=== PATIENT | female | born 1950 | race Caucasian/White ===

== ENCOUNTER 2017-11-22 14:14 | Emergency (ER) | payer MEDICARE, MEDICAID, SELFPAY ==
[2017-11-22 14:15] VITALS: BP 142/62; PULSE 66; RESP 16; TEMP 36.8; O2SAT 91; BMI 46.1
--- NOTE | 2017-11-22 14:25 | ED.RN ---
THIS NURSE CALLED DR. ALMONTE'S OFFICE AND PATIENT HAS NOT BEEN SEEN BY HIM THERE. PATIENT HAS NOT BEEN SEEN BY PCP SINCE D/C FROM [facility] A MONTH AGO.
--- NOTE | 2017-11-22 15:38 | ED.VISSUMM ---
- ER Visit Summary Date of Service: 11/22/17 Chief Complaint: Left leg leaking History of Present Illness: The patient is a 67 F who states that last night she scratched her left anterior leg. It has been leaking lymph fluid since. Her legs are more swollen than normal because she did not take her Lasix on Sunday and only part of the way on Sunday. She typically takes 40 mg in the morning and 20 mg in the afternoon when she needs it. She cannot get the fluid stopped draining from the pinpoint wound on the left leg. No fevers. Physical Examination: Afebrile vital signs are stable 2/6 pitting edema of the lower extremities bilaterally. There is a pinpoint puncture wound to the left anterior leg. No surrounding erythema or evidence of infection. There is draining lymph fluid. Emergency Department Course and Treatment: 3 layers of Dermabond were applied drying in between with oxygen. Drainage was stopped. Wound was dressed. Patient was given 60 mg of Lasix here. She will take Lasix 40 mg twice daily ?4 days. She is to monitor for signs of infection return if worsening. Impression: 1. Lymphedema 2. Puncture wound left leg with repair This note was generated with [employer] dictation software. It may contain incorrect words, spelling, and punctuation that were not noted in review of the chart prior to signing ED Disposition - Plan for ED Patient: Disposition: Home or Assisted Living Chief Complaint: Wound Instructions: ED Wound Puncture General, ED Lymphedema Prescriptions: Furosemide [Lasix] 40 mg PO BIDLX #8 tab Referrals: Dale Vivar DO [Primary Care Provider] - 1 Week if not improving
--- NOTE | 2017-11-22 15:42 | ED.DCSUM_ITS ---
- ER Visit Summary Date of Service: 11/22/17 Chief Complaint: Left leg leaking History of Present Illness: The patient is a 67 F who states that last night she scratched her left anterior leg. It has been leaking lymph fluid since. Her legs are more swollen than normal because she did not take her Lasix on Sunday and only part of the way on Sunday. She typically takes 40 mg in the morning and 20 mg in the afternoon when she needs it. She cannot get the fluid stopped draining from the pinpoint wound on the left leg. No fevers. Physical Examination: Afebrile vital signs are stable 2/6 pitting edema of the lower extremities bilaterally. There is a pinpoint puncture wound to the left anterior leg. No surrounding erythema or evidence of infection. There is draining lymph fluid. Emergency Department Course and Treatment: 3 layers of Dermabond were applied drying in between with oxygen. Drainage was stopped. Wound was dressed. Patient was given 60 mg of Lasix here. She will take Lasix 40 mg twice daily ? 4 days. She is to monitor for signs of infection return if worsening. Impression: 1. Lymphedema 2. Puncture wound left leg with repair This note was generated with [employer] dictation software. It may contain incorrect words, spelling, and punctuation that were not noted in review of the chart prior to signing ED Disposition - Plan for ED Patient: Disposition: Home or Assisted Living Chief Complaint: Wound Instructions: ED Wound Puncture General, ED Lymphedema Prescriptions: Furosemide [Lasix] 40 mg PO BIDLX #8 tab Referrals: Dale Vivar DO [Primary Care Provider] - 1 Week if not improving
[2017-11-22] MEDS: Furosemide 40 MG Tablet 60 MG PO (15:54)
[2017-11-22 15:59] VITALS: PULSE 69; RESP 17; O2SAT 92
== END 2017-11-22 16:02 | disposition home or self-care (01) ==
PROVIDERS: Emergency Provider Emergency Medicine; Family Provider Student in an Organized Health Care Education/Training Program; PCP Student in an Organized Health Care Education/Training Program
DX: I89.0 Lymphedema, not elsewhere classified (principal); S81.832A Puncture wound without foreign body, left lower leg, initial encounter; E66.01 Morbid (severe) obesity due to excess calories; Z72.0 Tobacco use; X58.XXXA Exposure to other specified factors, initial encounter; Y93.89 Activity, other specified; Y92.009 Unspecified place in unspecified non-institutional (private) residence as the place of occurrence of the external cause; Y99.8 Other external cause status
CPT/HCPCS: 12001; 99283

== ENCOUNTER 2017-12-15 19:25 | Inpatient (IN) | payer MEDICARE, MEDICAID, SELFPAY ==
[2017-12-15 19:26] VITALS: BP 142/60; PULSE 90; RESP 16; TEMP 38.8; O2SAT 90; BMI 63.6
--- NOTE | 2017-12-15 19:41 | EKG12_ITS ---
Test Reason : GEN ILLNESS Blood Pressure : / mmHG Vent. Rate : 085 BPM Atrial Rate : 085 BPM P-R Int : 236 ms QRS Dur : 096 ms QT Int : 352 ms P-R-T Axes : 028 000 -44 degrees QTc Int : 418 ms Atrial flutter with 3:[address] & T wave abnormality, consider inferior ischemia ST & T wave abnormality, consider anterior ischemia Abnormal ECG Confirmed by REUBEN MEEK, KATELYNN ([id number]), fan mail editor WILMAR VILLARREAL ([id number]) on 12/18/2017 1:24:59 PM Referred By: DOUG Confirmed By:KATELYNN ALEXIS MD
[2017-12-15 20:07] LABS: Bacteria 0 SEEN /hpf (None Seen); Mucous, Urine 0 SEEN /hpf (<or=2+); Squamous Epithelial Cells - UA 0 SEEN /hpf (5-10); White Blood Cells 0 SEEN /hpf (0-5)
[2017-12-15 20:14] LABS: Absolute Lymphocyte Count 1.17 X10^3/ul (0.83-4.51); Absolute Neutrophil Count 11.3 X10^3/uL (2.0-7.7); Basophil# 0.02 X10^3/uL; Basophil% 0.1 % (0-1); Eosinophil# 0.11 X10^3/uL; Eosinophils% 0.8 % (0-5); Hemoglobin 11.3 g/dl (12.0-15.0); Lymphocyte # 1.17 X10^3/ul (4.0); Lymphocyte % 8.7 % (19-41); Mean Corp Hgb Conc 29.7 g/gl (32-36); Mean Corpuscular Hgb 24.9 pg (27.0-32.0); Mean Corpuscular Volume 83.9 fL (81-99); Mean Platelet Vol. 11.2 fl (6.2-12.0); Neutrophil # 11.25 X10^3/uL (2.7-7.7); Neutrophil % 84.1 % (47-70); Platelet Count 250 K/mm3 (150-450); RBC Distribution Width CV 20.3 % (11.6-14.6); RBC Distribution Width SD 61.9 fl (35.1-43.9); Red Blood Count 4.53 M/mm3 (4.2-5.4); White Blood Count 13.4 K/mm3 (4.4-11.0)
[2017-12-15 20:14] LABS: Color, Urine Yellow (Yellow); Glucose, Dipstick Normal (Normal); Ketone-Dipstick Negative (Negative); Leukocyte Esterase-Dipstick Negative /ul (Negative); Nitrite-Dipstick Negative (Negative); Occult Blood-Urine Negative /ul (Negative); Protein-Dipstick Negative (Negative); Urine Bilirubin Dipstick Negative (Negative); Urine Clarity Clear (Clear); Urine Urobilinogen Normal (Normal)
[2017-12-15 20:15] LABS: Differential Indicated SCAN CRITERIA MET; POSITIVE COUNT NO; POSITIVE DIFFERENTIAL NO; POSITIVE MORPHOLOGY YES
--- NOTE | 2017-12-15 20:15 | RAD_ITS ---
STUDY: X-RAY CHEST REASON FOR EXAM: Female, 67 years old. Shortness of breath. TECHNIQUE: Single AP portable view of the chest. COMPARISON: 19 March 2016 FINDINGS: Sternotomy wires are midline. Mediastinal clips are in place. Low lung volume with mild prominent interstitial markings and vascular crowding is present. There is no demonstrated pleural abnormality. There is mild cardiac enlargement. Normal mediastinum and theresa. Normal visualized pulmonary arteries. Normal visualized aortic arch and descending thoracic aorta. Normal visualized thoracic spine. Normal visualized ribs, clavicles, and shoulders. There is no demonstrated abnormality of the visualized soft tissue structures of the upper abdomen. RAD/Chest 1 View (Portable) IMPRESSION: Low lung volume with question of pulmonary vascular prominence and interstitial prominence, query CHF exacerbation in the appropriate clinical setting. Electronically Signed: Mynor Jacinto DO at 20:40 EDT , Service support ,
[2017-12-15 20:20] LABS: Anion Gap 7 (5-15); BUN 27 mg/dL (7-18); Calcium,Total 8.5 mg/dL (8.5-10.1); Chloride 102 mmol/L (98-107); EST Glomerular Filtration Rate 59 mL/min (>60); Est Glom Filt Rate - Afr Amer 72 mL/min (>60); Estimated Creatinine Clearance 48.43 ml/min; Glucose 100 mg/dL (74-106); Potassium 5.5 mmol/L (3.5-5.1); Sodium Level 136 mmol/L (136-145)
[2017-12-15 20:40] LABS: Anisocytosis 1+; Differential Comment SCANNED; Hypochromasia 1+; Polychromasia 1+
[2017-12-15 20:41] LABS: Crenated RBC RARE; Ovalocyte 1+
[2017-12-15 20:42] LABS: Red Blood Cells-Urine 0-5 SEEN /hpf (0-5)
[2017-12-15] MEDS: 0.9% Normal Saline 1,000 ML 15 ML IV (20:43)
[2017-12-15] MEDS: Acetaminophen 500 MG Tablet 1000 MG PO (20:52)
[2017-12-15] MEDS: Ceftriaxone 1 GM/50 ML BAG IV (21:01)
[2017-12-15] MEDS: fentaNYL 100 MCG/2 ML Ampul 25 MCG IV (21:25)
--- NOTE | 2017-12-15 21:37 | ED.DCSUM_ITS ---
- ER Visit Summary Date of Service: 12/15/17 Chief Complaint: Tremors History of Present Illness: The patient is a 67 F who states she went to [place] ER today because of left leg pain and swelling. A venous ultrasound was reportedly negative. She was discharged home. states he had difficult time getting her into the house and she started shaking from the waist up. 911 was called and she was transported. Patient was noted to have a fever here but states that she did not realize she had a fever earlier. Patient is currently on home oxygen and just got it yesterday. She does not know what her oxygen saturation normally is. She denies chest pain or shortness of breath. Past history significant for coronary disease, CHF, COPD, diabetes, and neuropathy. Physical Examination: Blood pressure is 140/103, temperature 101.8, heart rate 90, respiratory rate 16, pulse ox 90% on 2 L nasal cannula. She is in the mid 90s on 4 L at the time of my exam. Patient is obese female sitting upright in bed. Head neck examination is unremarkable. Heart is regular rate and rhythm. Lung sounds are diminished at the bases bilaterally. Abdomen is soft, obese, nontender. Lower extremity examination was 2-3+ edema to the bilateral legs. She has erythema and warmth of the left anterior and lateral lower leg. Test Results: CBC was a white count of 13.4 with 84% neutrophils. Chemistry studies are significant only for potassium of 5.5. Urine is normal. EKG is sinus 85 with mild anterior and lateral ST depression. Portable chest x-ray shows low lung volumes. There is questionable pulmonary vascular prominence and questionable CHF. Emergency Department Course and Treatment: Blood cultures were sent. Patient is given Tylenol for fever along with IV Rocephin for her cellulitis. At this time she will be admitted for further treatment and care. Treatment Plan: [] Disposition: Admit Impression: Cellulitis left lower extremity This note was generated with [employer] dictation software. It may contain incorrect words, spelling, and punctuation that were not noted in review of the chart prior to signing ED Disposition - Plan for ED Patient: Chief Complaint: General Illness Referrals: Dale Vivar DO [Primary Care Provider] -
[2017-12-15 21:53] VITALS: BP 116/51; PULSE 79; RESP 16; O2SAT 93
[2017-12-15 21:57] VITALS: BP 116/51; PULSE 78; RESP 22; TEMP 38.8; O2SAT 94
--- NOTE | 2017-12-15 22:39 | PCM.HP.STD ---
Problem List (1) Left leg cellulitis Status: Acute (2) COPD (chronic obstructive pulmonary disease) Status: Acute (3) Atherosclerotic heart disease Status: Chronic (4) Neuropathy, diabetic Status: Chronic (5) Type 2 diabetes mellitus Status: Chronic History of Present Illness Date of Admission: 12/15/17 Chief Complaint: Left leg cellulitis The patient is a 67 year old female w/ h/o chronic systolic heart failure, COPD, CAD, HTN, DMII and edema admitted for left lower extremity cellulitis. She was recently evaluated in the ED for lower extremity swelling. She had a venous US done and it was negative. She was discharged home but her was unable to take her into the house by himself. She has gotten progressively weaker in the past few days to weeks. She also noted worsening redness, pain and swelling in her left leg. She does not remember when it started. Nothing appeared to make the redness better or worse. She recently had her home oxygen as well. Paramedics were called because is unable to care for patient and she is unable to care for her ADLs. Past Medical History Past Medical History (Chronic Problems): Chronic Problems Neuropathy, diabetic (Chronic) Type 2 diabetes mellitus (Chronic) Atherosclerotic heart disease (Chronic) Allergies diltiazem HCl [From Cardizem] Adverse Reaction (Mild, Verified 11/22/17 14:17) Swelling Home Medications: Ambulatory Orders Medication Instructions Recorded Aspirin E.C. [Ecotrin] 81 mg PO DAILY 09/07/14 Isosorbide Mononitrate [Isosorbide 60 mg PO DAILY 09/07/14 Mononitrate ER] Lisinopril [Zestril] 20 mg PO DAILY 09/07/14 Metformin HCl [Glucophage] 1,000 mg PO BIDCM 09/07/14 Atorvastatin Calcium [Lipitor] 80 mg PO QHS 03/19/16 Clopidogrel Bisulfate [Plavix] 75 mg PO DAILY 03/19/16 Oxycodone HCl/Acetaminophen 2 tablet PO Q6H PRN PRN 03/19/16 [Percocet 7.5-325 mg Tablet] Pregabalin [Lyrica] 225 mg PO BID 03/19/16 Budesonide/Formoterol 160/4.5 2 puff INHALATION BID 12/15/17 [Symbicort 160/4.5 Mcg Inhaler (SP)] Carvedilol [Coreg (Beta Adriana)] 6.25 mg PO BID 12/15/17 Furosemide [Lasix] 40 mg PO BID 12/15/17 Surgical History: coronary bypass surgery, herniorrhaphy, - - cardiac stent placement, left elbow surgery for nerve entrapment Psychiatric History: No pertinent psych hx 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: No pertinent PREDICTIVE MAINTENANCE TECHNICIAN history Smoking Status: Current every day smoker - *Family History Maternal History Items: Heart Disease, Hypertension Paternal History Items: Heart Disease, Hypertension Review of Systems Constitutional: Denies: Chills, Fever, Weight Change HEENT: Denies: Head Aches, Sinus Congestion, Sinus Drainage Cardiovascular: Denies: Chest Pain, Palpitations Respiratory: Denies: Cough, Shortness of breath at rest, Sputum production Gastrointestinal: Denies: Abdominal Pain, Nausea, Vomiting Genitourinary: Denies: Dysuria Musculoskeletal: Denies: Joint Pain, Joint Tenderness Skin: Denies: Rash, Wounds Neurological: Denies: Numbness, Tingling, Focal weakness Psychiatric: Denies: Anxiety, Depression, Homicidal Ideations, Suicidal Ideations Hematologic/ Lymphatic: Denies: Easy Bruising, Easy Bleeding VTE Information - Inpt Only VTE Present on Admission: No VTE Mechan Device Prophylaxis: SCD's VTE Pharm Prophylaxis ordered?: Yes Patient Problems: Active and Suspected Problems Left leg cellulitis (Acute) - Physical Exam General: Alert, Oriented x3, Cooperative HEENT: Atraumatic, PERRLA, EOMI, Normocephalic Neck: Supple, No JVD, Negative Carotid Bruits Lungs: Clear to auscultation, Normal air movement Cardiovascular: Regular rate, No murmurs Abdomen: Bowel Sounds Present, Soft, Non Tender Extremities: Capillary Refill Less than 3 Seconds, Edema, Tenderness Skin: No breakdown, - - Left leg cellulitis Musculoskeletal: No Tenderness to Palpation of Joints or Extremities Neurological: Cranial nerves II-XII grossly intact Psych/Mental Status: Normal Affect, Appropriate Vital Signs Temp Pulse Resp BP Pulse Ox 101.9 F H 78 22 H 116/51 L 94 12/15/17 21:57 12/15/17 21:57 12/15/17 21:57 12/15/17 21:57 12/15/17 21:57 Oxygen Flow Rate (L/min) 2 Oxygen Delivery Method Nasal Cannula Weight: 168.18 kg Body Mass Index (BMI) 63.6 Laboratory Tests Past 24 Hrs 12/15/17 12/15/17 12/15/17 19:30 19:30 20:00 WBC 13.4 H RBC 4.53 Hgb 11.3 L Hct 38.0 MCV 83.9 MCH 24.9 L MCHC 29.7 L RDW 20.3 H RDW Differential 61.9 H Plt Count 250 MPV 11.2 Immature Gran % (Auto) 0.300 Neut % (Auto) 84.1 H Lymph % (Auto) 8.7 L [place] % (Auto) 6.0 Eos % (Auto) 0.8 Baso % (Auto) 0.1 Absolute Neuts (auto) 11.3 H Absolute Lymphs (auto) 1.17 Total Counted Not Reportable Differential Comment SCANNED RBC Morphology RARE Polychromasia 1+ Hypochromasia 1+ Anisocytosis 1+ Ovalocytes 1+ Sodium 136 Potassium 5.5 H Chloride 102 Carbon Dioxide 27.0 Anion Gap 7 BUN 27 H Creatinine 1.00 Estim Creat Clear Calc 48.43 Est GFR (MDRD) Af Amer 72 Est GFR (MDRD) Non-Af 59 L BUN/Creatinine Ratio 27.0 H Glucose 100 Calcium 8.5 Urine Color Yellow Urine Clarity Clear Urine pH 6.0 Ur Specific [place] 1.010 Urine Protein Negative Urine Glucose (UA) Normal Urine Ketones Negative Urine Occult Blood Negative Urine Nitrite Negative Urine Bilirubin Negative Urine Urobilinogen Normal Ur Leukocyte Esterase Negative Urine RBC 0-5 SEEN Urine WBC 0 SEEN Ur Squamous Epith Cells 0 SEEN Urine Bacteria 0 SEEN Urine Mucus 0 SEEN Assessment/Plan Active and Suspected Problems Left leg cellulitis (Acute) 67 year old female w/ h/o chronic systolic heart failure, COPD, CAD, HTN, DMII and edema admitted for left lower extremity cellulitis. 1) Left leg cellulitis: Will start zosyn and vanco. Cultures pending. Monitor. 2) Hyperkalemia: Hold ACEI. Will get AM labs. Monitor. 3) Physical decondition: PT / OT consulted. Probably may need placement if unable to care for her ADLs. unlikely to be able to care for her as he had a hard time walking her into the house. Will likely need social work help for home health vs placement. 4) Chronic issues: Chronic systolic heart failure, COPD, CAD, HTN, DMII: Resume home meds. 5) Prophylaxis: SCD / heparin.
[2017-12-15 23:17] VITALS: BMI 46.1; BMI 46.2
[2017-12-15 23:54] LABS: Erythrocyte Sedimentation Rate 62 mm/hr (0-30)
[2017-12-15 23:58] VITALS: RESP 15; O2SAT 97
[2017-12-16] VITALS (14 sets, daily range): BP systolic 110–127; BP diastolic 45–77; PULSE 64–75; RESP 15–18; TEMP 36.7–37.6; O2SAT 94–98
[2017-12-16] MEDS: oxyCODONE 5 MG Tablet PO ×4 (00:33→20:38)
--- NOTE | 2017-12-16 00:36 | PCM.RX.CS ---
Consult Pharmacy has been consulted to manage selected antiobiotic: Vancomycin Type of Consult: New start Suspected Infection: Skin/Soft tissue Prior Doses of Antibiotics Received/Current Regimen: Medications Vancomycin HCl 1,750 mg/ (Sodium Chloride) 535 mls @ 260 mls/hr IV X1 ONE Stop: 12/16/17 02:33 Last Admin: 12/16/17 00:24 Dose: 260 mls/hr Labs: Sodium 136 mmol/L (136-145) 12/15/17 19:30 Potassium 5.5 mmol/L (3.5-5.1) H 12/15/17 19:30 Chloride 102 mmol/L (98-107) 12/15/17 19:30 Carbon Dioxide 27.0 mmol/L (21.0-32.0) 12/15/17 19:30 Anion Gap 7 (5-15) 12/15/17 19:30 BUN 27 mg/dL (7-18) H 12/15/17 19:30 Creatinine 1.00 mg/dL (0.55-1.02) 12/15/17 19:30 Est GFR (MDRD) Af Amer 72 mL/min (>60) 12/15/17 19:30 Est GFR (MDRD) Non-Af 59 mL/min (>60) L 12/15/17 19:30 BUN/Creatinine Ratio 27.0 RATIO (10-20) H 12/15/17 19:30 Glucose 100 mg/dL (74-106) 12/15/17 19:30 Weight used for dosin.7 kg Estimated Creatinine Clearance: 82 Goal Trough: 10-15 mcg/mL Pharmacy Plan for Drug Dosing: Pharmacy Service will continue to monitor and adjust dosing as required. Follow-Up Labs: Trough Vancomycin Labs to be done on [date and time ordered]: 12/17/17 @1132
[2017-12-16 02:44] LABS: M R Staph aureus DNA By PCR Negative (Negative); Probe Check PASS; Specimen Processing Control PASS
[2017-12-16 02:46] LABS: Staph aureus DNA By PCR POSITIVE (Negative)
[2017-12-16] MEDS: Piperacil/Tazobactam 3.375 GM/50 ML ML IV ×3 (04:37→20:39)
[2017-12-16 07:05] LABS: Bedside Glucose 111 mg/dL (70-110)
[2017-12-16] MEDS: Albuterol 2.5 MG/3 ML VIAL.NEB. INHALATION ×3 (07:43→19:20)
[2017-12-16] MEDS: Budesonide Respules 0.5 MG/2 ML AMPUL.NEB. INHALATION ×2 (07:43→19:20)
--- NOTE | 2017-12-16 08:44 | RAD_ITS ---
STUDY: X-RAY - LEFT TIBIA AND FIBULA REASON FOR EXAM: Female, 67 years old. Redness, swelling TECHNIQUE: 2 view(s) of the tibia and fibula were obtained. COMPARISON: None. FINDINGS: There is soft tissue swelling. There is evidence of vein harvesting. There is no fracture. There is no osseous destruction. RAD/Tibia & Fibula 2 Views IMPRESSION: Soft tissue swelling Electronically Signed: Irvin Clement MD at 10:09 EDT Tel , Service support ,
--- NOTE | 2017-12-16 08:48 | PCM.PROGNOTE ---
Patient Problems: Active and Suspected Problems Left leg cellulitis (Acute) Subjective: Chief complaint: Follow-up after admission for left lower extremity cellulitis and mild hyperkalemia. Patient seen and examined. No acute events overnight. She is complaining of sharp pain of the left leg which did not improve with OxyIR. Denied fever chills. No chest pain or shortness of breath. Apparently, she went to [facility] [place] because of left leg swelling and pain, was admitted for cellulitis and received antibiotics and she was discharged on antibiotics. Since yesterday, pain and swelling as well as redness of the left leg recurred and she went to another facility, venous Doppler done and showed no evidence of DVT and she was discharged home. Last night, her called the squad because of the pain again and he could not take care of his . She has been having spikes of fever last night, blood pressure and heart rate is stable, pulse ox is 95% on 2 L. - Physical Exam General: Alert, Oriented x3, Cooperative, - - She is in moderate pain. HEENT: Atraumatic, PERRLA, EOMI Oral: Moist Mucosa, No Gingival or Mucosal Lesions/ Ulcerations Neck: Supple, No JVD, Negative Carotid Bruits, Trachea Midline, Thyroid Normal Size and Texture Lungs: Clear to auscultation, No rhonchi, No wheeze, No rales, Diminished Cardiovascular: Regular rate, Regular Rhythm, Normal S1, Normal S2, PMI Normal Abdomen: Bowel Sounds Present, Soft, Non Tender, Non-Distended, No Hepato-splenomegaly, Obese Extremities: No clubbing, No cyanosis, Edema - + Edema. Left leg: Swelling, erythema involving the left leg from just below the knee down to the left ankle, hot to palpation, tender. Skin: No rashes, No breakdown Lymphatic: No Cervical, Supraclavicular, or Inguinal Adenopathy Neurological: Cranial nerves II-XII grossly intact, Neuro grossly intact Psych/Mental Status: Normal Affect, Appropriate, Alert and oriented to time, place, person, mood and affect Vital Signs Temp Pulse Resp BP Pulse Ox 99.7 F H 75 18 113/58 L 95 12/16/17 04:29 12/16/17 07:50 12/16/17 07:50 12/16/17 04:29 12/16/17 07:50 Oxygen Flow Rate (L/min) 4 Oxygen Delivery Method Nasal Cannula Weight: 270 lb 8.115 oz Body Mass Index (BMI) 46.1 Intake and Output for Last 24 Hours 12/14/17 12/15/17 12/16/17 23:59 23:59 23:59 Intake Total 757 / 757 Output Total 1750 / 1750 Balance -993 / -993 Laboratory Tests Past 24 Hrs 12/16/17 00:15 S.aureus Protein A PCR POSITIVE H MRSA (PCR) Negative POC Glucose 12/16/17 06:57 POC Glucose 111 H Laboratory Tests 12/16/17 12/16/17 12/15/17 Range/Units 06:57 00:15 20:00 WBC (4.4-11.0) K/mm3 RBC (4.2-5.4) M/mm3 Hgb (12.0-15.0) g/dl Hct (37-47) % MCV (81-99) fL MCH (27.0-32.0) pg MCHC (32-36) g/gl RDW (11.6-14.6) % RDW Differential (35.1-43.9) fl Plt Count (150-450) K/mm3 MPV (6.2-12.0) fl Immature Gran % (Auto) (0.0-0.9) % Neut % (Auto) (47-70) % Lymph % (Auto) (19-41) % [place] % (Auto) (0-10) % Eos % (Auto) (0-5) % Baso % (Auto) (0-1) % Absolute Neuts (auto) (2.0-7.7) X10^3/uL Absolute Lymphs (auto) (0.83-4.51) X10^3/ul Total Counted Differential Comment RBC Morphology Polychromasia Hypochromasia Anisocytosis Ovalocytes ESR (0-30) mm/hr Sodium (136-145) mmol/L Potassium (3.5-5.1) mmol/L Chloride (98-107) mmol/L Carbon Dioxide (21.0-32.0) mmol/L Anion Gap (5-15) BUN (7-18) mg/dL Creatinine (0.55-1.02) mg/dL Estim Creat Clear Calc ml/min Est GFR (MDRD) Af Amer (>60) mL/min Est GFR (MDRD) Non-Af (>60) mL/min BUN/Creatinine Ratio (10-20) RATIO Glucose (74-106) mg/dL Calcium (8.5-10.1) mg/dL Urine Color Yellow (Yellow) Urine Clarity Clear (Clear) Urine pH 6.0 (5.0 - 8.0) Ur Specific [place] 1.010 (1.002-1.030) Urine Protein Negative (Negative) mg/dl Urine Glucose (UA) Normal (Normal) mg/dl Urine Ketones Negative (Negative) mg/dl Urine Occult Blood Negative (Negative) /ul Urine Nitrite Negative (Negative) Urine Bilirubin Negative (Negative) mg/dL Urine Urobilinogen Normal (Normal) mg/dl Ur Leukocyte Esterase Negative (Negative) /ul Urine RBC 0-5 SEEN (0-5) /hpf Urine WBC 0 SEEN (0-5) /hpf Ur Squamous Epith Cells 0 SEEN (5-10) /hpf Urine Bacteria 0 SEEN (None Seen) /hpf Urine Mucus 0 SEEN (<or=2+) /hpf S.aureus Protein A PCR POSITIVE H (Negative) MRSA (PCR) Negative (Negative) POC Glucose 111 H (70-110) mg/dL 12/15/17 12/15/17 12/15/17 Range/Units 19:30 19:30 19:30 WBC 13.4 H (4.4-11.0) K/mm3 RBC 4.53 (4.2-5.4) M/mm3 Hgb 11.3 L (12.0-15.0) g/dl Hct 38.0 (37-47) % MCV 83.9 (81-99) fL MCH 24.9 L (27.0-32.0) pg MCHC 29.7 L (32-36) g/gl RDW 20.3 H (11.6-14.6) % RDW Differential 61.9 H (35.1-43.9) fl Plt Count 250 (150-450) K/mm3 MPV 11.2 (6.2-12.0) fl Immature Gran % (Auto) 0.300 (0.0-0.9) % Neut % (Auto) 84.1 H (47-70) % Lymph % (Auto) 8.7 L (19-41) % [place] % (Auto) 6.0 (0-10) % Eos % (Auto) 0.8 (0-5) % Baso % (Auto) 0.1 (0-1) % Absolute Neuts (auto) 11.3 H (2.0-7.7) X10^3/uL Absolute Lymphs (auto) 1.17 (0.83-4.51) X10^3/ul Total Counted Not Reportable Differential Comment SCANNED RBC Morphology RARE Polychromasia 1+ Hypochromasia 1+ Anisocytosis 1+ Ovalocytes 1+ ESR 62 H (0-30) mm/hr Sodium 136 (136-145) mmol/L Potassium 5.5 H (3.5-5.1) mmol/L Chloride 102 (98-107) mmol/L Carbon Dioxide 27.0 (21.0-32.0) mmol/L Anion Gap 7 (5-15) BUN 27 H (7-18) mg/dL Creatinine 1.00 (0.55-1.02) mg/dL Estim Creat Clear Calc 48.43 ml/min Est GFR (MDRD) Af Amer 72 (>60) mL/min Est GFR (MDRD) Non-Af 59 L (>60) mL/min BUN/Creatinine Ratio 27.0 H (10-20) RATIO Glucose 100 (74-106) mg/dL Calcium 8.5 (8.5-10.1) mg/dL Urine Color (Yellow) Urine Clarity (Clear) Urine pH (5.0 - 8.0) Ur Specific [place] (1.002-1.030) Urine Protein (Negative) mg/dl Urine Glucose (UA) (Normal) mg/dl Urine Ketones (Negative) mg/dl Urine Occult Blood (Negative) /ul Urine Nitrite (Negative) Urine Bilirubin (Negative) mg/dL Urine Urobilinogen (Normal) mg/dl Ur Leukocyte Esterase (Negative) /ul Urine RBC (0-5) /hpf Urine WBC (0-5) /hpf Ur Squamous Epith Cells (5-10) /hpf Urine Bacteria (None Seen) /hpf Urine Mucus (<or=2+) /hpf S.aureus Protein A PCR (Negative) MRSA (PCR) (Negative) POC Glucose (70-110) mg/dL Medical Necessity - Tobacco Use Smoking Status: Current every day smoker Assessment/Plan Active and Suspected Problems Left leg cellulitis (Acute) This is a 67 years old female patient presented to the emergency room because of left leg pain, swelling and redness and she was admitted as a case of acute left lower extremity cellulitis and also found to have mild hyperkalemia. #1 acute left lower extremity cellulitis: In context of recent history of left leg cellulitis that was 2 weeks ago, was admitted to [facility] and discharged on antibiotics. She is on IV Zosyn and vancomycin. She has been having spikes of fever, she does have leukocytosis. Other vital signs are stable. According to the patient, she had venous Doppler of the left leg yesterday at [facility] and showed no DVT. Blood cultures are pending. MRSA screen is positive. Plan: Continue same treatment, x-ray of the left tibia and fibula, collect the venous Doppler report from the outside facility. #2 hyperkalemia: Admission potassium was 5.5. She was on IV fluids. Plan: Repeat potassium this morning, will check creatinine phosphokinase. #3 CAD status post stents: Denies any chest pain or shortness of breath. Continue aspirin, statins, Coreg, isosorbide mononitrate, keep holding lisinopril because of hyperkalemia. #4 COPD: According to the patient, she was started on home oxygen recently at 2 L. At this time, she denies any worsening shortness of breath. Her pulse ox is 95% on 2 L. Chest x-ray reviewed. She is on albuterol every 6 hours and Pulmicort twice daily. #5 type 2 diabetes mellitus: Blood sugar stable, continue ADA diet, Accu-Cheks, metformin, start exercising scale. #6 peripheral diabetic neuropathy: Continue Lyrica and OxyIR as needed. #7 DVT prophylaxis: Subcu heparin. This note was generated with [employer] dictation software. It may contain incorrect words, spelling, and punctuation that were not noted in checking the note before signing. Code Visit Inpatient E&M: 32391 Subs Hosp L2
--- NOTE | 2017-12-16 08:51 | PN_ITS ---
Patient Problems: Active and Suspected Problems Left leg cellulitis (Acute) Subjective: Chief complaint: Follow-up after admission for left lower extremity cellulitis and mild hyperkalemia. Patient seen and examined. No acute events overnight. She is complaining of sharp pain of the left leg which did not improve with OxyIR. Denied fever chills. No chest pain or shortness of breath. Apparently, she went to [facility] because of left leg swelling and pain, was admitted for cellulitis and received antibiotics and she was discharged on antibiotics. Since yesterday , pain and swelling as well as redness of the left leg recurred and she went to another facility, venous Doppler done and showed no evidence of DVT and she was discharged home. Last night, her called the squad because of the pain again and he could not take care of his . She has been having spikes of fever last night, blood pressure and heart rate is stable, pulse ox is 95% on 2 L. - Physical Exam General: Alert, Oriented x3, Cooperative, - - She is in moderate pain. HEENT: Atraumatic, PERRLA, EOMI Oral: Moist Mucosa, No Gingival or Mucosal Lesions/ Ulcerations Neck: Supple, No JVD, Negative Carotid Bruits, Trachea Midline, Thyroid Normal Size and Texture Lungs: Clear to auscultation, No rhonchi, No wheeze, No rales, Diminished Cardiovascular: Regular rate, Regular Rhythm, Normal S1, Normal S2, PMI Normal Abdomen: Bowel Sounds Present, Soft, Non Tender, Non-Distended, No Hepato- splenomegaly, Obese Extremities: No clubbing, No cyanosis, Edema - + Edema. Left leg: Swelling, erythema involving the left leg from just below the knee down to the left ankle , hot to palpation, tender. Skin: No rashes, No breakdown Lymphatic: No Cervical, Supraclavicular, or Inguinal Adenopathy Neurological: Cranial nerves II-XII grossly intact, Neuro grossly intact Psych/Mental Status: Normal Affect, Appropriate, Alert and oriented to time, place, person, mood and affect Vital Signs Temp Pulse Resp BP Pulse Ox 99.7 F H 75 18 113/58 L 95 12/16/17 04:29 12/16/17 07:50 12/16/17 07:50 12/16/17 04:29 12/16/17 07:50 Oxygen Flow Rate (L/min) 4 Oxygen Delivery Method Nasal Cannula Weight: 270 lb 8.115 oz Body Mass Index (BMI) 46.1 Intake and Output for Last 24 Hours 12/14/17 12/15/17 12/16/17 23:59 23:59 23:59 Intake Total 757 / 757 Output Total 1750 / 1750 Balance -993 / -993 Laboratory Tests Past 24 Hrs 12/16/17 00:15 S.aureus Protein A PCR POSITIVE H MRSA (PCR) Negative POC Glucose 12/16/17 06:57 POC Glucose 111 H Laboratory Tests 3 12/16/17 12/16/17 12/15/17 Range/Units 06:57 00:15 20:00 WBC (4.4-11.0) K/mm3 RBC (4.2-5.4) M/mm3 Hgb (12.0-15.0) g/dl Hct (37-47) % MCV (81-99) fL MCH (27.0-32.0) pg MCHC (32-36) g/gl RDW (11.6-14.6) % RDW Differential (35.1-43.9) fl Plt Count (150-450) K/mm3 MPV (6.2-12.0) fl Immature Gran % (Auto) (0.0-0.9) % Neut % (Auto) (47-70) % Lymph % (Auto) (19-41) % [place] % (Auto) (0-10) % Eos % (Auto) (0-5) % Baso % (Auto) (0-1) % Absolute Neuts (auto) (2.0-7.7) X10^3/uL Absolute Lymphs (auto) (0.83-4.51) X10^3/ul Total Counted Differential Comment RBC Morphology Polychromasia Hypochromasia Anisocytosis Ovalocytes ESR (0-30) mm/hr Sodium (136-145) mmol/L Potassium (3.5-5.1) mmol/L Chloride (98-107) mmol/L Carbon Dioxide (21.0-32.0) mmol/L Anion Gap (5-15) BUN (7-18) mg/dL Creatinine (0.55-1.02) mg/dL Estim Creat Clear Calc ml/min Est GFR (MDRD) Af Amer (>60) mL/min Est GFR (MDRD) Non-Af (>60) mL/min BUN/Creatinine Ratio (10-20) RATIO Glucose (74-106) mg/dL Calcium (8.5-10.1) mg/dL Urine Color Yellow (Yellow) Urine Clarity Clear (Clear) Urine pH 6.0 (5.0 - 8.0) Ur Specific [place] 1.010 (1.002-1.030) Urine Protein Negative (Negative) mg/dl Urine Glucose (UA) Normal (Normal) mg/dl Urine Ketones Negative (Negative) mg/dl Urine Occult Blood Negative (Negative) /ul Urine Nitrite Negative (Negative) Urine Bilirubin Negative (Negative) mg/dL Urine Urobilinogen Normal (Normal) mg/dl Ur Leukocyte Esterase Negative (Negative) /ul Urine RBC 0-5 SEEN (0-5) /hpf Urine WBC 0 SEEN (0-5) /hpf Ur Squamous Epith Cells 0 SEEN (5-10) /hpf Urine Bacteria 0 SEEN (None Seen) /hpf Urine Mucus 0 SEEN (<or=2+) /hpf S.aureus Protein A PCR POSITIVE H (Negative) MRSA (PCR) Negative (Negative) POC Glucose 111 H (70-110) mg/dL 3 12/15/17 12/15/17 12/15/17 Range/Units 19:30 19:30 19:30 WBC 13.4 H (4.4-11.0) K/mm3 RBC 4.53 (4.2-5.4) M/mm3 Hgb 11.3 L (12.0-15.0) g/dl Hct 38.0 (37-47) % MCV 83.9 (81-99) fL MCH 24.9 L (27.0-32.0) pg MCHC 29.7 L (32-36) g/gl RDW 20.3 H (11.6-14.6) % RDW Differential 61.9 H (35.1-43.9) fl Plt Count 250 (150-450) K/mm3 MPV 11.2 (6.2-12.0) fl Immature Gran % (Auto) 0.300 (0.0-0.9) % Neut % (Auto) 84.1 H (47-70) % Lymph % (Auto) 8.7 L (19-41) % [place] % (Auto) 6.0 (0-10) % Eos % (Auto) 0.8 (0-5) % Baso % (Auto) 0.1 (0-1) % Absolute Neuts (auto) 11.3 H (2.0-7.7) X10^3/uL Absolute Lymphs (auto) 1.17 (0.83-4.51) X10^3/ul Total Counted Not Reportable Differential Comment SCANNED RBC Morphology RARE Polychromasia 1+ Hypochromasia 1+ Anisocytosis 1+ Ovalocytes 1+ ESR 62 H (0-30) mm/hr Sodium 136 (136-145) mmol/L Potassium 5.5 H (3.5-5.1) mmol/L Chloride 102 (98-107) mmol/L Carbon Dioxide 27.0 (21.0-32.0) mmol/L Anion Gap 7 (5-15) BUN 27 H (7-18) mg/dL Creatinine 1.00 (0.55-1.02) mg/dL Estim Creat Clear Calc 48.43 ml/min Est GFR (MDRD) Af Amer 72 (>60) mL/min Est GFR (MDRD) Non-Af 59 L (>60) mL/min BUN/Creatinine Ratio 27.0 H (10-20) RATIO Glucose 100 (74-106) mg/dL Calcium 8.5 (8.5-10.1) mg/dL Urine Color (Yellow) Urine Clarity (Clear) Urine pH (5.0 - 8.0) Ur Specific [place] (1.002-1.030) Urine Protein (Negative) mg/dl Urine Glucose (UA) (Normal) mg/dl Urine Ketones (Negative) mg/dl Urine Occult Blood (Negative) /ul Urine Nitrite (Negative) Urine Bilirubin (Negative) mg/dL Urine Urobilinogen (Normal) mg/dl Ur Leukocyte Esterase (Negative) /ul Urine RBC (0-5) /hpf Urine WBC (0-5) /hpf Ur Squamous Epith Cells (5-10) /hpf Urine Bacteria (None Seen) /hpf Urine Mucus (<or=2+) /hpf S.aureus Protein A PCR (Negative) MRSA (PCR) (Negative) POC Glucose (70-110) mg/dL Medical Necessity - Tobacco Use Smoking Status: Current every day smoker Assessment/Plan Active and Suspected Problems Left leg cellulitis (Acute) This is a 67 years old female patient presented to the emergency room because of left leg pain, swelling and redness and she was admitted as a case of acute left lower extremity cellulitis and also found to have mild hyperkalemia. #1 acute left lower extremity cellulitis: In context of recent history of left leg cellulitis that was 2 weeks ago, was admitted to [facility] and discharged on antibiotics. She is on IV Zosyn and vancomycin. She has been having spikes of fever, she does have leukocytosis. Other vital signs are stable. According to the patient, she had venous Doppler of the left leg yesterday at [facility] and showed no DVT. Blood cultures are pending. MRSA screen is positive. Plan: Continue same treatment, x-ray of the left tibia and fibula, collect the venous Doppler report from the outside facility. #2 hyperkalemia: Admission potassium was 5.5. She was on IV fluids. Plan: Repeat potassium this morning, will check creatinine phosphokinase. #3 CAD status post stents: Denies any chest pain or shortness of breath. Continue aspirin, statins, Coreg, isosorbide mononitrate, keep holding lisinopril because of hyperkalemia. #4 COPD: According to the patient, she was started on home oxygen recently at 2 L. At this time, she denies any worsening shortness of breath. Her pulse ox is 95% on 2 L. Chest x-ray reviewed. She is on albuterol every 6 hours and Pulmicort twice daily. #5 type 2 diabetes mellitus: Blood sugar stable, continue ADA diet, Accu-Cheks, metformin, start exercising scale. #6 peripheral diabetic neuropathy: Continue Lyrica and OxyIR as needed. #7 DVT prophylaxis: Subcu heparin. This note was generated with [employer] dictation software. It may contain incorrect words, spelling, and punctuation that were not noted in checking the note before signing. Code Visit Inpatient E&M: 11970 Subs Hosp L2
[2017-12-16] MEDS: Pregabalin 75 MG Capsule 225 MG PO ×2 (09:17→20:54)
[2017-12-16] MEDS: Aspirin E.C. 81 MG Tablet PO (09:18)
[2017-12-16] MEDS: Furosemide 40 MG Tablet PO ×2 (09:18→17:04)
[2017-12-16] MEDS: Morphine 2 MG/ML Syringe IV ×2 (09:18→15:37)
[2017-12-16] MEDS: guaiFENesin 1,200 MG Tablet 1200 MG PO ×2 (09:18→20:49)
[2017-12-16] MEDS: Carvedilol 6.25 MG Tablet PO ×2 (09:19→20:49)
[2017-12-16] MEDS: Vitamin B Comp W-C Capsule 1 CAP PO (09:19)
[2017-12-16] MEDS: metFORMIN HCl 1,000 MG Tablet 1000 MG PO ×2 (09:19→17:04)
[2017-12-16] MEDS: Clopidogrel Bisulfate 75 MG Tablet PO (09:21)
[2017-12-16] MEDS: Isosorbide Mononitrate 60 MG Tablet PO (09:21)
--- NOTE | 2017-12-16 09:35 | PCA ---
Faxed STAT release of medical records to [facility] at [phone];
[2017-12-16 10:34] LABS: Potassium 4.7 mmol/L (3.5-5.1)
--- NOTE | 2017-12-16 11:42 | NURSING ---
Cyber Systems Operations Specialist reported to charge nurse that pt and was asking to be moved to [facility]. Charge nurse Liza reported to be and i went and talked with patient and to see what their concerns where. Pt and stated that pt is always at [facility] and they are familiar with her care. I informed both parties that our doctor had requested that her medical record be sent here from [facility]. Pt stated she felt comfortable staying here then and agreed that staying her would be ok
[2017-12-16 12:46] LABS: Bedside Glucose 156 mg/dL (70-110)
[2017-12-16 15:45] LABS: Bedside Glucose 136 mg/dL (70-110)
[2017-12-16] MEDS: Atorvastatin Calcium 80 MG Tablet PO (20:49)
[2017-12-16 21:10] LABS: Bedside Glucose 137 mg/dL (70-110)
[2017-12-17] VITALS (13 sets, daily range): BP systolic 99–121; BP diastolic 43–54; PULSE 60–92; RESP 15–20; TEMP 36.4–37.1; O2SAT 92–97
[2017-12-17] MEDS: oxyCODONE 5 MG Tablet PO ×5 (00:29→22:25)
[2017-12-17] MEDS: Morphine 2 MG/ML Syringe IV ×2 (03:35→11:20)
[2017-12-17 06:03] LABS: Absolute Lymphocyte Count 1.48 X10^3/ul (0.83-4.51); Absolute Neutrophil Count 8.1 X10^3/uL (2.0-7.7); Basophil# 0.02 X10^3/uL; Basophil% 0.2 % (0-1); Eosinophil# 0.07 X10^3/uL; Eosinophils% 0.7 % (0-5); Hematocrit 31.5 % (37-47); Hemoglobin 9.2 g/dl (12.0-15.0); Lymphocyte # 1.48 X10^3/ul (4.0); Mean Corp Hgb Conc 29.2 g/gl (32-36); Mean Corpuscular Hgb 24.8 pg (27.0-32.0); Mean Corpuscular Volume 84.9 fL (81-99); Mean Platelet Vol. 10.4 fl (6.2-12.0); Monocyte# 0.84 X10^3/uL; Neutrophil # 8.13 X10^3/uL (2.7-7.7); Neutrophil % 76.9 % (47-70); Platelet Count 177 K/mm3 (150-450); RBC Distribution Width CV 20.4 % (11.6-14.6); RBC Distribution Width SD 61.7 fl (35.1-43.9); Red Blood Count 3.71 M/mm3 (4.2-5.4); White Blood Count 10.6 K/mm3 (4.4-11.0)
[2017-12-17 06:04] LABS: Differential Indicated SCAN CRITERIA MET; POSITIVE COUNT NO; POSITIVE DIFFERENTIAL NO; POSITIVE MORPHOLOGY YES
[2017-12-17 06:16] LABS: Differential Comment SCANNED
[2017-12-17 06:17] LABS: Anisocytosis 2+
[2017-12-17 06:18] LABS: Anion Gap 6 (5-15); BUN 20 mg/dL (7-18); BUN/Creat Ratio 28.2 RATIO (10-20); Calcium,Total 8.4 mg/dL (8.5-10.1); Chloride 102 mmol/L (98-107); Creatinine, Serum 0.71 mg/dL (0.55-1.02); EST Glomerular Filtration Rate 88 mL/min (>60); Est Glom Filt Rate - Afr Amer 106 mL/min (>60); Estimated Creatinine Clearance 68.21 ml/min; Glucose 108 mg/dL (74-106); Potassium 4.3 mmol/L (3.5-5.1); Sodium Level 138 mmol/L (136-145)
[2017-12-17] MEDS: Piperacil/Tazobactam 3.375 GM/50 ML ML IV ×3 (06:30→22:22)
[2017-12-17 06:45] LABS: Bedside Glucose 134 mg/dL (70-110)
[2017-12-17] MEDS: Albuterol 2.5 MG/3 ML VIAL.NEB. INHALATION ×3 (07:03→19:08)
[2017-12-17] MEDS: Budesonide Respules 0.5 MG/2 ML AMPUL.NEB. INHALATION ×2 (07:03→19:08)
[2017-12-17] MEDS: Vitamin B Comp W-C Capsule 1 CAP PO (08:15)
[2017-12-17] MEDS: Aspirin E.C. 81 MG Tablet PO (08:15)
[2017-12-17] MEDS: Carvedilol 6.25 MG Tablet PO ×2 (08:15→22:22)
[2017-12-17] MEDS: metFORMIN HCl 1,000 MG Tablet 1000 MG PO ×2 (08:15→16:57)
[2017-12-17] MEDS: Clopidogrel Bisulfate 75 MG Tablet PO (08:16)
[2017-12-17] MEDS: Furosemide 40 MG Tablet PO ×2 (08:16→16:58)
[2017-12-17] MEDS: Isosorbide Mononitrate 60 MG Tablet PO (08:16)
[2017-12-17] MEDS: guaiFENesin 1,200 MG Tablet 1200 MG PO ×2 (08:16→22:22)
[2017-12-17] MEDS: Pregabalin 75 MG Capsule 225 MG PO ×2 (08:19→22:22)
--- NOTE | 2017-12-17 08:36 | PCM.PROGNOTE ---
Patient Problems: Active and Suspected Problems Left leg cellulitis (Acute) Subjective: Chief complaint: Follow-up after admission for left lower extremity cellulitis and mild hyperkalemia. Patient seen and examined. No acute events overnight. Pain of the left significantly improved compared to yesterday. Left leg still warm and dry on palpation. Patient denies any chest pain, denies worsening shortness of breath. Her vital signs are stable, afebrile. - Physical Exam General: Alert, Oriented x3, Cooperative, No apparent distress HEENT: Atraumatic, PERRLA, EOMI Oral: Moist Mucosa, No Gingival or Mucosal Lesions/ Ulcerations Neck: Supple, No JVD, Negative Carotid Bruits, Trachea Midline, Thyroid Normal Size and Texture Lungs: Clear to auscultation, No rhonchi, No wheeze, No rales, Diminished Cardiovascular: Regular rate, Normal S1, Normal S2, PMI Normal Abdomen: Bowel Sounds Present, Soft, Non Tender, Non-Distended, No Hepato-splenomegaly, Obese Extremities: No clubbing, No cyanosis, Edema - Trace edema. Left hip: Swelling and erythema from below left knee down to the left. Skin: No rashes, - - She has 1 small wound which is dry without drainage the left heel, another small wound on the medial aspect of the left foot and it is dry without evidence of drainage. Lymphatic: No Cervical, Supraclavicular, or Inguinal Adenopathy Neurological: Cranial nerves II-XII grossly intact, Motor Exam 5/5 strength throughout Psych/Mental Status: Normal Affect, Appropriate, Alert and oriented to time, place, person, mood and affect Vital Signs Temp Pulse Resp BP Pulse Ox 98.7 F 64 15 117/45 L 96 12/17/17 03:31 12/17/17 03:31 12/17/17 03:31 12/17/17 03:31 12/17/17 03:31 Oxygen Flow Rate (L/min) 2 Oxygen Delivery Method Nasal Cannula Weight: 270 lb 8.115 oz Body Mass Index (BMI) 46.1 Intake and Output for Last 24 Hours 12/15/17 12/16/17 12/17/17 23:59 23:59 23:59 Intake Total 2511 / 2511 652 / 652 Output Total 4900 / 4900 1250 / 1250 Balance -2389 / -2389 -598 / -598 Laboratory Tests Past 24 Hrs 12/16/17 12/17/17 12/17/17 10:03 05:25 05:25 WBC 10.6 RBC 3.71 L Hgb 9.2 L Hct 31.5 L MCV 84.9 MCH 24.8 L MCHC 29.2 L RDW 20.4 H RDW Differential 61.7 H Plt Count 177 MPV 10.4 Immature Gran % (Auto) 0.200 Neut % (Auto) 76.9 H Lymph % (Auto) 14.0 L [place] % (Auto) 8.0 Eos % (Auto) 0.7 Baso % (Auto) 0.2 Absolute Neuts (auto) 8.1 H Absolute Lymphs (auto) 1.48 Total Counted Not Reportable Differential Comment SCANNED Anisocytosis 2+ Sodium 138 Potassium 4.7 4.3 Chloride 102 Carbon Dioxide 30.0 Anion Gap 6 BUN 20 H Creatinine 0.71 Estim Creat Clear Calc 68.21 Est GFR (MDRD) Af Amer 106 Est GFR (MDRD) Non-Af 88 BUN/Creatinine Ratio 28.2 H Glucose 108 H Calcium 8.4 L POC Glucose 12/17/17 12/16/17 12/16/17 06:36 20:56 15:40 POC Glucose 134 H 137 H 136 H 12/16/17 12:22 POC Glucose 156 H Medical Necessity - Tobacco Use Smoking Status: Current every day smoker Assessment/Plan Active and Suspected Problems Left leg cellulitis (Acute) This is a 67 years old female patient presented to the emergency room because of left leg pain, swelling and redness and she was admitted as a case of acute left lower extremity cellulitis and also found to have mild hyperkalemia. #1 acute left lower extremity cellulitis: She is on IV vancomycin and Zosyn. Vital signs are stable, afebrile. White blood cell count is back to normal. X-ray of the left tibia and fibula revealed soft tissue swelling. Blood cultures are pending. She had recent history of left leg cellulitis that was 2 weeks ago, was admitted to [facility] and discharged on antibiotics. venous Doppler of the left leg done on December 15, 2012 at [facility] and showed no DVT, report reviewed. MRSA screen is positive. Plan: Continue same treatment. #2 anemia: It is normocytic anemia. Not clear if this is acute or chronic. Back in February,, hemoglobin was 13.8. Admission hemoglobin was 11.3 and today's hemoglobin is 9.2 g/dL. Patient denies any bleeding. Plan: Serum iron, TIBC, ferritin, B12, RBC folate. #3 hyperkalemia: Admission potassium was 5.5. She was on IV fluids. Today's potassium is 4.3, normalized. #4 CAD status post stents: Denies any chest pain or shortness of breath. Continue aspirin, statins, Coreg, isosorbide mononitrate, lisinopril held. #5 COPD: According to the patient, she was started on home oxygen recently at 2 L. At this time, she denies any worsening shortness of breath. Her pulse ox is 9 6% on 2 L. Chest x-ray reviewed. She is on albuterol every 6 hours and Pulmicort twice daily. #6 type 2 diabetes mellitus: Blood sugar stable, continue ADA diet, Accu-Cheks, metformin, start exercising scale. #7 peripheral diabetic neuropathy: Continue Lyrica and OxyIR as needed. #8 DVT prophylaxis: Subcu heparin. This note was generated with [employer] dictation software. It may contain incorrect words, spelling, and punctuation that were not noted in checking the note before signing. Code Visit Inpatient E&M: 57224 Subs Hosp L2
--- NOTE | 2017-12-17 08:43 | PN_ITS ---
Patient Problems: Active and Suspected Problems Left leg cellulitis (Acute) Subjective: Chief complaint: Follow-up after admission for left lower extremity cellulitis and mild hyperkalemia. Patient seen and examined. No acute events overnight. Pain of the left significantly improved compared to yesterday. Left leg still warm and dry on palpation. Patient denies any chest pain, denies worsening shortness of breath. Her vital signs are stable, afebrile. - Physical Exam General: Alert, Oriented x3, Cooperative, No apparent distress HEENT: Atraumatic, PERRLA, EOMI Oral: Moist Mucosa, No Gingival or Mucosal Lesions/ Ulcerations Neck: Supple, No JVD, Negative Carotid Bruits, Trachea Midline, Thyroid Normal Size and Texture Lungs: Clear to auscultation, No rhonchi, No wheeze, No rales, Diminished Cardiovascular: Regular rate, Normal S1, Normal S2, PMI Normal Abdomen: Bowel Sounds Present, Soft, Non Tender, Non-Distended, No Hepato- splenomegaly, Obese Extremities: No clubbing, No cyanosis, Edema - Trace edema. Left hip: Swelling and erythema from below left knee down to the left. Skin: No rashes, - - She has 1 small wound which is dry without drainage the left heel, another small wound on the medial aspect of the left foot and it is dry without evidence of drainage. Lymphatic: No Cervical, Supraclavicular, or Inguinal Adenopathy Neurological: Cranial nerves II-XII grossly intact, Motor Exam 5/5 strength throughout Psych/Mental Status: Normal Affect, Appropriate, Alert and oriented to time, place, person, mood and affect Vital Signs Temp Pulse Resp BP Pulse Ox 98.7 F 64 15 117/45 L 96 12/17/17 03:31 12/17/17 03:31 12/17/17 03:31 12/17/17 03:31 12/17/17 03:31 Oxygen Flow Rate (L/min) 2 Oxygen Delivery Method Nasal Cannula Weight: 270 lb 8.115 oz Body Mass Index (BMI) 46.1 Intake and Output for Last 24 Hours 12/15/17 12/16/17 12/17/17 23:59 23:59 23:59 Intake Total 2511 / 2511 652 / 652 Output Total 4900 / 4900 1250 / 1250 Balance -2389 / -2389 -598 / -598 Laboratory Tests Past 24 Hrs 12/16/17 12/17/17 12/17/17 10:03 05:25 05:25 WBC 10.6 RBC 3.71 L Hgb 9.2 L Hct 31.5 L MCV 84.9 MCH 24.8 L MCHC 29.2 L RDW 20.4 H RDW Differential 61.7 H Plt Count 177 MPV 10.4 Immature Gran % (Auto) 0.200 Neut % (Auto) 76.9 H Lymph % (Auto) 14.0 L [place] % (Auto) 8.0 Eos % (Auto) 0.7 Baso % (Auto) 0.2 Absolute Neuts (auto) 8.1 H Absolute Lymphs (auto) 1.48 Total Counted Not Reportable Differential Comment SCANNED Anisocytosis 2+ Sodium 138 Potassium 4.7 4.3 Chloride 102 Carbon Dioxide 30.0 Anion Gap 6 BUN 20 H Creatinine 0.71 Estim Creat Clear Calc 68.21 Est GFR (MDRD) Af Amer 106 Est GFR (MDRD) Non-Af 88 BUN/Creatinine Ratio 28.2 H Glucose 108 H Calcium 8.4 L POC Glucose 12/17/17 12/16/17 12/16/17 06:36 20:56 15:40 POC Glucose 134 H 137 H 136 H 12/16/17 12:22 POC Glucose 156 H Medical Necessity - Tobacco Use Smoking Status: Current every day smoker Assessment/Plan Active and Suspected Problems Left leg cellulitis (Acute) This is a 67 years old female patient presented to the emergency room because of left leg pain, swelling and redness and she was admitted as a case of acute left lower extremity cellulitis and also found to have mild hyperkalemia. #1 acute left lower extremity cellulitis: She is on IV vancomycin and Zosyn. Vital signs are stable, afebrile. White blood cell count is back to normal. X- ray of the left tibia and fibula revealed soft tissue swelling. Blood cultures are pending. She had recent history of left leg cellulitis that was 2 weeks ago , was admitted to [facility] and discharged on antibiotics. venous Doppler of the left leg done on December 15, 2012 at [facility] and showed no DVT, report reviewed. MRSA screen is positive. Plan: Continue same treatment. #2 anemia: It is normocytic anemia. Not clear if this is acute or chronic. Back in February,, hemoglobin was 13.8. Admission hemoglobin was 11.3 and today's hemoglobin is 9.2 g/dL. Patient denies any bleeding. Plan: Serum iron , TIBC, ferritin, B12, RBC folate. #3 hyperkalemia: Admission potassium was 5.5. She was on IV fluids. Today's potassium is 4.3, normalized. #4 CAD status post stents: Denies any chest pain or shortness of breath. Continue aspirin, statins, Coreg, isosorbide mononitrate, lisinopril held. #5 COPD: According to the patient, she was started on home oxygen recently at 2 L. At this time, she denies any worsening shortness of breath. Her pulse ox is 9 6% on 2 L. Chest x-ray reviewed. She is on albuterol every 6 hours and Pulmicort twice daily. #6 type 2 diabetes mellitus: Blood sugar stable, continue ADA diet, Accu-Cheks, metformin, start exercising scale. #7 peripheral diabetic neuropathy: Continue Lyrica and OxyIR as needed. #8 DVT prophylaxis: Subcu heparin. This note was generated with [employer] dictation software. It may contain incorrect words, spelling, and punctuation that were not noted in checking the note before signing. Code Visit Inpatient E&M: 72131 Subs Hosp L2
[2017-12-17 09:08] LABS: Ferritin 82 ng/mL (8-252); Iron 26 ug/dL (50-170); Iron Binding Capacity,Total 339 ug/dL (250-450); PERCENT IRON SATURATION 7.7 % (15.0-55.0)
[2017-12-17 09:17] LABS: Vitamin B12 239 pg/mL (211-911)
--- NOTE | 2017-12-17 10:02 | CASEMGMT ---
Social Work Assessment Referral Date: 12/17 Date of Assessment: 12/17 Reason for consult: Initial Assessment Informant: Self-referral SW met with patient to complete initial assessment. SW introduced self and role at [facility]. Pt states that she lives with her and mother in law. Pt states that it is a one story home with 2 steps. Pt states that she was able to complete ADLs independently before coming to [facility]. Pt states that she was working at [employer]. Pt states that she has a walker and cane at home. Pt states that her plan is to return home at discharge. SW will check back in with patient as time allows to discuss possible home health for skilled therapy at home if needed. At this time, PT is recommending further skilled therapy. SW will continue to follow. Substance Abuse HX: Pt states that she has been smoking cigarettes since she was 18 stating that she has COPD. Plan: To go home. Zarina Lucio RECYCLING TECHNICIAN, SPOKE MAKER
[2017-12-17] MEDS: 0.9% NaCl Peripheral Flush Adult/Peds IV (11:21)
[2017-12-17 11:40] LABS: Bedside Glucose 106 mg/dL (70-110)
[2017-12-17 12:03] LABS: Vancomycin, Trough Level 11.1 ug/mL (5.0-15.0)
--- NOTE | 2017-12-17 14:25 | PCM.RX.CS ---
Consult Pharmacy has been consulted to manage selected antiobiotic: Vancomycin Type of Consult: Follow-up Suspected Infection: Skin/Soft tissue Labs: Sodium 138 mmol/L (136-145) 12/17/17 05:25 Potassium 4.3 mmol/L (3.5-5.1) 12/17/17 05:25 Chloride 102 mmol/L (98-107) 12/17/17 05:25 Carbon Dioxide 30.0 mmol/L (21.0-32.0) 12/17/17 05:25 Anion Gap 6 (5-15) 12/17/17 05:25 BUN 20 mg/dL (7-18) H 12/17/17 05:25 Creatinine 0.71 mg/dL (0.55-1.02) 12/17/17 05:25 Est GFR (MDRD) Af Amer 106 mL/min (>60) 12/17/17 05:25 Est GFR (MDRD) Non-Af 88 mL/min (>60) 12/17/17 05:25 BUN/Creatinine Ratio 28.2 RATIO (10-20) H 12/17/17 05:25 Glucose 108 mg/dL (74-106) H 12/17/17 05:25 Vancomycin Trough 11.1 ug/mL (5.0-15.0) 12/17/17 11:16 Weight used for dosin.7 kg Estimated Creatinine Clearance: 68 ML/MIN Goal Trough: 10-15 mcg/mL Pharmacy Plan for Drug Dosing: Pharmacy Service will continue to monitor and adjust dosing as required. The patient had a trough drawn, which resulted in a value of 11.1 (drawn ~11hrs from last dose). Given that the trough goal is 10-15, will continue current dosing regimen. Spoke with the hospitalist, who said that he would like to keep the pt on vancomycin 1 more day, then consider narrowing therapy. PLAN/RECOMMENDATIONS 1. Continue vancomycin 1000 Q12h 2. Will not schedule another trough at this time. Should the patient continue on vancomycin, will schedule another trough when appropriate. 3. Pharmacy will continue to monitor daily
[2017-12-17 17:15] LABS: Bedside Glucose 105 mg/dL (70-110)
--- NOTE | 2017-12-17 22:10 | NURSING ---
Pt refused blood sugar check at this time. Pt states, it's always around the 130's, and I don't need it checked tonight.
[2017-12-17] MEDS: Atorvastatin Calcium 80 MG Tablet PO (22:22)
[2017-12-18] VITALS (12 sets, daily range): BP systolic 102–136; BP diastolic 43–56; PULSE 57–81; RESP 18; TEMP 36.8–37.3; O2SAT 94–96
[2017-12-18] MEDS: oxyCODONE 5 MG Tablet PO ×5 (04:25→21:57)
[2017-12-18 06:12] LABS: Hematocrit 30.4 % (37-47); Hemoglobin 8.8 g/dl (12.0-15.0)
[2017-12-18] MEDS: Piperacil/Tazobactam 3.375 GM/50 ML ML IV ×2 (06:42→13:23)
[2017-12-18 06:56] LABS: Bedside Glucose 104 mg/dL (70-110)
[2017-12-18] MEDS: Budesonide Respules 0.5 MG/2 ML AMPUL.NEB. INHALATION ×2 (07:18→20:26)
[2017-12-18] MEDS: Albuterol 2.5 MG/3 ML VIAL.NEB. INHALATION ×2 (07:18→20:26)
[2017-12-18] MEDS: Carvedilol 6.25 MG Tablet PO ×2 (08:15→21:47)
[2017-12-18] MEDS: Furosemide 40 MG Tablet PO ×2 (08:16→17:15)
[2017-12-18] MEDS: Aspirin E.C. 81 MG Tablet PO (08:16)
[2017-12-18] MEDS: Vitamin B Comp W-C Capsule 1 CAP PO (08:16)
[2017-12-18] MEDS: metFORMIN HCl 1,000 MG Tablet 1000 MG PO (08:16)
[2017-12-18] MEDS: guaiFENesin 1,200 MG Tablet 1200 MG PO ×2 (08:16→21:47)
[2017-12-18] MEDS: Clopidogrel Bisulfate 75 MG Tablet PO (08:16)
[2017-12-18] MEDS: Isosorbide Mononitrate 60 MG Tablet PO (08:16)
[2017-12-18] MEDS: Pregabalin 75 MG Capsule 225 MG PO ×2 (08:19→21:48)
[2017-12-18 12:05] LABS: Bedside Glucose 125 mg/dL (70-110)
--- NOTE | 2017-12-18 13:09 | PCM.PROGNOTE ---
Patient Problems: Active and Suspected Problems Left leg cellulitis (Acute) Objective: She is afebrile, fever subsided. Pain of left distal leg is improving. - Physical Exam General: Alert, Oriented x3, Cooperative HEENT: Atraumatic, PERRLA Oral: Moist Mucosa, No Gingival or Mucosal Lesions/ Ulcerations Neck: Supple, No JVD, Negative Carotid Bruits, Negative Hepatojugular Reflux, No Nodes Lungs: Clear to auscultation, Normal air movement, No rhonchi, No wheeze, No rales Cardiovascular: Regular rate, Regular Rhythm, Normal S1, Normal S2, No murmurs, No Ectopic Activity Abdomen: Bowel Sounds Present, Soft, Non Tender, Non-Distended, Obese Extremities: No clubbing, No cyanosis Skin: - - Erythema of left distal leg above ankle to below knee. Musculoskeletal: No Tenderness to Palpation of Joints or Extremities, No Muscle Wasting Lymphatic: No Cervical, Supraclavicular, or Inguinal Adenopathy Neurological: Cranial nerves II-XII grossly intact, Neuro grossly intact Psych/Mental Status: Normal Affect Vital Signs Temp Pulse Resp BP Pulse Ox 98.4 F 67 18 104/47 L 94 12/18/17 08:10 12/18/17 11:59 12/18/17 08:10 12/18/17 08:10 12/18/17 08:10 Oxygen Flow Rate (L/min) 2 Oxygen Delivery Method Nasal Cannula Weight: 270 lb 8.115 oz Body Mass Index (BMI) 46.1 Intake and Output for Last 24 Hours 12/16/17 12/17/17 12/18/17 23:59 23:59 23:59 Intake Total 2511 / 2511 2309 / 2309 1208 / 1208 Output Total 4900 / 4900 1550 / 1550 Balance -2389 / -2389 759 / 759 1208 / 1208 Laboratory Tests Past 24 Hrs 12/18/17 05:50 Hgb 8.8 L Hct 30.4 L POC Glucose 12/18/17 12/18/17 12/17/17 11:44 06:40 16:55 POC Glucose 125 H 104 105 Diagnostic Data Chest X-Ray 12/15/17 20:15 IMPRESSION: Low lung volume with question of pulmonary vascular prominence and interstitial prominence, query CHF exacerbation in the appropriate clinical setting. Electronically Signed: Mynor Jacinto DO at 20:40 EDT , Service support , Tibia/Fibula X-Ray 12/16/17 08:44 IMPRESSION: Soft tissue swelling Electronically Signed: Irvin Clement MD at 10:09 EDT Tel , Service support , Medical Necessity - Tobacco Use Smoking Status: Current every day smoker Assessment/Plan Active and Suspected Problems Left leg cellulitis (Acute) This is a 67 years old female patient presented with left lower leg cellulitis, admitted on 12/15/17. She was treated for the same problems 2 weeks prior to admission at [facility] main [place], finished course of oral antibiotics but erythema returned. #1 acute left lower extremity cellulitis: Started on Zosyn and vancomycin empirically. Plain film was negative, and ultrasound of leg did not show DVT. MRSA screen is positive. Blood culture is negative to date. Continue current antibiotics. Consult infectious disease for antibiotics recommendation. #2 anemia: It is normocytic anemia. Not clear if this is acute or chronic. Back in February,, hemoglobin was 13.8. Admission hemoglobin was 11.3 and today's hemoglobin is 9.2 g/dL. Patient denies any bleeding. Ferritin normal. IRON 26, which is low, with normal TIBC. Saturation is 7.7%. Finding consistent with iron deficiency anemia. She will need further GI work-up as outpatient. #3 hyperkalemia: Admission potassium was 5.5. She was on IV fluids. Potassium normalized, stable. Monitor BMP. #4 CAD status post stents: Denies any chest pain or shortness of breath. Continue aspirin, statins, Coreg, isosorbide mononitrate, lisinopril held. #5 COPD: According to the patient, she was started on home oxygen recently at 2 L. At this time, she denies any worsening shortness of breath. Her pulse ox is 9 6% on 2 L. Chest x-ray reviewed. She is on albuterol every 6 hours and Pulmicort twice daily. #6 type 2 diabetes mellitus: Blood sugar stable, continue ADA diet. Hold metformin and add insulin sliding scale. #7 peripheral diabetic neuropathy: Continue Lyrica and OxyIR as needed. DVT prophylaxis: Subcu heparin. GI prophylaxis: PPI po. Patient is full code. Disposition: To be determined. Code Visit Inpatient E&M: 09805 Subs Hosp L2
--- NOTE | 2017-12-18 13:20 | PN_ITS ---
Patient Problems: Active and Suspected Problems Left leg cellulitis (Acute) Objective: She is afebrile, fever subsided. Pain of left distal leg is improving. - Physical Exam General: Alert, Oriented x3, Cooperative HEENT: Atraumatic, PERRLA Oral: Moist Mucosa, No Gingival or Mucosal Lesions/ Ulcerations Neck: Supple, No JVD, Negative Carotid Bruits, Negative Hepatojugular Reflux, No Nodes Lungs: Clear to auscultation, Normal air movement, No rhonchi, No wheeze, No rales Cardiovascular: Regular rate, Regular Rhythm, Normal S1, Normal S2, No murmurs, No Ectopic Activity Abdomen: Bowel Sounds Present, Soft, Non Tender, Non-Distended, Obese Extremities: No clubbing, No cyanosis Skin: - - Erythema of left distal leg above ankle to below knee. Musculoskeletal: No Tenderness to Palpation of Joints or Extremities, No Muscle Wasting Lymphatic: No Cervical, Supraclavicular, or Inguinal Adenopathy Neurological: Cranial nerves II-XII grossly intact, Neuro grossly intact Psych/Mental Status: Normal Affect Vital Signs Temp Pulse Resp BP Pulse Ox 98.4 F 67 18 104/47 L 94 12/18/17 08:10 12/18/17 11:59 12/18/17 08:10 12/18/17 08:10 12/18/17 08:10 Oxygen Flow Rate (L/min) 2 Oxygen Delivery Method Nasal Cannula Weight: 270 lb 8.115 oz Body Mass Index (BMI) 46.1 Intake and Output for Last 24 Hours 12/16/17 12/17/17 12/18/17 23:59 23:59 23:59 Intake Total 2511 / 2511 2309 / 2309 1208 / 1208 Output Total 4900 / 4900 1550 / 1550 Balance -2389 / -2389 759 / 759 1208 / 1208 Laboratory Tests Past 24 Hrs 12/18/17 05:50 Hgb 8.8 L Hct 30.4 L POC Glucose 12/18/17 12/18/17 12/17/17 11:44 06:40 16:55 POC Glucose 125 H 104 105 Diagnostic Data Chest X-Ray 12/15/17 20:15 IMPRESSION: Low lung volume with question of pulmonary vascular prominence and interstitial prominence, query CHF exacerbation in the appropriate clinical setting. Electronically Signed: Mynor Jacinto DO at 20:40 EDT , Service support , Tibia/Fibula X-Ray 12/16/17 08:44 IMPRESSION: Soft tissue swelling Electronically Signed: Irvin Clement MD at 10:09 EDT Tel , Service support , Medical Necessity - Tobacco Use Smoking Status: Current every day smoker Assessment/Plan Active and Suspected Problems Left leg cellulitis (Acute) This is a 67 years old female patient presented with left lower leg cellulitis, admitted on 12/15/17. She was treated for the same problems 2 weeks prior to admission at [facility] main [place], finished course of oral antibiotics but erythema returned. #1 acute left lower extremity cellulitis: Started on Zosyn and vancomycin empirically. Plain film was negative, and ultrasound of leg did not show DVT. MRSA screen is positive. Blood culture is negative to date. Continue current antibiotics. Consult infectious disease for antibiotics recommendation. #2 anemia: It is normocytic anemia. Not clear if this is acute or chronic. Back in February,, hemoglobin was 13.8. Admission hemoglobin was 11.3 and today's hemoglobin is 9.2 g/dL. Patient denies any bleeding. Ferritin normal. IRON 26, which is low, with normal TIBC. Saturation is 7.7%. Finding consistent with iron deficiency anemia. She will need further GI work-up as outpatient. #3 hyperkalemia: Admission potassium was 5.5. She was on IV fluids. Potassium normalized, stable. Monitor BMP. #4 CAD status post stents: Denies any chest pain or shortness of breath. Continue aspirin, statins, Coreg, isosorbide mononitrate, lisinopril held. #5 COPD: According to the patient, she was started on home oxygen recently at 2 L. At this time, she denies any worsening shortness of breath. Her pulse ox is 9 6% on 2 L. Chest x-ray reviewed. She is on albuterol every 6 hours and Pulmicort twice daily. #6 type 2 diabetes mellitus: Blood sugar stable, continue ADA diet. Hold metformin and add insulin sliding scale. #7 peripheral diabetic neuropathy: Continue Lyrica and OxyIR as needed. DVT prophylaxis: Subcu heparin. GI prophylaxis: PPI po. Patient is full code. Disposition: To be determined. Code Visit Inpatient E&M: 38279 Subs Hosp L2
--- NOTE | 2017-12-18 15:45 | PCM.HP.ID ---
Problem List (1) Left leg cellulitis Status: Acute Reason for Consult: cellulitis Consulted by: Dr. Roberto History of Present Illness: The patient is a 67 year old F with h/o DM and CHF who presented to ED 12/15 with a month of RLE swelling, redness, pain, and clear drainage. Developed blister over L big toe which turned into shallow ulcer, and also was scratched on calf by her dog. During the past month was seen by PCP, seen by ED here 11/22/17, seen by [facility] and sent to [place] [facility] then transferred to [facility] for three day stay for iv abx and then 7 days of po bid abx which helped redness, but then sx returned. Denies fever or chills during any of this time. Came to ED here, given ceftriaxone x1, then on vanc/zosyn since then. Leg better, fever resolved. Full ROS performed and neg except as noted above. - Medical History Past Medical History (Chronic Problems): Chronic Problems Coronary artery disease (Chronic) Status post stents Hypertension (Chronic) COPD (chronic obstructive pulmonary disease) (Chronic) Neuropathy, diabetic (Chronic) Type 2 diabetes mellitus (Chronic) Allergies/Adverse Reactions: Allergies diltiazem HCl [From Cardizem] Adverse Reaction (Mild, Verified 11/22/17 14:17) Swelling Home Medications: Ambulatory Orders Medication Instructions Recorded Aspirin E.C. [Ecotrin] 81 mg PO DAILY 09/07/14 Isosorbide Mononitrate [Isosorbide 60 mg PO DAILY 09/07/14 Mononitrate ER] Lisinopril [Zestril] 20 mg PO DAILY 09/07/14 Metformin HCl [Glucophage] 1,000 mg PO BIDCM 09/07/14 Atorvastatin Calcium [Lipitor] 80 mg PO QHS 03/19/16 Clopidogrel Bisulfate [Plavix] 75 mg PO DAILY 03/19/16 Oxycodone HCl/Acetaminophen 2 tablet PO Q6H PRN PRN 03/19/16 [Percocet 7.5-325 mg Tablet] Pregabalin [Lyrica] 225 mg PO BID 03/19/16 Budesonide/Formoterol 160/4.5 2 puff INHALATION BID 12/15/17 [Symbicort 160/4.5 Mcg Inhaler (SP)] Carvedilol [Coreg (Beta Adriana)] 6.25 mg PO BID 12/15/17 Furosemide [Lasix] 40 mg PO BID 12/15/17 - Social History SMOKING STATUS:: Current every day smoker Vital Signs Temp Pulse Resp BP Pulse Ox 98.4 F 67 18 104/47 L 94 12/18/17 08:10 12/18/17 11:59 12/18/17 08:10 12/18/17 08:10 12/18/17 08:10 Oxygen Flow Rate (L/min) 2 Oxygen Delivery Method Nasal Cannula Weight: 122.7 kg Body Mass Index (BMI) 46.1 Laboratory Tests Past 24 Hrs 12/18/17 05:50 Hgb 8.8 L Hct 30.4 L - Other Studies Radiology: [] reviewed Other Studies: [] Route of nutrition/ use of supplements: [] Nutritional Intake: [] IV Site: [] Snow Catheter: [] - Physical Exam General: Alert, Oriented x3, Cooperative, No apparent distress HEENT: Atraumatic, PERRLA, EOMI Neck: Supple, No Nodes Lungs: Clear to auscultation, Normal air movement Cardiovascular: Regular rate, Regular Rhythm Abdomen: Bowel Sounds Present, Soft, Non Tender, Non-Distended Extremities: Edema Skin: Ulcer/ Wound - L calf wound, L MTP shallow ulcer. Calf/streeter with diffuse redness and warmth. IV Site: Peripheral, without redness Musculoskeletal: No Tenderness to Palpation of Joints or Extremities Neurological: Cranial nerves II-XII grossly intact - Assessment/Plan Antibiotics: [] Assessment/Plan: [] Active and Suspected Problems Left leg cellulitis (Acute) sepsis (fever, leukocytosis) due to LLE cellulitis - improving. MSSA pcr (+), MRSA neg. Leg less red. Had scratch from her dog on calf. Will narrow abx to cefazolin and po flagyl to cover for strep, MSSA, and anaerobes. Thank you, will follow.
[2017-12-18 16:10] LABS: Folate, Hemolysate Test 435.2 ng/mL (Not Estab.)
[2017-12-18] MEDS: metroNIDAZOLE 500 MG Tablet PO (17:15)
[2017-12-18] MEDS: Cefazolin 2 GM in 0.9% Normal Saline 100 ML IV (21:47)
[2017-12-18] MEDS: Atorvastatin Calcium 80 MG Tablet PO (21:47)
[2017-12-18 22:41] LABS: Bedside Glucose 135 mg/dL (70-110)
[2017-12-18] MEDS: Morphine 2 MG/ML Syringe IV (23:18)
[2017-12-19] VITALS (13 sets, daily range): BP systolic 99–129; BP diastolic 32–53; PULSE 54–80; RESP 16–20; TEMP 36.5–37; O2SAT 92–98
[2017-12-19] MEDS: oxyCODONE 5 MG Tablet PO ×5 (02:19→21:18)
[2017-12-19] MEDS: Cefazolin 2 GM in 0.9% Normal Saline 100 ML IV ×3 (05:06→21:12)
[2017-12-19] MEDS: Albuterol 2.5 MG/3 ML VIAL.NEB. INHALATION ×3 (07:07→19:48)
[2017-12-19] MEDS: Budesonide Respules 0.5 MG/2 ML AMPUL.NEB. INHALATION ×2 (07:07→19:47)
[2017-12-19 07:20] LABS: Bedside Glucose 107 mg/dL (70-110)
[2017-12-19] MEDS: metroNIDAZOLE 500 MG Tablet PO ×3 (07:46→16:29)
[2017-12-19] MEDS: Aspirin E.C. 81 MG Tablet PO (07:46)
[2017-12-19] MEDS: Vitamin B Comp W-C Capsule 1 CAP PO (09:14)
[2017-12-19] MEDS: Pantoprazole Sodium 20 MG Tablet PO (09:15)
[2017-12-19] MEDS: Furosemide 40 MG Tablet PO ×2 (09:15→16:30)
[2017-12-19] MEDS: Clopidogrel Bisulfate 75 MG Tablet PO (09:15)
[2017-12-19] MEDS: guaiFENesin 1,200 MG Tablet 1200 MG PO ×2 (09:15→21:12)
[2017-12-19] MEDS: Pregabalin 75 MG Capsule 225 MG PO ×2 (09:20→21:18)
--- NOTE | 2017-12-19 09:24 | PCM.PROGNOTE ---
Patient Problems: Active and Suspected Problems Left leg cellulitis (Acute) Subjective: She feels well this morning. Leg pain has improved. T-max 99.2 past 24 hours. No chest pain, dyspnea, dizziness, or cough. - Physical Exam General: Alert, Oriented x3, Cooperative HEENT: Atraumatic, PERRLA Oral: Moist Mucosa, No Gingival or Mucosal Lesions/ Ulcerations Neck: Supple, No JVD, Negative Carotid Bruits, Negative Hepatojugular Reflux, No Nodes Lungs: Clear to auscultation, Normal air movement, No rhonchi, No wheeze, No rales Cardiovascular: Regular rate, Regular Rhythm, Normal S1, Normal S2, No murmurs, No Ectopic Activity Abdomen: Bowel Sounds Present, Soft, Non Tender, Non-Distended, Obese Extremities: No clubbing, No cyanosis Skin: - - Erythema of left distal leg has subsided. Chronic skin change from recurrent edema / mild stasis dermatitis. Musculoskeletal: No Tenderness to Palpation of Joints or Extremities, No Muscle Wasting Lymphatic: No Cervical, Supraclavicular, or Inguinal Adenopathy Neurological: Cranial nerves II-XII grossly intact, Neuro grossly intact Psych/Mental Status: Normal Affect - Physical Exam Vital Signs Temp Pulse Resp BP Pulse Ox 97.7 F L 59 L 20 H 99/32 L 98 12/19/17 07:41 12/19/17 07:41 12/19/17 07:41 12/19/17 07:41 12/19/17 07:41 Oxygen Flow Rate (L/min) 2 Oxygen Delivery Method Nasal Cannula Weight: 270 lb 8.115 oz Body Mass Index (BMI) 46.1 Intake and Output for Last 24 Hours 12/17/17 12/18/17 12/19/17 23:59 23:59 23:59 Intake Total 2309 / 2309 2082 / 2082 1057 / 1057 Output Total 1550 / 1550 Balance 759 / 759 2082 / 2082 1057 / 1057 POC Glucose 12/19/17 12/18/17 12/18/17 06:51 21:46 11:44 POC Glucose 107 135 H 125 H Diagnostic Data Chest X-Ray 12/15/17 20:15 IMPRESSION: Low lung volume with question of pulmonary vascular prominence and interstitial prominence, query CHF exacerbation in the appropriate clinical setting. Electronically Signed: Mynor Jacinto DO at 20:40 EDT , Service support , Tibia/Fibula X-Ray 12/16/17 08:44 IMPRESSION: Soft tissue swelling Electronically Signed: Irvin Clement MD at 10:09 EDT Tel , Service support , Medical Necessity - Tobacco Use Smoking Status: Current every day smoker Tobacco Use: Cigarettes Assessment/Plan Active and Suspected Problems Left leg cellulitis (Acute) This is a 67 years old female patient presented with left lower leg cellulitis, admitted on 12/15/17. She was treated for the same problems 2 weeks prior to admission at [facility] main [place], finished course of oral antibiotics but erythema returned. #1 acute left lower extremity cellulitis: Started on Zosyn and vancomycin empirically. Plain film was negative, and ultrasound of leg did not show DVT. MRSA pcr negative. Blood culture is negative to date. Continue current antibiotics. Appreciate ID consultation. Antibiotics changed to Cefazolin, metronidazole po. #2 anemia, normocytic anemia. Not clear if this is acute or chronic. Back in February,, hemoglobin was 13.8. Hgb on admission 11.3, trending down to 8.8. Most of the reduction is due to hemodilution. Ferritin normal. IRON 26, which is low, with normal TIBC. Saturation is 7.7%. Finding consistent with iron deficiency anemia. Check Hemoccult. She will need further GI work-up as outpatient. #3 hyperkalemia: Admission potassium was 5.5. She was on IV fluids. Potassium normalized, stable. Monitor BMP. #4 CAD status post stents: Denies any chest pain or shortness of breath. Continue aspirin, statins, Coreg, isosorbide mononitrate, lisinopril held. #5 COPD: According to the patient, she was started on home oxygen recently at 2 L. At this time, she denies any worsening shortness of breath. Her pulse ox is 9 6% on 2 L. Chest x-ray reviewed. She is on albuterol every 6 hours and Pulmicort twice daily. #6 type 2 diabetes mellitus: Blood sugar stable, continue ADA diet. Hold metformin and add insulin sliding scale. #7 peripheral diabetic neuropathy: Continue Lyrica and OxyIR as needed. #8 Chronic hypoxic respiratory failure. She has home oxygen for chronic oxygen use. DVT prophylaxis: Subcu heparin. GI prophylaxis: PPI po. Patient is full code. Disposition: Home in 1 to 2 days, +/- home care. PT/OT. Code Visit Inpatient E&M: 51847 Subs Hosp L2
--- NOTE | 2017-12-19 09:33 | PN_ITS ---
Patient Problems: Active and Suspected Problems Left leg cellulitis (Acute) Subjective: She feels well this morning. Leg pain has improved. T-max 99.2 past 24 hours. No chest pain, dyspnea, dizziness, or cough. - Physical Exam General: Alert, Oriented x3, Cooperative HEENT: Atraumatic, PERRLA Oral: Moist Mucosa, No Gingival or Mucosal Lesions/ Ulcerations Neck: Supple, No JVD, Negative Carotid Bruits, Negative Hepatojugular Reflux, No Nodes Lungs: Clear to auscultation, Normal air movement, No rhonchi, No wheeze, No rales Cardiovascular: Regular rate, Regular Rhythm, Normal S1, Normal S2, No murmurs, No Ectopic Activity Abdomen: Bowel Sounds Present, Soft, Non Tender, Non-Distended, Obese Extremities: No clubbing, No cyanosis Skin: - - Erythema of left distal leg has subsided. Chronic skin change from recurrent edema / mild stasis dermatitis. Musculoskeletal: No Tenderness to Palpation of Joints or Extremities, No Muscle Wasting Lymphatic: No Cervical, Supraclavicular, or Inguinal Adenopathy Neurological: Cranial nerves II-XII grossly intact, Neuro grossly intact Psych/Mental Status: Normal Affect - Physical Exam Vital Signs Temp Pulse Resp BP Pulse Ox 97.7 F L 59 L 20 H 99/32 L 98 12/19/17 07:41 12/19/17 07:41 12/19/17 07:41 12/19/17 07:41 12/19/17 07:41 Oxygen Flow Rate (L/min) 2 Oxygen Delivery Method Nasal Cannula Weight: 270 lb 8.115 oz Body Mass Index (BMI) 46.1 Intake and Output for Last 24 Hours 12/17/17 12/18/17 12/19/17 23:59 23:59 23:59 Intake Total 2309 / 2309 2082 / 2082 1057 / 1057 Output Total 1550 / 1550 Balance 759 / 759 2082 / 2082 1057 / 1057 POC Glucose 12/19/17 12/18/17 12/18/17 06:51 21:46 11:44 POC Glucose 107 135 H 125 H Diagnostic Data Chest X-Ray 12/15/17 20:15 IMPRESSION: Low lung volume with question of pulmonary vascular prominence and interstitial prominence, query CHF exacerbation in the appropriate clinical setting. Electronically Signed: Mynor Jacinto DO at 20:40 EDT , Service support , Tibia/Fibula X-Ray 12/16/17 08:44 IMPRESSION: Soft tissue swelling Electronically Signed: Irvin Clement MD at 10:09 EDT Tel , Service support , Medical Necessity - Tobacco Use Smoking Status: Current every day smoker Tobacco Use: Cigarettes Assessment/Plan Active and Suspected Problems Left leg cellulitis (Acute) This is a 67 years old female patient presented with left lower leg cellulitis, admitted on 12/15/17. She was treated for the same problems 2 weeks prior to admission at [facility] main [place], finished course of oral antibiotics but erythema returned. #1 acute left lower extremity cellulitis: Started on Zosyn and vancomycin empirically. Plain film was negative, and ultrasound of leg did not show DVT. MRSA pcr negative. Blood culture is negative to date. Continue current antibiotics. Appreciate ID consultation. Antibiotics changed to Cefazolin, metronidazole po. #2 anemia, normocytic anemia. Not clear if this is acute or chronic. Back in February,, hemoglobin was 13.8. Hgb on admission 11.3, trending down to 8.8. Most of the reduction is due to hemodilution. Ferritin normal. IRON 26, which is low, with normal TIBC. Saturation is 7.7%. Finding consistent with iron deficiency anemia. Check Hemoccult. She will need further GI work-up as outpatient. #3 hyperkalemia: Admission potassium was 5.5. She was on IV fluids. Potassium normalized, stable. Monitor BMP. #4 CAD status post stents: Denies any chest pain or shortness of breath. Continue aspirin, statins, Coreg, isosorbide mononitrate, lisinopril held. #5 COPD: According to the patient, she was started on home oxygen recently at 2 L. At this time, she denies any worsening shortness of breath. Her pulse ox is 9 6% on 2 L. Chest x-ray reviewed. She is on albuterol every 6 hours and Pulmicort twice daily. #6 type 2 diabetes mellitus: Blood sugar stable, continue ADA diet. Hold metformin and add insulin sliding scale. #7 peripheral diabetic neuropathy: Continue Lyrica and OxyIR as needed. #8 Chronic hypoxic respiratory failure. She has home oxygen for chronic oxygen use. DVT prophylaxis: Subcu heparin. GI prophylaxis: PPI po. Patient is full code. Disposition: Home in 1 to 2 days, +/- home care. PT/OT. Code Visit Inpatient E&M: 82053 Subs Hosp L2
[2017-12-19 11:21] LABS: Folates, RBC Test 1360 ng/mL (>498)
[2017-12-19 11:30] LABS: Bedside Glucose 157 mg/dL (70-110)
[2017-12-19 11:35] LABS: Bedside Glucose 121 mg/dL (70-110)
--- NOTE | 2017-12-19 15:26 | CASEMGMT ---
[facility] discussed discharge needs with patient. Patient denies need for additional DME and states she has home oxygen set up with portability. Patient states that she only wants HHC if patient will need to go home with IV ATB. [facility] will continue to follow this patient and monitor need for HHC and IV ATBs.
[2017-12-19 16:11] LABS: Bedside Glucose 107 mg/dL (70-110)
[2017-12-19] MEDS: Atorvastatin Calcium 80 MG Tablet PO (21:12)
[2017-12-19] MEDS: Carvedilol 6.25 MG Tablet PO (21:12)
[2017-12-19 21:30] LABS: Bedside Glucose 139 mg/dL (70-110)
[2017-12-19] MEDS: Morphine 2 MG/ML Syringe IV (22:26)
[2017-12-20] VITALS (10 sets, daily range): BP systolic 109–134; BP diastolic 51–71; PULSE 57–67; RESP 16–20; TEMP 36.4–36.7; O2SAT 95–97
[2017-12-20 05:14] LABS: Hemoglobin 9.4 g/dl (12.0-15.0); Mean Corp Hgb Conc 29.4 g/gl (32-36); Mean Corpuscular Hgb 25.2 pg (27.0-32.0); Mean Corpuscular Volume 85.8 fL (81-99); Mean Platelet Vol. 10.5 fl (6.2-12.0); Platelet Count 185 K/mm3 (150-450); RBC Distribution Width SD 61.1 fl (35.1-43.9); Red Blood Count 3.73 M/mm3 (4.2-5.4); White Blood Count 6.7 K/mm3 (4.4-11.0)
[2017-12-20] MEDS: Cefazolin 2 GM in 0.9% Normal Saline 100 ML IV ×2 (05:16→13:50)
[2017-12-20 05:17] LABS: Scan Indicated on CBC? Y/N NO
[2017-12-20 05:27] LABS: Anion Gap 5 (5-15); BUN 24 mg/dL (7-18); BUN/Creat Ratio 33.4 RATIO (10-20); Calcium,Total 8.2 mg/dL (8.5-10.1); Chloride 101 mmol/L (98-107); Creatinine, Serum 0.72 mg/dL (0.55-1.02); EST Glomerular Filtration Rate 87 mL/min (>60); Est Glom Filt Rate - Afr Amer 105 mL/min (>60); Estimated Creatinine Clearance 67.27 ml/min; Glucose 100 mg/dL (74-106); Potassium 4.2 mmol/L (3.5-5.1); Sodium Level 137 mmol/L (136-145)
[2017-12-20] MEDS: oxyCODONE 5 MG Tablet PO ×3 (06:25→17:19)
[2017-12-20 06:56] LABS: Bedside Glucose 104 mg/dL (70-110)
[2017-12-20] MEDS: Albuterol 2.5 MG/3 ML VIAL.NEB. INHALATION ×2 (07:17→12:24)
[2017-12-20] MEDS: Budesonide Respules 0.5 MG/2 ML AMPUL.NEB. INHALATION (07:17)
[2017-12-20] MEDS: Vitamin B Comp W-C Capsule 1 CAP PO (09:05)
[2017-12-20] MEDS: metroNIDAZOLE 500 MG Tablet PO ×2 (09:05→12:34)
[2017-12-20] MEDS: Aspirin E.C. 81 MG Tablet PO (09:05)
[2017-12-20] MEDS: Isosorbide Mononitrate 60 MG Tablet PO (09:06)
[2017-12-20] MEDS: Pantoprazole Sodium 20 MG Tablet PO (09:06)
[2017-12-20] MEDS: Carvedilol 6.25 MG Tablet PO (09:06)
[2017-12-20] MEDS: Furosemide 40 MG Tablet PO (09:06)
[2017-12-20] MEDS: Clopidogrel Bisulfate 75 MG Tablet PO (09:06)
[2017-12-20] MEDS: guaiFENesin 1,200 MG Tablet 1200 MG PO (09:06)
[2017-12-20] MEDS: Pregabalin 75 MG Capsule 225 MG PO (09:08)
--- NOTE | 2017-12-20 09:32 | PCM.PN.ID ---
Patient Problems: Active and Suspected Problems Left leg cellulitis (Acute) Subjective: Feeling better, no fever, no n/v/d. Leg less sore, swollen, and red. - Physical Exam General: Alert, Cooperative Lungs: Clear to auscultation, Normal air movement Cardiovascular: Regular rate, Regular Rhythm Abdomen: Soft, Non Tender, Non-Distended Extremities: Edema Skin: Rash Present - fading L streeter redness Vital Signs Temp Pulse Resp BP Pulse Ox 98.1 F 57 L 20 H 122/70 H 95 12/20/17 08:00 12/20/17 08:52 12/20/17 08:06 12/20/17 08:00 12/20/17 08:00 Oxygen Flow Rate (L/min) 2 Oxygen Delivery Method Nasal Cannula Weight: 122.7 kg Body Mass Index (BMI) 46.1 Intake and Output for Last 24 Hours 12/18/17 12/19/17 12/20/17 23:59 23:59 23:59 Intake Total 2082 2965 / 2965 465 / 465 Balance 2082 2965 / 2965 465 / 465 Laboratory Tests Past 24 Hrs 12/17/17 12/20/17 12/20/17 11:16 05:05 05:05 WBC 6.7 RBC 3.73 L Hgb 9.4 L Hct 32.0 L MCV 85.8 MCH 25.2 L MCHC 29.4 L RDW 20.0 H RDW Differential 61.1 H Plt Count 185 MPV 10.5 Sodium 137 Potassium 4.2 Chloride 101 Carbon Dioxide 31.0 Anion Gap 5 BUN 24 H Creatinine 0.72 Estim Creat Clear Calc 67.27 Est GFR (MDRD) Af Amer 105 Est GFR (MDRD) Non-Af 87 BUN/Creatinine Ratio 33.4 H Glucose 100 Calcium 8.2 L RBC Folate Hemolysate 435.2 RBC Folate 1360 Hematocrit 32.0 L POC Glucose 12/20/17 12/19/17 12/19/17 06:52 21:23 15:58 POC Glucose 104 139 H 107 12/19/17 12/18/17 11:00 16:36 POC Glucose 157 H 121 H Medical Necessity - Tobacco Use Smoking Status: Current every day smoker Tobacco Use: Cigarettes Route of nutrition/ use of supplements: [] Nutritional Intake: [] IV Site: [] Snow Catheter: [] - Assessment/Plan Antibiotics: [] Assessment/Plan: [] Active and Suspected Problems Left leg cellulitis (Acute) sepsis (fever, leukocytosis) due to LLE cellulitis - improving. MSSA pcr (+), MRSA neg. Had scratch from her dog on calf. Leg much less red on cefazolin and flagyl. Plan will be for d/c home on po keflex 500mg tid and po flagyl 500mg tid for 10 more days. will follow.
[2017-12-20 11:46] LABS: Bedside Glucose 189 mg/dL (70-110)
--- NOTE | 2017-12-20 16:17 | DCINST_ITS ---
- Discharge Diagnoses Current Active Problems: Current Active and Chronic Problems Left leg cellulitis (Acute) You will use the following diet at home:: Calorie/Carbohydrate Controlled ( specify 1200, 1400, etc) - 1800 naresh diet, Cardiac Allergies/Adverse Reactions: Allergies diltiazem HCl [From Cardizem] Adverse Reaction (Mild, Verified 11/22/17 14:17) Swelling Medications to take at Discharge Aspirin E.C. [Ecotrin] 81 mg PO DAILY 09/07/14 Isosorbide Mononitrate [Isosorbide Mononitrate ER] 60 mg PO DAILY 09/07/14 Lisinopril [Zestril] 20 mg PO DAILY 09/07/14 Metformin HCl [Glucophage] 1,000 mg PO BIDCM 09/07/14 Atorvastatin Calcium [Lipitor] 80 mg PO QHS 03/19/16 Clopidogrel Bisulfate [Plavix] 75 mg PO DAILY 03/19/16 Oxycodone HCl/Acetaminophen [Percocet 7.5-325 mg Tablet] 2 tablet PO Q6H PRN PRN 03/19/16 Pregabalin [Lyrica] 225 mg PO BID 03/19/16 Budesonide/Formoterol 160/4.5 [Symbicort 160/4.5 Mcg Inhaler (SP)] 2 puff INHALATION BID 12/15/17 Carvedilol [Coreg (Beta Adriana)] 6.25 mg PO BID 12/15/17 Furosemide [Lasix] 40 mg PO BID 12/15/17 Cephalexin [Keflex] 500 mg PO TID #30 cap 12/20/17 Metronidazole [Flagyl] 500 mg PO TIDCM #30 tab 12/20/17 The following prescriptions were given: Cephalexin [Keflex] 500 mg PO TID #30 cap Metronidazole [Flagyl] 500 mg PO TIDCM #30 tab Primary Care Physician: Dale Vivar DO [Primary Care Provider] - Please follow up with your Primary Care Physician in: 5 to 7 days. Please Follow Up With: Titi Pena MD When: in 2 weeks.
--- NOTE | 2017-12-20 16:18 | PCM.DC.SUM ---
Discharge Date and Diagnosis - Problem List Patient Problems: Active and Suspected Problems Left leg cellulitis (Acute) Date of Admission: 12/15/17 Date of Discharge: 12/20/17 - Primary Discharge Diagnosis Active and Suspected Problems Left leg cellulitis (Acute) - Secondary Discharge Diagnosis Chronic Problems Coronary artery disease (Chronic) Status post stents Hypertension (Chronic) COPD (chronic obstructive pulmonary disease) (Chronic) Neuropathy, diabetic (Chronic) Type 2 diabetes mellitus (Chronic) Hospital Course and Treatment Imaging Results: Diagnostic Data Chest X-Ray 12/15/17 20:15 IMPRESSION: Low lung volume with question of pulmonary vascular prominence and interstitial prominence, query CHF exacerbation in the appropriate clinical setting. Electronically Signed: Mynor Jacinto DO at 20:40 EDT , Service support , Tibia/Fibula X-Ray 12/16/17 08:44 IMPRESSION: Soft tissue swelling Electronically Signed: Irvin Clement MD at 10:09 EDT Tel , Service support , MAGNETIC TAPE COMPOSER OPERATOR: Dr. Pena, infectious disease. Operations: None Procedures: None Summary of Care Provided: This is a 67 years old female patient presented with left lower leg cellulitis, admitted on 12/15/17. She was treated for the same problems 2 weeks prior to admission at [facility], finished course of oral antibiotics but erythema returned. ON the day of discharge, she is afebrile and WBC is normal. Erythema of the leg receded. #1 acute left lower extremity cellulitis: Started on Zosyn and vancomycin empirically. Plain film was negative, and ultrasound of leg did not show DVT. MRSA pcr negative. Blood culture is negative to date. ID consultation appreciated. Antibiotics changed to Cefazolin, metronidazole po (12/19). Plan to discharge with Keflex 500 mg po tid for 10 days, and Flagyl 500 mg po tid for 10 days. Follow up with ID in 2 weeks. #2 anemia, normocytic anemia. Not clear if this is acute or chronic. Back in February,, hemoglobin was 13.8. Hgb on admission 11.3, trending down to 8.8. Most of the reduction is due to hemodilution. Ferritin normal. IRON 26, which is low, with normal TIBC. Saturation is 7.7%. Finding consistent with iron deficiency anemia. Check Hemoccult. She will need further GI work-up as outpatient. #3 hyperkalemia: Admission potassium was 5.5. She was on IV fluids. Potassium normalized, stable. #4 CAD status post stents: Denies any chest pain or shortness of breath. Continue aspirin, statins, Coreg, isosorbide mononitrate, lisinopril held. #5 COPD: According to the patient, she was started on home oxygen recently at 2 L. At this time, she denies any worsening shortness of breath. Her pulse ox is 9 6% on 2 L. Chest x-ray reviewed. Resume home regimen. Encourage cessation of smoking. #6 type 2 diabetes mellitus: Blood sugar stable, continue ADA diet. Hold metformin and add insulin sliding scale. #7 peripheral diabetic neuropathy: Continue Lyrica and OxyIR as needed. #8 Chronic hypoxic respiratory failure. She has home oxygen for chronic oxygen use. Patient is full code. Disposition: Home. Discharge Diet: 1800 Calorie Control Diet, - - Cardiac Discharge Activity: Return to Normal Activity Home Medications: Medications to take at Discharge Aspirin E.C. [Ecotrin] 81 mg PO DAILY 09/07/14 Isosorbide Mononitrate [Isosorbide Mononitrate ER] 60 mg PO DAILY 09/07/14 Lisinopril [Zestril] 20 mg PO DAILY 09/07/14 Metformin HCl [Glucophage] 1,000 mg PO BIDCM 09/07/14 Atorvastatin Calcium [Lipitor] 80 mg PO QHS 03/19/16 Clopidogrel Bisulfate [Plavix] 75 mg PO DAILY 03/19/16 Oxycodone HCl/Acetaminophen [Percocet 7.5-325 mg Tablet] 2 tablet PO Q6H PRN PRN 03/19/16 Pregabalin [Lyrica] 225 mg PO BID 03/19/16 Budesonide/Formoterol 160/4.5 [Symbicort 160/4.5 Mcg Inhaler (SP)] 2 puff INHALATION BID 12/15/17 Carvedilol [Coreg (Beta Adriana)] 6.25 mg PO BID 12/15/17 Furosemide [Lasix] 40 mg PO BID 12/15/17 Cephalexin [Keflex] 500 mg PO TID #30 cap 12/20/17 Metronidazole [Flagyl] 500 mg PO TIDCM #30 tab 12/20/17 Following Prescrptions Were Given to Patient: Cephalexin [Keflex] 500 mg PO TID #30 cap Metronidazole [Flagyl] 500 mg PO TIDCM #30 tab Primary Care Physician: Dale Vivar DO [Primary Care Provider] - Please follow up with your Primary Care Physician in: 5 to 7 days. Please Follow Up With: Titi Pena MD When: in 2 weeks. Disposition: Home Patient Condition:: Good Medical Necessity - Tobacco Use Smoking Status: Current every day smoker Tobacco Use: Cigarettes Meaningful Use Info Meaningful Use Diagnoses (Choose all that apply): None applicable Code Visit Inpatient E&M: 56390 Disch Hosp
--- NOTE | 2017-12-20 16:24 | DS.PCM_ITS ---
Discharge Date and Diagnosis - Problem List Patient Problems: Active and Suspected Problems Left leg cellulitis (Acute) Date of Admission: 12/15/17 Date of Discharge: 12/20/17 - Primary Discharge Diagnosis Active and Suspected Problems Left leg cellulitis (Acute) - Secondary Discharge Diagnosis Chronic Problems Coronary artery disease (Chronic) Status post stents Hypertension (Chronic) COPD (chronic obstructive pulmonary disease) (Chronic) Neuropathy, diabetic (Chronic) Type 2 diabetes mellitus (Chronic) Hospital Course and Treatment Imaging Results: Diagnostic Data Chest X-Ray 12/15/17 20:15 IMPRESSION: Low lung volume with question of pulmonary vascular prominence and interstitial prominence, query CHF exacerbation in the appropriate clinical setting. Electronically Signed: Mynor Jacinto DO at 20:40 EDT , Service support , Tibia/Fibula X-Ray 12/16/17 08:44 IMPRESSION: Soft tissue swelling Electronically Signed: Irvin Clement MD at 10:09 EDT Tel , Service support , EXECUTIVE ADMINISTRATOR: Dr. Pena, infectious disease. Operations: None Procedures: None Summary of Care Provided: This is a 67 years old female patient presented with left lower leg cellulitis, admitted on 12/15/17. She was treated for the same problems 2 weeks prior to admission at [facility], finished course of oral antibiotics but erythema returned. ON the day of discharge, she is afebrile and WBC is normal. Erythema of the leg receded. #1 acute left lower extremity cellulitis: Started on Zosyn and vancomycin empirically. Plain film was negative, and ultrasound of leg did not show DVT. MRSA pcr negative. Blood culture is negative to date. ID consultation appreciated. Antibiotics changed to Cefazolin, metronidazole po (12/19). Plan to discharge with Keflex 500 mg po tid for 10 days, and Flagyl 500 mg po tid for 10 days. Follow up with ID in 2 weeks. #2 anemia, normocytic anemia. Not clear if this is acute or chronic. Back in February,, hemoglobin was 13.8. Hgb on admission 11.3, trending down to 8.8. Most of the reduction is due to hemodilution. Ferritin normal. IRON 26, which is low, with normal TIBC. Saturation is 7.7%. Finding consistent with iron deficiency anemia. Check Hemoccult. She will need further GI work-up as outpatient. #3 hyperkalemia: Admission potassium was 5.5. She was on IV fluids. Potassium normalized, stable. #4 CAD status post stents: Denies any chest pain or shortness of breath. Continue aspirin, statins, Coreg, isosorbide mononitrate, lisinopril held. #5 COPD: According to the patient, she was started on home oxygen recently at 2 L. At this time, she denies any worsening shortness of breath. Her pulse ox is 9 6% on 2 L. Chest x-ray reviewed. Resume home regimen. Encourage cessation of smoking. #6 type 2 diabetes mellitus: Blood sugar stable, continue ADA diet. Hold metformin and add insulin sliding scale. #7 peripheral diabetic neuropathy: Continue Lyrica and OxyIR as needed. #8 Chronic hypoxic respiratory failure. She has home oxygen for chronic oxygen use. Patient is full code. Disposition: Home. Discharge Diet: 1800 Calorie Control Diet, - - Cardiac Discharge Activity: Return to Normal Activity Home Medications: Medications to take at Discharge Aspirin E.C. [Ecotrin] 81 mg PO DAILY 09/07/14 Isosorbide Mononitrate [Isosorbide Mononitrate ER] 60 mg PO DAILY 09/07/14 Lisinopril [Zestril] 20 mg PO DAILY 09/07/14 Metformin HCl [Glucophage] 1,000 mg PO BIDCM 09/07/14 Atorvastatin Calcium [Lipitor] 80 mg PO QHS 03/19/16 Clopidogrel Bisulfate [Plavix] 75 mg PO DAILY 03/19/16 Oxycodone HCl/Acetaminophen [Percocet 7.5-325 mg Tablet] 2 tablet PO Q6H PRN PRN 03/19/16 Pregabalin [Lyrica] 225 mg PO BID 03/19/16 Budesonide/Formoterol 160/4.5 [Symbicort 160/4.5 Mcg Inhaler (SP)] 2 puff INHALATION BID 12/15/17 Carvedilol [Coreg (Beta Adriana)] 6.25 mg PO BID 12/15/17 Furosemide [Lasix] 40 mg PO BID 12/15/17 Cephalexin [Keflex] 500 mg PO TID #30 cap 12/20/17 Metronidazole [Flagyl] 500 mg PO TIDCM #30 tab 12/20/17 Following Prescrptions Were Given to Patient: Cephalexin [Keflex] 500 mg PO TID #30 cap Metronidazole [Flagyl] 500 mg PO TIDCM #30 tab Primary Care Physician: Dale Vivar DO [Primary Care Provider] - Please follow up with your Primary Care Physician in: 5 to 7 days. Please Follow Up With: Titi Pena MD When: in 2 weeks. Disposition: Home Patient Condition:: Good Medical Necessity - Tobacco Use Smoking Status: Current every day smoker Tobacco Use: Cigarettes Meaningful Use Info Meaningful Use Diagnoses (Choose all that apply): None applicable Code Visit Inpatient E&M: 56952 Disch Hosp
== END 2017-12-20 17:34 | disposition home health service (06) | DRG 603 ==
LOC: ED 22:27 → MS3 22:52
PROVIDERS: Hospitalist; Admitting Provider Internal Medicine; Emergency Provider Emergency Medicine; Family Provider Student in an Organized Health Care Education/Training Program; PCP Student in an Organized Health Care Education/Training Program; Visit Provider Hospitalist
DX: L03.116 Cellulitis of left lower limb (principal); J96.11 Chronic respiratory failure with hypoxia; I50.22 Chronic systolic (congestive) heart failure; Z68.42 Body mass index [BMI] 45.0-49.9, adult; E11.40 Type 2 diabetes mellitus with diabetic neuropathy, unspecified; E87.5 Hyperkalemia; J44.9 Chronic obstructive pulmonary disease, unspecified; I25.10 Atherosclerotic heart disease of native coronary artery without angina pectoris; D64.9 Anemia, unspecified; F17.210 Nicotine dependence, cigarettes, uncomplicated; E66.9 Obesity, unspecified; Z79.82 Long term (current) use of aspirin; Z79.899 Other long term (current) drug therapy; Z79.84 Long term (current) use of oral hypoglycemic drugs; Z95.1 Presence of aortocoronary bypass graft
CPT/HCPCS: 36415; 71045; 73590; 80048; 80202; 81001; 82607; 82728; 82747; 82962; 83540; 83550; 84132; 85014; 85018; 85025; 85027; 85652; 87040; 87640; 93005; 94640; 97110; 97116; 97162; 97166; 97530; 97535; 99285; J7030; J7040; A4216

== ENCOUNTER 2019-02-27 09:47 | Inpatient (IN) | payer MEDICARE, MEDICAID, SELFPAY ==
[2019-02-27] VITALS (11 sets, daily range): BP systolic 98–153; BP diastolic 43–74; PULSE 78–98; RESP 16–20; TEMP 36.9–39.1; O2SAT 92–100; BMI 46.0; BMI 46.7
--- NOTE | 2019-02-27 10:07 | EKG12_ITS ---
Test Reason : Blood Pressure : / mmHG Vent. Rate : 085 BPM Atrial Rate : 085 BPM P-R Int : 250 ms QRS Dur : 092 ms QT Int : 362 ms P-R-T Axes : 082 -01 090 degrees QTc Int : 430 ms Sinus rhythm with 1st degree A-V block with Premature atrial complexes Nonspecific ST and T wave abnormality Abnormal ECG Confirmed by REUBEN MEEK, KATELYNN ([id number]), editor house organ WILMAR VILLARREAL ([id number]) on 02/28/2019 6:05:45 AM Referred By: Fariha Quiroga Confirmed By:KATELYNN ALEXIS MD
--- NOTE | 2019-02-27 10:10 | RAD_ITS ---
STUDY: X-RAY CHEST REASON FOR EXAM: Female, 68 years old. Shortness of breath/dyspnea. TECHNIQUE: Single AP portable view of the chest. COMPARISON: Comparison is made with prior study dated December 15, 2017. FINDINGS: Mild degree of vascular congestion with bibasilar atelectasis slightly worse on the left side. There is no demonstrated pleural abnormality. Sternal cerclage wires and vascular clips are present from a prior sternotomy and coronary artery bypass graft procedure (CABG). Normal mediastinum and theresa. Normal visualized pulmonary arteries. There is atherosclerotic tortuosity of the aortic arch and descending thoracic aorta. Normal visualized thoracic spine. Normal visualized ribs, clavicles, and shoulders. There is no demonstrated abnormality of the visualized soft tissue structures of the upper abdomen. RAD/Chest 1 View (Portable) IMPRESSION: Vascular congestion and mild degree of CHF with bibasilar atelectasis. Electronically Signed: Colten Spicer, at 10:35 EDT , Service support ,
--- NOTE | 2019-02-27 10:18 | ED.VIS.GEN ---
History of Present Illness Chief Complaint: Shortness of Breath Detail of Chief Complaint: Weakness, fall and cellulitis Informant: Patient Onset: Today Context: Sudden Onset Timing: Continuous Quality: Generalized weakness and cellulitis Location: Left leg Current Severity: Moderate Maximum Severity: Moderate Worsened by: Possibly diabetes Relieved by: Nothing Associated Symptoms: Fall secondary to generalized weakness and incontinence of stool Narrative: Patient is an elderly 68-year-old woman who presents with generalized weakness. She had incontinence of stool secondary to fall. She states she was going to the restroom. She has a wound plantar surface right foot noted for the past 2 weeks. She has a wound lateral dorsal surface left foot that is been known for 2 months. She states the rash on her left leg is new since this morning. The generalized weakness is new. She has had shortness of breath for months and possibly worse the last 1 to 2 weeks. She does report fever and chills. She does report nausea with thirst and dry mouth. She denies cardiac or respiratory symptoms. She denies GI symptoms. Prior similar symptoms: No Recent Illness/Hospitalization: No - Past Medical History (1) History of peripheral arterial disease Status: Acute (2) Left leg cellulitis Status: Acute (3) COPD (chronic obstructive pulmonary disease) Status: Chronic (4) Coronary artery disease Status: Chronic Comment: Status post stents (5) Hypertension Status: Chronic (6) Neuropathy, diabetic Status: Chronic (7) Type 2 diabetes mellitus Status: Chronic Past Medical History - Allergies and Home Meds Allergies/Adverse Reactions: Allergies diltiazem HCl [From Cardizem] Adverse Reaction (Mild, Verified 02/27/19 09:48) Swelling cephalexin [From Keflex] Adverse Reaction (Verified 02/27/19 11:04) Upset Stomach Primary Care Physician: Dale Vivar DO [Primary Care Provider] - Prior records reviewed: Yes Surgical History: coronary bypass surgery, herniorrhaphy, - - cardiac stent placement, left elbow surgery for nerve entrapment Lives: Spouse/ Significant Other Smoking Status: Former smoker Alcohol: None - Family History Maternal Family History: Reports: Heart Disease, Hypertension Paternal Family History: Reports: Heart Disease, Hypertension Review of Systems General: Reports: Chills, Fever, Malaise. Denies: Subjective, Sweats, Weight loss Eyes: Denies: Visual changes - bilaterally, Blurred Vision - bilaterally ENT: Denies: Bilateral ear pain, Rhinorrhea, Sore throat Cardiovascular: Denies: Chest pain, Palpitations Respiratory: Reports: Dyspnea, Cough, Dyspnea on exertion, - - Respiratory symptoms are chronic. Denies: Sputum, Orthopnea, Paroxysmal nocturnal dyspnea Gastrointestinal: Denies: Abdominal pain, Nausea, Vomiting, Diarrhea, Melena, Hematochezia Genitourinary: Denies: Dysuria, Hematuria, Frequency Musculoskeletal: Reports: Swelling, Extremity Pain. Denies: Myalgias, Arthralgias, Neck pain, Back pain Skin: Reports: Rash, Wounds. Denies: Abscess, Abrasions Neurological: Reports: Weakness. Denies: Headache, Parasthesia, Numbness Endocrine: Denies: Polyuria, Polydipsia Hematologic: Reports: Easy bruising, Easy bleeding Allergy: Denies: Uticaria Physical Exam Vital Signs/Narrative: Vital Signs Temp Pulse Resp BP Pulse Ox 02/27/19 10:03 86 17 142/50 H 93 02/27/19 09:58 102.4 F H 02/27/19 09:48 102.4 F H 87 17 153/74 H 92 Inital Vital Signs reviewed: Yes General: Well nourished, Well developed, Obese, No Acute Distress Head: Normocephalic, Atraumatic Eyes: Perrl, EOMI. Negative for: Pale conjunctiva, Scleral icterus, - ENT: No rhinorrhea, TM's clear, Dry mucous membranes Neck: Supple, Nontender, No lymphadenopathy, No JVD Cardiovascular: Regular rate, Regular rhythm, No murmurs, Normal S1, Normal S2 Respiratory: No distress, CTA bilaterally, Chest nontender Abdomen: Soft, Nontender, Nondistended, Normal bowel sounds, No masses Rectal: Deferred Back: Nontender, Normal Inspection Extremities: - - Patient with lymphedema bilaterally. There is evidence of cellulitis the entire left leg. Wounds noted and do not appear infected. DP pulse absent bilaterally. Capillary refill is normal.. Negative for: Nontender, No edema Skin: Normal color, No Trauma, Rash. Negative for: Cyanosis, Diaphoresis, Jaundice Neurological: Alert, Oriented x3, Cranial nerves II-XII grossly intact, Normal Strength, Normal Sensation Psychological: Normal affect, Normal Mood Diagnostic/Tx/Re-eval Chest X-Ray - ED: 1 View, Read by ED Physician, Normal, Bony Structures, No Acute Disease, - - Limited inspiratory volume. Slight rotation. Sternal wires noted. Clips noted. There are no curly B-lines noted. Difficult to interpret this single view x-ray because of poor respiratory volume/limited inspiratory volume and rotation. Impressions Chest X-Ray 02/27/19 10:10 IMPRESSION: Vascular congestion and mild degree of CHF with bibasilar atelectasis. Electronically Signed: Colten Mahanmarina, at 10:35 EDT , Service support , 02/27/19 10:10 Chest 1 View (Portable) [RAD] Stat Laboratory Results 02/27/19 02/27/19 02/27/19 10:45 10:45 10:45 WBC 14.5 H RBC 3.81 L Hgb 10.4 L Hct 33.8 L MCV 88.7 MCH 27.3 MCHC 30.8 L RDW 17.4 H RDW Differential 55.8 H Plt Count 219 MPV 9.9 Immature Gran % (Auto) 0.200 Neut % (Auto) 82.5 H Lymph % (Auto) 9.6 L [place] % (Auto) 6.6 Eos % (Auto) 0.9 Baso % (Auto) 0.2 Absolute Neuts (auto) 12.0 H Absolute Lymphs (auto) 1.39 Total Counted Not Reportable PT 14.1 INR 1.1 APTT 27.6 Sodium 136 Potassium 4.7 Chloride 101 Carbon Dioxide 32.0 Anion Gap 3 L BUN 19 H Creatinine 0.92 Estim Creat Clear Calc 51.94 Est GFR (MDRD) Af Amer 78 Est GFR (MDRD) Non-Af 65 BUN/Creatinine Ratio 20.6 H Glucose 112 H Lactic Acid Calcium 8.6 Total Bilirubin 0.50 AST 9 L ALT 16 Alkaline Phosphatase 103 Total Protein 7.3 Albumin 3.0 L Globulin 4.3 H Albumin/Globulin Ratio 0.7 L 02/27/19 10:45 WBC RBC Hgb Hct MCV MCH MCHC RDW RDW Differential Plt Count MPV Immature Gran % (Auto) Neut % (Auto) Lymph % (Auto) [place] % (Auto) Eos % (Auto) Baso % (Auto) Absolute Neuts (auto) Absolute Lymphs (auto) Total Counted PT INR APTT Sodium Potassium Chloride Carbon Dioxide Anion Gap BUN Creatinine Estim Creat Clear Calc Est GFR (MDRD) Af Amer Est GFR (MDRD) Non-Af BUN/Creatinine Ratio Glucose Lactic Acid 1.5 Calcium Total Bilirubin AST ALT Alkaline Phosphatase Total Protein Albumin Globulin Albumin/Globulin Ratio - Rhythm Strip Rhythm Strip: Sinus Rhythm Rate: 87 Ectopy: PAC(s) - EKG Initial EKG Interpretation: Sinus Rhythm - Ventricular rate 85. There is evidence of first-degree AV block. There are premature atrial beats noted as well. AK interval is 1050 ms. QS duration 92 ms. QT interval is normal. Stevenson is normal. This is not a normal EKG. There is no ischemic changes noted. - Medical Decision Making Suspect patient's temperature 102.4 secondary to cellulitis. Her respiratory symptoms are chronic. Since she has history of COPD has reported increased shortness of breath which may be secondary to cellulitis/sepsis. Will obtain chest x-ray. Sepsis work-up was initiated. Because she is diabetic with wounds will treat with Zosyn and vancomycin first dose. Will need to continue if lactate is elevated. To prevent delay in antibiotic administration blood cultures were ordered initially even though lactate is unknown. Patient has 2 out of 5 Sirs criteria with source. She has sepsis not severe sepsis. Since she has cellulitis of the entire left leg recommendation is inpatient IV antibiotics. For admission to medical surgical unit. Also suggest consult to case management since patient had difficult to caring for self and had BCs on her back and both lower extremities. ED Disposition - Plan for ED Patient: Disposition: Acute Care Hospital [facility] Diagnosis: Sepsis, Cellulitis of left leg without foot, Diabetic wound left foot, History of peripheral arterial disease, Type 2 diabetes mellitus, Neuropathy, diabetic Referrals: Dale Vivar DO [Primary Care Provider] -
[2019-02-27 11:02] LABS: Absolute Lymphocyte Count 1.39 X10^3/ul (0.83-4.51); Basophil# 0.03 X10^3/uL; Basophil% 0.2 % (0-1); Eosinophil# 0.13 X10^3/uL; Eosinophils% 0.9 % (0-5); Hematocrit 33.8 % (37-47); Hemoglobin 10.4 g/dl (12.0-15.0); Lymphocyte # 1.39 X10^3/ul (4.0); Lymphocyte % 9.6 % (19-41); Mean Corp Hgb Conc 30.8 g/gl (32-36); Mean Corpuscular Hgb 27.3 pg (27.0-32.0); Mean Corpuscular Volume 88.7 fL (81-99); Mean Platelet Vol. 9.9 fl (6.2-12.0); Monocyte# 0.96 X10^3/uL; Monocyte% 6.6 % (0-10); Neutrophil # 11.97 X10^3/uL (2.7-7.7); Neutrophil % 82.5 % (47-70); Platelet Count 219 K/mm3 (150-450); RBC Distribution Width CV 17.4 % (11.6-14.6); RBC Distribution Width SD 55.8 fl (35.1-43.9); Red Blood Count 3.81 M/mm3 (4.2-5.4); White Blood Count 14.5 K/mm3 (4.4-11.0)
[2019-02-27 11:04] LABS: POSITIVE COUNT NO; POSITIVE DIFFERENTIAL NO; POSITIVE MORPHOLOGY NO
[2019-02-27] MEDS: 0.9% Normal Saline 1,000 ML 250 ML IV ×2 (11:05→17:19)
[2019-02-27 11:08] LABS: International Normalized Ratio 1.1; Prothrombin Time (Protime)PT. 14.1 SECONDS (11.7-14.9)
[2019-02-27 11:09] LABS: Partial Thromboplast Time 27.6 Seconds (24.1-36.2)
[2019-02-27 11:13] LABS: ALB/GLOB Ratio 0.7 RATIO (0.9-2.4); AST(SGOT) 9 U/L (15-37); Alanine Aminotransfer ALT/SGPT 16 U/L (13-56); Alkaline Phosphatase 103 U/L (45-117); Anion Gap 3 (5-15); BUN 19 mg/dL (7-18); BUN/Creat Ratio 20.6 RATIO (10-20); Calcium,Total 8.6 mg/dL (8.5-10.1); Chloride 101 mmol/L (98-107); Creatinine, Serum 0.92 mg/dL (0.55-1.02); EST Glomerular Filtration Rate 65 mL/min (>60); Est Glom Filt Rate - Afr Amer 78 mL/min (>60); Estimated Creatinine Clearance 51.94 ml/min; Globulin 4.3 g/dL (2.2-4.2); Glucose 112 mg/dL (74-106); Potassium 4.7 mmol/L (3.5-5.1); Protein, Total 7.3 g/dL (6.4-8.2); Sodium Level 136 mmol/L (136-145)
[2019-02-27 11:30] LABS: Lactic Acid 1.5 mmol/L (0.4-2.0)
--- NOTE | 2019-02-27 12:06 | NURSING ---
DR LEONEL HALL
--- NOTE | 2019-02-27 12:07 | HP.PCM_ITS ---
History of Present Illness Date of Admission: 02/27/19 Chief Complaint: fever, fall The patient is a 68 year old F with an extensive past medical history as listed. She was admitted through the ED on 02/27/2019 with a complaint of mechanical fall as well as shortness of breath and weakness. Patient states she was trying to get up and fell. She had also noticed redness on the left lower extremity which started today and had gradually worsened. Patient has had recurrent episodes of cellulitis with the last 1 para EMR being in 2018. She admitted to fever and chills and also had nausea with dry mouth. She denied any chest pain or palpitations, dizziness, diarrhea vomiting. Review of systems otherwise negative. The ED, she was noted to be febrile with temperature of around 102. Vitals were otherwise stable and she was requiring 3 L of oxygen with her baseline being on 2 L of oxygen. White cell count was elevated at 14.5. She has been admitted to be managed for sepsis due to cellulitis of the left lower extremity. [] Past Medical History Past Medical History (Chronic Problems): Chronic Problems Coronary artery disease (Chronic) Status post stents Hypertension (Chronic) COPD (chronic obstructive pulmonary disease) (Chronic) Neuropathy, diabetic (Chronic) Type 2 diabetes mellitus (Chronic) Allergies diltiazem HCl [From Cardizem] Adverse Reaction (Mild, Verified 02/27/19 09:48) Swelling cephalexin [From Keflex] Adverse Reaction (Verified 02/27/19 11:04) Upset Stomach Home Medications: Ambulatory Orders Medication Instructions Recorded Aspirin E.C. [Ecotrin] 81 mg PO DAILY 09/07/14 Isosorbide Mononitrate [Isosorbide 60 mg PO DAILY 09/07/14 Mononitrate ER] Lisinopril [Zestril] 20 mg PO DAILY 09/07/14 metFORMIN HCl [Glucophage] 1,000 mg PO BIDCM 09/07/14 Atorvastatin Calcium [Lipitor] 80 mg PO QHS 03/19/16 Clopidogrel Bisulfate [Plavix] 75 mg PO DAILY 03/19/16 Oxycodone HCl/Acetaminophen 2 tablet PO Q6H PRN PRN 03/19/16 [Percocet 7.5-325 mg Tablet] Pregabalin [Lyrica] 225 mg PO BID 03/19/16 Budesonide/Formoterol 160/4.5 2 puff INHALATION BID 12/15/17 [Symbicort 160/4.5 Mcg Inhaler (SP)] Carvedilol [Coreg (Beta Adriana)] 6.25 mg PO BID 12/15/17 Furosemide [Lasix] 40 mg PO BID 12/15/17 Cephalexin [Keflex] 500 mg PO TID #30 cap 12/20/17 metroNIDAZOLE [Flagyl] 500 mg PO TIDCM #30 tab 12/20/17 Surgical History: coronary bypass surgery, herniorrhaphy, - - cardiac stent placement, left elbow surgery for nerve entrapment Psychiatric History: No pertinent psych hx 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 Denies: Anorexia Eyes: Denies: Blurred vision HEENT: Denies: Head Aches, Sinus Congestion, Sinus Drainage Cardiovascular: Denies: Chest Pain, Palpitations Respiratory: Reports: Shortness of Breath, Shortness of breath at rest, Shortness of breath upon exertion. Denies: Cough, Sputum production, Wheezing Gastrointestinal: Denies: Abdominal Pain, Nausea, Vomiting Genitourinary: Denies: Dysuria Musculoskeletal: Denies: Joint Pain, Joint Tenderness Skin: Reports: Wounds, - - redness of LLE Neurological: Denies: Numbness, Tingling, Focal weakness Psychiatric: Denies: Anxiety, Depression, Homicidal Ideations, Suicidal Ideations Hematologic/ Lymphatic: Denies: Easy Bruising, Easy Bleeding VTE Information - Inpt Only VTE Present on Admission: No VTE Pharm Prophylaxis ordered?: Yes Patient Problems: Active and Suspected Problems History of peripheral arterial disease (Acute) Sepsis (Acute) Cellulitis of left leg without foot (Acute) - Physical Exam General: Alert, Oriented x3, Cooperative, No apparent distress HEENT: Atraumatic, PERRLA, EOMI, Normocephalic Oral: Dry Mucosa Neck: Supple, No JVD, Negative Carotid Bruits Lungs: - - diminished breath sounds bibasally, no wheezes or crackles. on 2L of oxygen Cardiovascular: Regular rate, Regular Rhythm, Normal S1, Normal S2, No murmurs Abdomen: Bowel Sounds Present, Soft, Non Tender, Non-Distended, No Hepato- splenomegaly Extremities: No clubbing, No cyanosis, No edema, - - toes bilaterally are blue and cool to touch, due to chronic PAD. DP pulse diminished but palpable Skin: - - redness, differential warmth and mild tendnernes of LLE, from ankle to just below knee. no visible discharge. Has superficial ulceration on streeter of right LE, which she says is chronic. LLE ankle wrapped in bandage. Musculoskeletal: No Tenderness to Palpation of Joints or Extremities Lymphatic: No Cervical, Supraclavicular, or Inguinal Adenopathy Neurological: Cranial nerves II-XII grossly intact, Neuro grossly intact, Motor Exam 5/5 strength throughout Psych/Mental Status: Normal Affect, Appropriate, Alert and oriented to time, place, person, mood and affect Vital Signs Temp Pulse Resp BP Pulse Ox 100.7 F H 97 18 100/47 L 97 02/27/19 12:00 02/27/19 12:00 02/27/19 12:00 02/27/19 12:00 02/27/19 12:00 Oxygen Flow Rate (L/min) 4 Oxygen Delivery Method Room Air Weight: 268 lb Body Mass Index (BMI) 46.0 Laboratory Tests Past 24 Hrs 02/27/19 02/27/19 02/27/19 10:45 10:45 10:45 WBC 14.5 H RBC 3.81 L Hgb 10.4 L Hct 33.8 L MCV 88.7 MCH 27.3 MCHC 30.8 L RDW 17.4 H RDW Differential 55.8 H Plt Count 219 MPV 9.9 Immature Gran % (Auto) 0.200 Neut % (Auto) 82.5 H Lymph % (Auto) 9.6 L Moody % (Auto) 6.6 Eos % (Auto) 0.9 Baso % (Auto) 0.2 Absolute Neuts (auto) 12.0 H Absolute Lymphs (auto) 1.39 Total Counted Not Reportable PT 14.1 INR 1.1 APTT 27.6 Sodium 136 Potassium 4.7 Chloride 101 Carbon Dioxide 32.0 Anion Gap 3 L BUN 19 H Creatinine 0.92 Estim Creat Clear Calc 51.94 Est GFR (MDRD) Af Amer 78 Est GFR (MDRD) Non-Af 65 BUN/Creatinine Ratio 20.6 H Glucose 112 H Lactic Acid Calcium 8.6 Total Bilirubin 0.50 AST 9 L ALT 16 Alkaline Phosphatase 103 Total Protein 7.3 Albumin 3.0 L Globulin 4.3 H Albumin/Globulin Ratio 0.7 L 02/27/19 10:45 WBC RBC Hgb Hct MCV MCH MCHC RDW RDW Differential Plt Count MPV Immature Gran % (Auto) Neut % (Auto) Lymph % (Auto) Moody % (Auto) Eos % (Auto) Baso % (Auto) Absolute Neuts (auto) Absolute Lymphs (auto) Total Counted PT INR APTT Sodium Potassium Chloride Carbon Dioxide Anion Gap BUN Creatinine Estim Creat Clear Calc Est GFR (MDRD) Af Amer Est GFR (MDRD) Non-Af BUN/Creatinine Ratio Glucose Lactic Acid 1.5 Calcium Total Bilirubin AST ALT Alkaline Phosphatase Total Protein Albumin Globulin Albumin/Globulin Ratio Diagnostic Data Chest X-Ray 02/27/19 10:10 IMPRESSION: Vascular congestion and mild degree of CHF with bibasilar atelectasis. Electronically Signed: Colten Spicer, at 10:35 EDT , Service support , Assessment/Plan All Active Problems History of peripheral arterial disease (Acute) Sepsis (Acute) Cellulitis of left leg without foot (Acute) Left leg cellulitis (Acute) 68 y/o admitted with a complaint of shortness of breawth and LLE swelling and redness 1. Sepsis due to LLE cellulitis * admit to med surg with telemetry * SIRS criteria is 2/4 (fever and leucocytosis) * consult wound care * start IV vancomycin and zosyn * blood cultures * keep LLE elevated. * duplex of LLE * 2. CAD s/p stents: On carvedilol, aspirin and Plavix as well as Imdur. 3. Type 2 diabetes mellitus with peripheral neuropathy: On metformin thousand milligrams twice daily. Insulin sliding scale. Accu-Cheks AC at bedtime. Also on Lyrica and Percocet for pain. 4. COPD: On Symbicort. Breathing treatments with DuoNeb's. 5. Chronic hypoxic respiratory failure: On 2 L of oxygen. Titrate to maintain oxygen. 6. Hypertension: On lisinopril. * DVT prophylaxis: Heparin Code Visit Inpatient E&M: 04874 Init Hosp L3
--- NOTE | 2019-02-27 12:09 | NURSING ---
MED SURG SEPSIS DUE TO CELLULITIS LEONEL
--- NOTE | 2019-02-27 13:12 | CASEMGMT ---
RN CM Assessment Introduced role of RN CM to patient.? Patient is alert, oriented and able?to participate in RN CM Assessment. ?Care providers, pharmacy, and demographics verified. Presentation: Increased Redness, Warmth, Swelling to Lt Leg, Wounds to Bilt Feet, Increased SOB over the last Cpl Days, slipped out of bed this morning. Admit Dx: Sepsis D/t Cellulitis Re-Admit: No Barriers/Issues: H/o COPD and CHF reported by patient. Current Smoker on Home O2. H/o Diabetes on Oral Medication, does not have a Glucometer or Check Blood Sugar. H/o Diabetic Neuropathy with Bilt Feet wounds, Currently receiving HHC for Wound care. This CM noted H/o CARRIE in Chart but patient denied having/using a CPAP. PCP: Dale Vivar Specialists: Vasc Surgeon- Dr Roberta Dietrich. Pod- Dr Barahona Preferred Pharmacy: [facility] Insurance: [facility], [facility] Rx Benefit:?Yes LNOK: Yossi Tello LW/HPOA: No, Would like Information Living Arrangements:?Lives with her in a home, 2 steps to enter. ADL?s: Ambulates with walker, requires assistance with meals- heats up frozen meals, and assistance with bathing by Aide. Otherwise Independent with all other ADL's. Transportation: [facility] D[facility]: Home O2 2L-[employer], Nebulizer, Walker, Shower Chair. HHC: Current with [facility] for wound Care and an Aide for Bathing. SNF: None Goal: Home with resumption of HHC, does not think will have any other additional needs. DC PLAN: Home with Resumption of HHC, Possible Home IV Abx. SHERRY Austin
--- NOTE | 2019-02-27 14:09 | PCM.RX.CS ---
Consult Pharmacy has been consulted to manage selected antiobiotic: Vancomycin Type of Consult: New start Suspected Infection: Sepsis, Skin/Soft tissue Prior Doses of Antibiotics Received/Current Regimen: VANCOMYCIN 1750MG IV X1 IN ED 02/27 @1159 Labs: Sodium 136 mmol/L (136-145) 02/27/19 10:45 Potassium 4.7 mmol/L (3.5-5.1) 02/27/19 10:45 Chloride 101 mmol/L (98-107) 02/27/19 10:45 Carbon Dioxide 32.0 mmol/L (21.0-32.0) 02/27/19 10:45 Anion Gap 3 (5-15) L 02/27/19 10:45 BUN 19 mg/dL (7-18) H 02/27/19 10:45 Creatinine 0.92 mg/dL (0.55-1.02) 02/27/19 10:45 Est GFR (MDRD) Af Amer 78 mL/min (>60) 02/27/19 10:45 Est GFR (MDRD) Non-Af 65 mL/min (>60) 02/27/19 10:45 BUN/Creatinine Ratio 20.6 RATIO (10-20) H 02/27/19 10:45 Glucose 112 mg/dL (74-106) H 02/27/19 10:45 Weight used for dosin.4 kg Estimated Creatinine Clearance: 52ML/MIN Goal Trough: 15-20 mcg/mL Pharmacy Plan for Drug Dosing: Pharmacy to manage vancomycin per consult. The initial consult order requested a loading dose with high trough (15-20). The patient's loading dose qualified for 2000mg IV x1. Since the patient got 1750mg in the ED this morning, rather than supplementing the ER dose, will plan on starting scheduled dosing 8hours from the initial dose rather than 12 to accommodate the consult order's loading dose. Will still draw a trough prior to the 4th total dose of vancomycin per protocol. PLAN/RECOMMENDATIONS 1. NO loading dose at this time- will start scheduled vancomycin dosing 8 hours from ER dose instead. 2. Vancomycin 1250mg IV Q12hrs to start 02/27 @2000 3. Trough scheduled 02/28 @1930, prior to 4th total dose of vancomycin 4. Pharmacy Service will continue to monitor and adjust dosing as required.
[2019-02-27] MEDS: Acetaminophen 325 MG Tablet 650 MG PO (17:11)
[2019-02-27] MEDS: Insulin Lispro 100 UNIT/ML INSULN.PEN SQ (17:17)
[2019-02-27 17:25] LABS: Bedside Glucose 214 mg/dL (70-110)
[2019-02-27] MEDS: Budesonide Respules 0.5 MG/2 ML AMPUL.NEB. INHALATION (19:05)
[2019-02-27] MEDS: Albuterol 2.5 MG/3 ML VIAL.NEB. INHALATION (19:05)
[2019-02-27] MEDS: oxyCODONE 5 MG Tablet 10 MG PO (20:21)
[2019-02-27] MEDS: Pregabalin 75 MG Capsule 225 MG PO (22:26)
[2019-02-27] MEDS: Atorvastatin Calcium 80 MG Tablet PO (22:26)
[2019-02-27 23:00] LABS: Bedside Glucose 112 mg/dL (70-110)
[2019-02-27] MEDS: oxyCODONE 5 MG Tablet 20 MG PO (23:27)
[2019-02-28] VITALS (12 sets, daily range): BP systolic 106–139; BP diastolic 50–80; PULSE 67–90; RESP 18–20; TEMP 36.6–36.8; O2SAT 93–100
[2019-02-28] MEDS: 0.9% Normal Saline 1,000 ML 100 ML IV ×2 (03:03→15:43)
[2019-02-28 06:02] LABS: Absolute Lymphocyte Count 1.66 X10^3/ul (0.83-4.51); Absolute Neutrophil Count 6.6 X10^3/uL (2.0-7.7); Basophil# 0.03 X10^3/uL; Basophil% 0.3 % (0-1); Eosinophil# 0.08 X10^3/uL; Eosinophils% 0.9 % (0-5); Hematocrit 31.3 % (37-47); Hemoglobin 9.4 g/dl (12.0-15.0); Lymphocyte # 1.66 X10^3/ul (4.0); Lymphocyte % 18.5 % (19-41); Mean Corpuscular Volume 89.9 fL (81-99); Mean Platelet Vol. 10.5 fl (6.2-12.0); Monocyte# 0.64 X10^3/uL; Monocyte% 7.1 % (0-10); Neutrophil # 6.55 X10^3/uL (2.7-7.7); Neutrophil % 72.9 % (47-70); Platelet Count 182 K/mm3 (150-450); RBC Distribution Width CV 17.5 % (11.6-14.6); RBC Distribution Width SD 55.8 fl (35.1-43.9); Red Blood Count 3.48 M/mm3 (4.2-5.4)
[2019-02-28 06:06] LABS: POSITIVE COUNT NO; POSITIVE DIFFERENTIAL NO; POSITIVE MORPHOLOGY NO
[2019-02-28 06:14] LABS: Anion Gap 4 (5-15); BUN 14 mg/dL (7-18); BUN/Creat Ratio 19.7 RATIO (10-20); Calcium,Total 7.9 mg/dL (8.5-10.1); Chloride 107 mmol/L (98-107); Creatinine, Serum 0.71 mg/dL (0.55-1.02); EST Glomerular Filtration Rate 87 mL/min (>60); Est Glom Filt Rate - Afr Amer 106 mL/min (>60); Estimated Creatinine Clearance 47.79 ml/min; Glucose 110 mg/dL (74-106); Potassium 4.3 mmol/L (3.5-5.1); Sodium Level 140 mmol/L (136-145)
[2019-02-28] MEDS: oxyCODONE 5 MG Tablet 20 MG PO ×3 (06:24→22:51)
[2019-02-28 06:46] LABS: Bedside Glucose 112 mg/dL (70-110)
[2019-02-28] MEDS: Budesonide Respules 0.5 MG/2 ML AMPUL.NEB. INHALATION ×2 (07:04→19:23)
[2019-02-28] MEDS: Albuterol 2.5 MG/3 ML VIAL.NEB. INHALATION ×3 (07:04→19:22)
[2019-02-28] MEDS: Isosorbide Mononitrate 60 MG Tablet PO (08:53)
[2019-02-28] MEDS: metFORMIN HCl 1,000 MG Tablet 1000 MG PO ×2 (08:53→17:12)
[2019-02-28] MEDS: Lisinopril 20 MG Tablet PO (08:53)
[2019-02-28] MEDS: Aspirin E.C. 81 MG Tablet PO (08:53)
[2019-02-28] MEDS: Clopidogrel Bisulfate 75 MG Tablet PO (08:54)
[2019-02-28] MEDS: Enoxaparin 40 MG/0.4 ML Syringe SC (08:54)
[2019-02-28] MEDS: Pregabalin 75 MG Capsule 225 MG PO ×2 (09:07→22:53)
--- NOTE | 2019-02-28 09:18 | PCM.PN.HOSP ---
Patient Problems: Active and Suspected Problems History of peripheral arterial disease (Acute) Sepsis (Acute) Cellulitis of left leg without foot (Acute) Subjective: Patient seen and examined. She feels much better today. She denies any fever chills, palpitations or dizziness, chest pain, diarrhea vomiting. Swelling on her leg is better and redness is also better. Review of systems otherwise negative. Labs and vitals reviewed. Vitals/I&O's: Vital Signs Temp Pulse Resp BP Pulse Ox 98.2 F 80 20 H 113/50 L 99 02/28/19 06:35 02/28/19 06:35 02/28/19 06:35 02/28/19 06:35 02/28/19 06:35 Oxygen Flow Rate (L/min) 2 Oxygen Delivery Method Nasal Cannula Weight: 272 lb 0.807 oz Body Mass Index (BMI) 46.7 Intake and Output for Last 24 Hours 02/26/19 02/27/19 02/28/19 23:59 23:59 23:59 Intake Total 2047 / 2047 Output Total 750 / 750 Balance 1297 / 1297 General: Alert, Oriented x3, Cooperative, No apparent distress HEENT: Atraumatic, PERRLA, EOMI, Normocephalic Oral: Dry Mucosa Neck: Supple, No JVD, Negative Carotid Bruits Lungs: - - diminished breath sounds bibasally, no wheezes or crackles. on 2L of oxygen Cardiovascular: Regular rate, Regular Rhythm, Normal S1, Normal S2, No murmurs Abdomen: Bowel Sounds Present, Soft, Non Tender, Non-Distended, No Hepato-splenomegaly Extremities: No clubbing, No cyanosis, No edema, - - toes bilaterally are blue and cool to touch, due to chronic PAD. DP pulse diminished but palpable Skin: - - redness, differential warmth and mild tendnernes of LLE, from ankle to just below knee have improved slightly. Musculoskeletal: No Tenderness to Palpation of Joints or Extremities Lymphatic: No Cervical, Supraclavicular, or Inguinal Adenopathy Neurological: Cranial nerves II-XII grossly intact, Neuro grossly intact, Motor Exam 5/5 strength throughout Psych/Mental Status: Normal Affect, Appropriate, Alert and oriented to time, place, person, mood and affect Laboratory Results 02/27/19 10:45: WBC 14.5 H, RBC 3.81 L, Hgb 10.4 L, Hct 33.8 L, MCV 88.7, MCH 27.3, MCHC 30.8 L, RDW 17.4 H, RDW Differential 55.8 H, Plt Count 219, MPV 9.9, Immature Gran % (Auto) 0.200, Neut % (Auto) 82.5 H, Lymph % (Auto) 9.6 L, Grundy % (Auto) 6.6, Eos % (Auto) 0.9, Baso % (Auto) 0.2, Absolute Neuts (auto) 12.0 H, Absolute Lymphs (auto) 1.39, Total Counted Not Reportable 02/27/19 10:45: PT 14.1, INR 1.1, APTT 27.6 02/27/19 10:45: Sodium 136, Potassium 4.7, Chloride 101, Carbon Dioxide 32.0, Anion Gap 3 L, BUN 19 H, Creatinine 0.92, Estim Creat Clear Calc 51.94, Est GFR (MDRD) Af Amer 78, Est GFR (MDRD) Non-Af 65, BUN/Creatinine Ratio 20.6 H, Glucose 112 H, Calcium 8.6, Total Bilirubin 0.50, AST 9 L, ALT 16, Alkaline Phosphatase 103, Total Protein 7.3, Albumin 3.0 L, Globulin 4.3 H, Albumin/Globulin Ratio 0.7 L 02/27/19 10:45: Lactic Acid 1.5 02/27/19 17:16: POC Glucose 214 H 02/27/19 22:28: POC Glucose 112 H 02/28/19 05:20: WBC 9.0, RBC 3.48 L, Hgb 9.4 L, Hct 31.3 L, MCV 89.9, MCH 27.0, MCHC 30.0 L, RDW 17.5 H, RDW Differential 55.8 H, Plt Count 182, MPV 10.5, Immature Gran % (Auto) 0.300, Neut % (Auto) 72.9 H, Lymph % (Auto) 18.5 L, Grundy % (Auto) 7.1, Eos % (Auto) 0.9, Baso % (Auto) 0.3, Absolute Neuts (auto) 6.6, Absolute Lymphs (auto) 1.66, Total Counted Not Reportable 02/28/19 05:20: Sodium 140, Potassium 4.3, Chloride 107, Carbon Dioxide 29.0, Anion Gap 4 L, BUN 14, Creatinine 0.71, Estim Creat Clear Calc 47.79, Est GFR (MDRD) Af Amer 106, Est GFR (MDRD) Non-Af 87, BUN/Creatinine Ratio 19.7, Glucose 110 H, Calcium 7.9 L 02/28/19 06:30: POC Glucose 112 H Diagnostic Data Chest X-Ray 02/27/19 10:10 IMPRESSION: Vascular congestion and mild degree of CHF with bibasilar atelectasis. Electronically Signed: Colten Nayan, at 10:35 EDT , Service support , Current Medications Acetaminophen (Tylenol) 650 mg PO Q6H PRN PRN PRN Reason: Mild Pain (1-3)/Temp > 100.7 F Last Admin: 02/27/19 17:11 Dose: 650 mg Albuterol Sulfate (Ventolin Aerosols) 2.5 mg INHALATION Q6HWA.RT [facility] Last Admin: 02/28/19 07:04 Dose: 2.5 mg Aspirin (Ecotrin) 81 mg PO DAILYCM [facility] Last Admin: 02/28/19 08:53 Dose: 81 mg Atorvastatin Calcium (Lipitor) 80 mg PO QHS [facility] Last Admin: 02/27/19 22:26 Dose: 80 mg Budesonide (Pulmicort Aerosol) 0.5 mg INHALATION Q12H.RT [facility] Last Admin: 02/28/19 07:04 Dose: 0.5 mg Clopidogrel Bisulfate (Plavix) 75 mg PO DAILY [facility] Last Admin: 02/28/19 08:54 Dose: 75 mg Dextrose (D50w Syringe) 0 gm IV X1 PRN; Protocol PRN Reason: Hypoglycemia Enoxaparin Sodium (Lovenox) 40 mg SC DAILY@1000 [facility] Last Admin: 02/28/19 08:54 Dose: 40 mg Glucagon () 1 mg IM .X1 PRN PRN Reason: Hypoglycemia Piperacillin Sod/Tazobactam (Sod 3.375 gm/ Sodium Chloride) 50 mls @ 12.5 mls/hr IV Q8 [facility] Last Admin: 02/28/19 06:24 Dose: 12.5 mls/hr Vancomycin IV Pharmacy to Dose (1 ea/ Sodium Chloride) 500 mls @ 250 mls/hr IV PRN PRN; Protocol PRN Reason: Rx to Dose Vancomycin HCl 1,250 mg/ (Sodium Chloride) 275 mls @ 167 mls/hr IV Q12H [facility] Last Admin: 02/28/19 08:52 Dose: 167 mls/hr Sodium Chloride () 1,000 mls @ 100 mls/hr IV .Q10H [facility] Last Admin: 02/28/19 03:03 Dose: 100 mls/hr Insulin Human Lispro (Humalog Kwikpen (Bkc)) 0 unit SQ ACHS [facility]; Protocol Last Admin: 02/28/19 06:31 Dose: Not Given Isosorbide Mononitrate (Imdur) 60 mg PO DAILY [facility] Last Admin: 02/28/19 08:53 Dose: 60 mg Lisinopril (Zestril) 20 mg PO DAILY [facility] Last Admin: 02/28/19 08:53 Dose: 20 mg Metformin HCl (Glucophage) 1,000 mg PO BIDCM [facility] Last Admin: 02/28/19 08:53 Dose: 1,000 mg Ondansetron HCl (Zofran) 4 mg IV Q8H PRN PRN PRN Reason: NAUSEA/VOMITING Oxycodone HCl (Oxyir) 20 mg PO TID [facility] Last Admin: 02/28/19 06:24 Dose: 20 mg Pregabalin (Lyrica) 225 mg PO BID [facility] Last Admin: 02/28/19 09:07 Dose: 225 mg Sodium Chloride () 5 - 15 ml IV UD PRN PRN Reason: SALINE FLUSH Medical Necessity - Tobacco Use Smoking Status: Heavy Smoker (>10/day) Tobacco Use: Secondhand, Cigarettes Assessment/Plan All Active Problems History of peripheral arterial disease (Acute) Sepsis (Acute) Cellulitis of left leg without foot (Acute) Left leg cellulitis (Acute) 68 y/o admitted with a complaint of shortness of breawth and LLE swelling and redness 1. Sepsis due to LLE cellulitis admit to med surg with telemetry SIRS criteria is 2/4 (fever and leucocytosis) Leukocytosis has resolved and white cell count is down to 9. Fever has also resolved. Blood cultures pending. Based on previous treatment for cellulitis in this patient, will switch antibiotics to IV cefazolin. Will get duplex of the left lower extremity. Tylenol for pain. 2. CAD s/p stents: On carvedilol, aspirin and Plavix as well as Imdur. 3. Type 2 diabetes mellitus with peripheral neuropathy: On metformin 1000mg twice daily. Insulin sliding scale. Accu-Cheks AC at bedtime. Also on Lyrica and Percocet for pain. 4. COPD: On Symbicort. Breathing treatments with DuoNebs. 5. Chronic hypoxic respiratory failure: On 2 L of oxygen. Titrate to maintain oxygen saturation at >90% 6. Hypertension: On lisinopril. DVT prophylaxis: Heparin Code Visit Inpatient E&M: 89083 Subs Hosp L3
--- NOTE | 2019-02-28 09:30 | PN_ITS ---
Patient Problems: Active and Suspected Problems History of peripheral arterial disease (Acute) Sepsis (Acute) Cellulitis of left leg without foot (Acute) Subjective: Patient seen and examined. She feels much better today. She denies any fever chills, palpitations or dizziness, chest pain, diarrhea vomiting. Swelling on her leg is better and redness is also better. Review of systems otherwise negative. Labs and vitals reviewed. Vitals/I&O's: Vital Signs Temp Pulse Resp BP Pulse Ox 98.2 F 80 20 H 113/50 L 99 02/28/19 06:35 02/28/19 06:35 02/28/19 06:35 02/28/19 06:35 02/28/19 06:35 Oxygen Flow Rate (L/min) 2 Oxygen Delivery Method Nasal Cannula Weight: 272 lb 0.807 oz Body Mass Index (BMI) 46.7 Intake and Output for Last 24 Hours 02/26/19 02/27/19 02/28/19 23:59 23:59 23:59 Intake Total 2047 / 2047 Output Total 750 / 750 Balance 1297 / 1297 General: Alert, Oriented x3, Cooperative, No apparent distress HEENT: Atraumatic, PERRLA, EOMI, Normocephalic Oral: Dry Mucosa Neck: Supple, No JVD, Negative Carotid Bruits Lungs: - - diminished breath sounds bibasally, no wheezes or crackles. on 2L of oxygen Cardiovascular: Regular rate, Regular Rhythm, Normal S1, Normal S2, No murmurs Abdomen: Bowel Sounds Present, Soft, Non Tender, Non-Distended, No Hepato- splenomegaly Extremities: No clubbing, No cyanosis, No edema, - - toes bilaterally are blue and cool to touch, due to chronic PAD. DP pulse diminished but palpable Skin: - - redness, differential warmth and mild tendnernes of LLE, from ankle to just below knee have improved slightly. Musculoskeletal: No Tenderness to Palpation of Joints or Extremities Lymphatic: No Cervical, Supraclavicular, or Inguinal Adenopathy Neurological: Cranial nerves II-XII grossly intact, Neuro grossly intact, Motor Exam 5/5 strength throughout Psych/Mental Status: Normal Affect, Appropriate, Alert and oriented to time, place, person, mood and affect Laboratory Results 02/27/19 10:45: WBC 14.5 H, RBC 3.81 L, Hgb 10.4 L, Hct 33.8 L, MCV 88.7, MCH 27.3, MCHC 30.8 L, RDW 17.4 H, RDW Differential 55.8 H, Plt Count 219, MPV 9.9, Immature Gran % (Auto) 0.200, Neut % (Auto) 82.5 H, Lymph % (Auto) 9.6 L, Stone % (Auto) 6.6, Eos % (Auto) 0.9, Baso % (Auto) 0.2, Absolute Neuts (auto) 12.0 H, Absolute Lymphs (auto) 1.39, Total Counted Not Reportable 02/27/19 10:45: PT 14.1, INR 1.1, APTT 27.6 02/27/19 10:45: Sodium 136, Potassium 4.7, Chloride 101, Carbon Dioxide 32.0, Anion Gap 3 L, BUN 19 H, Creatinine 0.92, Estim Creat Clear Calc 51.94, Est GFR (MDRD) Af Amer 78, Est GFR (MDRD) Non-Af 65, BUN/Creatinine Ratio 20.6 H, Glucose 112 H, Calcium 8.6, Total Bilirubin 0.50, AST 9 L, ALT 16, Alkaline Phosphatase 103, Total Protein 7.3, Albumin 3.0 L, Globulin 4.3 H, Albumin/Globulin Ratio 0.7 L 02/27/19 10:45: Lactic Acid 1.5 02/27/19 17:16: POC Glucose 214 H 02/27/19 22:28: POC Glucose 112 H 02/28/19 05:20: WBC 9.0, RBC 3.48 L, Hgb 9.4 L, Hct 31.3 L, MCV 89.9, MCH 27.0, MCHC 30.0 L, RDW 17.5 H, RDW Differential 55.8 H, Plt Count 182, MPV 10.5, Immature Gran % (Auto) 0.300, Neut % (Auto) 72.9 H, Lymph % (Auto) 18.5 L, Stone % (Auto) 7.1, Eos % (Auto) 0.9, Baso % (Auto) 0.3, Absolute Neuts (auto) 6.6, Absolute Lymphs (auto) 1.66, Total Counted Not Reportable 02/28/19 05:20: Sodium 140, Potassium 4.3, Chloride 107, Carbon Dioxide 29.0, Anion Gap 4 L, BUN 14, Creatinine 0.71, Estim Creat Clear Calc 47.79, Est GFR (MDRD) Af Amer 106, Est GFR (MDRD) Non-Af 87, BUN/Creatinine Ratio 19.7, Glucose 110 H, Calcium 7.9 L 02/28/19 06:30: POC Glucose 112 H Diagnostic Data Chest X-Ray 02/27/19 10:10 IMPRESSION: Vascular congestion and mild degree of CHF with bibasilar atelectasis. Electronically Signed: Colten Nayan, at 10:35 EDT , Service support , Current Medications Acetaminophen (Tylenol) 650 mg PO Q6H PRN PRN PRN Reason: Mild Pain (1-3)/Temp > 100.7 F Last Admin: 02/27/19 17:11 Dose: 650 mg Albuterol Sulfate (Ventolin Aerosols) 2.[address] [facility] Last Admin: 02/28/19 07:04 Dose: 2.5 mg Aspirin (Ecotrin) [address] [facility] Last Admin: 02/28/19 08:53 Dose: 81 mg Atorvastatin Calcium (Lipitor) [address] [facility] Last Admin: 02/27/19 22:26 Dose: 80 mg Budesonide (Pulmicort Aerosol) 0.[address] [facility] Last Admin: 02/28/19 07:04 Dose: 0.5 mg Clopidogrel Bisulfate (Plavix) [address] [facility] Last Admin: 02/28/19 08:54 Dose: 75 mg Dextrose (D50w Syringe) 0 gm IV X1 PRN; Protocol PRN Reason: Hypoglycemia Enoxaparin Sodium (Lovenox) 40 mg SC DAILY@1000 [facility] Last Admin: 02/28/19 08:54 Dose: 40 mg Glucagon () 1 mg IM .X1 PRN PRN Reason: Hypoglycemia Piperacillin Sod/Tazobactam (Sod 3.375 gm/ Sodium Chloride) 50 mls @ 12.5 mls/hr IV Q8 [facility] Last Admin: 02/28/19 06:24 Dose: 12.5 mls/hr Vancomycin IV Pharmacy to Dose (1 ea/ Sodium Chloride) 500 mls @ 250 mls/hr IV PRN PRN; Protocol PRN Reason: Rx to Dose Vancomycin HCl 1,250 mg/ (Sodium Chloride) 275 mls @ 167 mls/hr IV Q12H [facility] Last Admin: 02/28/19 08:52 Dose: 167 mls/hr Sodium Chloride () 1,000 mls @ 100 mls/hr IV .Q10H [facility] Last Admin: 02/28/19 03:03 Dose: 100 mls/hr Insulin Human Lispro (Humalog Kwikpen (Bkc)) [address] [facility]; Protocol Last Admin: 02/28/19 06:31 Dose: Not Given Isosorbide Mononitrate (Imdur) [address] [facility] Last Admin: 02/28/19 08:53 Dose: 60 mg Lisinopril (Zestril) [address] [facility] Last Admin: 02/28/19 08:53 Dose: 20 mg Metformin HCl (Glucophage) 1,[address] [facility] Last Admin: 02/28/19 08:53 Dose: 1,000 mg Ondansetron HCl (Zofran) 4 mg IV Q8H PRN PRN PRN Reason: NAUSEA/VOMITING Oxycodone HCl (Oxyir) [address] [facility] Last Admin: 02/28/19 06:24 Dose: 20 mg Pregabalin (Lyrica) [address] [facility] Last Admin: 02/28/19 09:07 Dose: 225 mg Sodium Chloride () 5 - 15 ml IV UD PRN PRN Reason: SALINE FLUSH Medical Necessity - Tobacco Use Smoking Status: Heavy Smoker (>10/day) Tobacco Use: Secondhand, Cigarettes Assessment/Plan All Active Problems History of peripheral arterial disease (Acute) Sepsis (Acute) Cellulitis of left leg without foot (Acute) Left leg cellulitis (Acute) 68 y/o admitted with a complaint of shortness of breawth and LLE swelling and redness 1. Sepsis due to LLE cellulitis * admit to med surg with telemetry * SIRS criteria is 2/4 (fever and leucocytosis) * Leukocytosis has resolved and white cell count is down to 9. Fever has also resolved. * Blood cultures pending. Based on previous treatment for cellulitis in this patient, will switch antibiotics to IV cefazolin. * Will get duplex of the left lower extremity. * Tylenol for pain. * 2. CAD s/p stents: On carvedilol, aspirin and Plavix as well as Imdur. 3. Type 2 diabetes mellitus with peripheral neuropathy: * On metformin 1000mg twice daily. * Insulin sliding scale. * Accu-Cheks AC at bedtime. * Also on Lyrica and Percocet for pain. 4. COPD: On Symbicort. Breathing treatments with DuoNebs. 5. Chronic hypoxic respiratory failure: On 2 L of oxygen. Titrate to maintain oxygen saturation at >90% 6. Hypertension: On lisinopril. * DVT prophylaxis: Heparin Code Visit Inpatient E&M: 21961 [facility] L3
--- NOTE | 2019-02-28 09:30 | VDLE_ITS ---
Reason For Study: swelling Procedure LEFT Exam performed portable in patient room. GSV is normal. Technically difficult d/t pt being in pain CFV is compressible, spontaneous, phasic, from Cellulitis of left leg. competent, and demonstrates normal A preliminary report was called and/or faxed augmentation. to [facility]. FV is compressible, spontaneous, phasic, competent and demonstrates normal augmentation. POP V is compressible, spontaneous, phasic, competent and demonstrates normal augmentation. T/P Trunk is compressible. PTV is compressible. LT PerV is compressible. Interpretation Summary Deep veins of the left lower extremity are patent and compressible segmentally. There is no evidence of left lower extremity deep vein thrombosis. Valvular competence appears intact within the proximal deep venous system on the left . The left greater saphenous vein appears patent and compressible segmentally. Ordering Physician: Fariha Quiroga Referring Physician: JAVAD ROSALES Performed By: Milka Pappas RDCS, RVT
[2019-02-28] MEDS: Cefazolin 2 GM in 0.9% Normal Saline 100 ML IV ×2 (11:10→22:53)
[2019-02-28 11:56] LABS: Bedside Glucose 146 mg/dL (70-110)
--- NOTE | 2019-02-28 14:47 | CASEMGMT ---
Social Work Note SW received referral from COOKIE Trivedi for advanced directives. SW met with pt, introduced self and role at [facility]. Pt is alert and orientated x3. Pt took advanced directives documents, denied wanting to complete at this time. SW encouraged pt to speak with whom she wishes to name her agent before completing documents. SW provided pt with social service rac card and education on how to complete documents. Pt states understanding, denied additional needs or concerns at this time. Zarina Lucio COCOA BUTTER FILTER OPERATOR, M[employer]IM[employer] TECHNICIAN
[2019-02-28 17:20] LABS: Bedside Glucose 102 mg/dL (70-110)
--- NOTE | 2019-02-28 17:41 | NURSING ---
wound photo: LUPILLO
--- NOTE | 2019-02-28 17:42 | NURSING ---
wound photo: right foot plantar
--- NOTE | 2019-02-28 17:43 | NURSING ---
wound photo: right streeter
--- NOTE | 2019-02-28 17:43 | NURSING ---
wound photo: Left foot
[2019-02-28] MEDS: Atorvastatin Calcium 80 MG Tablet PO (22:53)
[2019-03-01 00:06] LABS: Bedside Glucose 121 mg/dL (70-110)
[2019-03-01 02:00] VITALS: PULSE 75
[2019-03-01] MEDS: 0.9% Normal Saline 1,000 ML 100 ML IV (03:23)
[2019-03-01 03:27] VITALS: BP 100/55; PULSE 60; RESP 18; TEMP 36.8; O2SAT 99
[2019-03-01] MEDS: oxyCODONE 5 MG Tablet 20 MG PO (05:47)
[2019-03-01] MEDS: Cefazolin 2 GM in 0.9% Normal Saline 100 ML IV (05:48)
[2019-03-01 06:00] VITALS: PULSE 77
[2019-03-01 06:50] LABS: Bedside Glucose 105 mg/dL (70-110)
[2019-03-01 07:18] VITALS: PULSE 62; RESP 16; O2SAT 92
[2019-03-01] MEDS: Albuterol 2.5 MG/3 ML VIAL.NEB. INHALATION (07:18)
[2019-03-01] MEDS: Budesonide Respules 0.5 MG/2 ML AMPUL.NEB. INHALATION (07:18)
[2019-03-01 07:29] VITALS: PULSE 63
[2019-03-01 07:49] LABS: Absolute Lymphocyte Count 1.27 X10^3/ul (0.83-4.51); Absolute Neutrophil Count 6.1 X10^3/uL (2.0-7.7); Basophil# 0.03 X10^3/uL; Basophil% 0.4 % (0-1); Eosinophil# 0.16 X10^3/uL; Hematocrit 30.4 % (37-47); Lymphocyte # 1.27 X10^3/ul (4.0); Lymphocyte % 15.6 % (19-41); Mean Corp Hgb Conc 29.6 g/gl (32-36); Mean Corpuscular Hgb 27.1 pg (27.0-32.0); Mean Corpuscular Volume 91.6 fL (81-99); Mean Platelet Vol. 10.8 fl (6.2-12.0); Monocyte% 7.4 % (0-10); Neutrophil # 6.07 X10^3/uL (2.7-7.7); Neutrophil % 74.5 % (47-70); Platelet Count 179 K/mm3 (150-450); RBC Distribution Width CV 17.7 % (11.6-14.6); RBC Distribution Width SD 57.3 fl (35.1-43.9); Red Blood Count 3.32 M/mm3 (4.2-5.4); White Blood Count 8.1 K/mm3 (4.4-11.0)
[2019-03-01 07:59] LABS: POSITIVE COUNT NO; POSITIVE DIFFERENTIAL NO; POSITIVE MORPHOLOGY NO
[2019-03-01 08:02] LABS: Anion Gap 1 (5-15); BUN 11 mg/dL (7-18); Calcium,Total 7.8 mg/dL (8.5-10.1); Chloride 111 mmol/L (98-107); Creatinine, Serum 0.74 mg/dL (0.55-1.02); EST Glomerular Filtration Rate 84 mL/min (>60); Est Glom Filt Rate - Afr Amer 102 mL/min (>60); Estimated Creatinine Clearance 47.79 ml/min; Glucose 100 mg/dL (74-106); Potassium 4.2 mmol/L (3.5-5.1); Sodium Level 138 mmol/L (136-145)
--- NOTE | 2019-03-01 09:55 | DCINST_ITS ---
- Discharge Diagnoses Current Active Problems: Current Active and Chronic Problems History of peripheral arterial disease (Acute) Sepsis (Acute) Cellulitis of left leg without foot (Acute) Neuropathy, diabetic (Chronic) Type 2 diabetes mellitus (Chronic) You will use the following diet at home:: Cardiac Your food should be the consistency of: Regular Your liquids should be the consistency of: Regular/Thin Discharge Activity: Return to Normal Activity Weight Bearing Status: Weight bearing as tolerated Call your doctor if you observe: Fever of 101 or Higher, Shortness of breath, Calf discomfort, Uncontrolled pain Instructions: Understanding Peripheral Artery Disease, Discharge Instructions for Cellulitis Additional Instructions: follow up with Dr Dietrich (vascular surgery) next Sunday03/05/19 at scheduled appointment Allergies/Adverse Reactions: Allergies diltiazem HCl [From Cardizem] Adverse Reaction (Mild, Verified 02/27/19 09:48) Swelling cephalexin [From Keflex] Adverse Reaction (Verified 02/27/19 11:04) Upset Stomach Medications to take at Discharge Aspirin E.C. [Ecotrin] 81 mg PO DAILY 09/07/14 Isosorbide Mononitrate [Isosorbide Mononitrate ER] 60 mg PO DAILY 09/07/14 Lisinopril [Zestril] 20 mg PO DAILY 09/07/14 metFORMIN HCl [Glucophage] 1,000 mg PO BIDCM 09/07/14 Atorvastatin Calcium [Lipitor] 80 mg PO QHS 03/19/16 Clopidogrel Bisulfate [Plavix] 75 mg PO DAILY 03/19/16 Pregabalin [Lyrica] 225 mg PO BID 03/19/16 Budesonide/Formoterol 160/4.5 [Symbicort 160/4.5 Mcg Inhaler (SP)] 2 puff INHALATION BID PRN 12/15/17 Carvedilol [Coreg (Beta Adriana)] 6.25 mg PO BID 12/15/17 Furosemide [Lasix] 40 mg PO BID 12/15/17 Oxycodone HCl/Acetaminophen [Oxycodone-Acetaminophen 10-325] 2 tab PO TID 02/27/19 Doxycycline 100 mg PO BID #10 capsule 03/01/19 The following prescriptions were given: Doxycycline 100 mg PO BID #10 capsule Primary Care Physician: Dale Vivar DO [Primary Care Provider] - Please follow up with your Primary Care Physician in: one week Test Results: Test results from this visit will be discussed in further detail at your follow- up appointment, if applicable. Proposed Discharge Date: 03/01/19
[2019-03-01 10:05] VITALS: BP 123/50; PULSE 70; RESP 18; TEMP 36.4; O2SAT 100
[2019-03-01] MEDS: Lisinopril 20 MG Tablet PO (10:06)
[2019-03-01] MEDS: Isosorbide Mononitrate 60 MG Tablet PO (10:06)
[2019-03-01] MEDS: Aspirin E.C. 81 MG Tablet PO (10:06)
[2019-03-01] MEDS: Clopidogrel Bisulfate 75 MG Tablet PO (10:06)
[2019-03-01] MEDS: metFORMIN HCl 1,000 MG Tablet 1000 MG PO (10:06)
[2019-03-01] MEDS: Pregabalin 75 MG Capsule 225 MG PO (10:06)
[2019-03-01] MEDS: Enoxaparin 40 MG/0.4 ML Syringe SC (10:07)
[2019-03-01] MEDS: Collagenase 30gm Tube 1 APPLIC TOPICAL (10:08)
--- NOTE | 2019-03-01 10:21 | NURSING ---
Patient and man at bedside very confrontational with this RN upon entering room. The patient began yelling at this nurse and waving her arms stating to get out unless I was there to discharge her. The man was observed to be changing the patient's wound dressings. I explained I needed to give AM meds, take vitals and perform an assessment. The patient did not want any of this completed and continued to yell. Voicing frustration about going to the bathroom at 0300 and that it took over 40 minutes for someone to see her. Active listening provided. The patient then stated give me my medicine. I said I had blood pressure meds and first had to assess her vitals. The patient sighed heavily and rolled eyes but did allow for vitals to be taken. Meds then given. I proceeded to tell her I would listen to her heart and lungs. She was arguing with the man with her dressing change and when asked to be quiet for a moment she said that was enough and I could not listen. She would not allow me to assess her wounds, I went to touch her left leg to feel the temperature with the back of my hands and she screamed and yelled I will kill you if you touch my leg The man stated the leg was still warmer than the right leg, but not hot. She did not allow for any further assessment. She was demanding to be discharge by 11. I informed her that I would contact the MD. She then yelled again, pointing her finger in my face saying GET OUT GET OUT GET OUT I again tried to speak but she again yelled GET OUT OF MY ROOM
--- NOTE | 2019-03-01 10:24 | DS.PCM_ITS ---
Discharge Date and Diagnosis Date of Admission: 02/27/19 Date of Discharge: 03/01/19 - Primary Discharge Diagnosis Active and Suspected Problems History of peripheral arterial disease (Acute) Sepsis (Acute) Cellulitis of left leg without foot (Acute) - Secondary Discharge Diagnosis Chronic Problems Coronary artery disease (Chronic) Status post stents Hypertension (Chronic) COPD (chronic obstructive pulmonary disease) (Chronic) Neuropathy, diabetic (Chronic) Type 2 diabetes mellitus (Chronic) Hospital Course and Treatment Imaging Results: The patient is a 68 year old F with an extensive past medical history as listed. She was admitted through the ED on 02/27/2019 with a complaint of mechanical fall as well as shortness of breath and weakness. Patient states she was trying to get up and fell. She had also noticed redness on the left lower extremity which started today and had gradually worsened. Patient has had recurrent episodes of cellulitis with the last 1 para EMR being in 2018. She admitted to fever and chills and also had nausea with dry mouth. She denied any chest pain or palpitations, dizziness, diarrhea vomiting. Review of systems otherwise negative. The ED, she was noted to be febrile with temperature of around 102. Vitals were otherwise stable and she was requiring 3 L of oxygen with her baseline being on 2 L of oxygen. White cell count was elevated at 14.5. She has been admitted to be managed for sepsis due to cellulitis of the left lower extremity. She was started on IV vancomycin and Zosyn. White cell count trended down to 9 with a lloyd of 8 at time of discharge. Duplex done was negative for any DVT. Antibiotics were transitioned to IV cefazolin. Patient's redness and swelling improved significantly. She did however have persistent digits with bluish discoloration which was due to peripheral artery disease. This was chronic and was due to follow-up with vascular surgery about 5 days time. Patient remained stable and was discharged home on 03/01/2019 with a prescription for p.o. doxycycline. She is follow-up with her primary care doctor and also with vascular surgery -Patient seen and examined prior to discharge. She had no complaints and felt very well. She was back to baseline 2 L of oxygen. Review of systems otherwise negative. Redness and swelling had gone down significantly. Labs and vitals reviewed. Home medication reviewed and reconciled. o/e: Vital Signs Height 5 ft 4 in Weight: 272 lb 0.807 oz Weight in Pounds 272.1 lbs Pulse Ox 100 Temperature 97.6 F Pulse Rate 70 Respiratory Rate 18 Blood Pressure [BP] 101/53 Blood Pressure 123/50 Blood Pressure Position [BP] Left Lateral Blood Pressure Position Sitting General: Alert, Oriented x3, Cooperative, No apparent distress HEENT: Atraumatic, PERRLA, EOMI, Normocephalic Oral: Dry Mucosa Neck: Supple, No JVD, Negative Carotid Bruits Lungs: - - diminished breath sounds bibasally, no wheezes or crackles. on 2L of oxygen Cardiovascular: Regular rate, Regular Rhythm, Normal S1, Normal S2, No murmurs Abdomen: Bowel Sounds Present, Soft, Non Tender, Non-Distended, No Hepato- splenomegaly Extremities: No clubbing, No cyanosis, No edema, - - toes bilaterally are blue and cool to touch, due to chronic PAD. DP pulse diminished but palpable Skin: - - redness, differential warmth and mild tendnernes of LLE, from ankle to just below knee have improved significantly Musculoskeletal: No Tenderness to Palpation of Joints or Extremities Lymphatic: No Cervical, Supraclavicular, or Inguinal Adenopathy Neurological: Cranial nerves II-XII grossly intact, Neuro grossly intact, Motor Exam 5/5 strength throughout Psych/Mental Status: Normal Affect, Appropriate, Alert and oriented to time, place, person, mood and affect Plan as above. Consultations 02/27/19 13:34 Consult: Onc/Wound/facility maintenance mechanic Routine Comment: Operations: None Summary of Care Provided: The patient is a 68 year old F [] - Physical Exam Vital Signs Temp Pulse Resp BP Pulse Ox 97.6 F L 70 18 123/50 H 100 03/01/19 10:05 03/01/19 10:05 03/01/19 10:05 03/01/19 10:05 03/01/19 10:05 Oxygen Flow Rate (L/min) 2 Oxygen Delivery Method Nasal Cannula Weight: 272 lb 0.807 oz Body Mass Index (BMI) 46.7 Intake and Output for Last 24 Hours 02/27/19 02/28/19 03/01/19 23:59 23:59 23:59 Intake Total 4178 / 4178 2395 / 2395 Output Total 1450 / 1450 650 / 650 Balance 2728 / 2728 1745 / 1745 Laboratory Tests Past 24 Hrs 03/01/19 03/01/19 06:47 06:47 WBC 8.1 RBC 3.32 L Hgb 9.0 L Hct 30.4 L MCV 91.6 MCH 27.1 MCHC 29.6 L RDW 17.7 H RDW Differential 57.3 H Plt Count 179 MPV 10.8 Immature Gran % (Auto) 0.100 Neut % (Auto) 74.5 H Lymph % (Auto) 15.6 L [place] % (Auto) 7.4 Eos % (Auto) 2.0 Baso % (Auto) 0.4 Absolute Neuts (auto) 6.1 Absolute Lymphs (auto) 1.27 Total Counted Not Reportable Sodium 138 Potassium 4.2 Chloride 111 H Carbon Dioxide 26.0 Anion Gap 1 L BUN 11 Creatinine 0.74 Estim Creat Clear Calc 47.79 Est GFR (MDRD) Af Amer 102 Est GFR (MDRD) Non-Af 84 BUN/Creatinine Ratio 15.0 Glucose 100 Calcium 7.8 L POC Glucose 03/01/19 02/28/19 02/28/19 06:42 23:02 17:10 POC Glucose 105 121 H 102 02/28/19 11:49 POC Glucose 146 H Discharge Diet: Low fat/ Low Cholesterol Discharge Activity: Return to Normal Activity Weight Bearing Status: Weight bearing as tolerated Call your doctor if you observe: Fever of 101 or Higher, Shortness of breath, Calf discomfort, Uncontrolled pain Home Medications: Medications to take at Discharge Aspirin E.C. [Ecotrin] 81 mg PO DAILY 09/07/14 Isosorbide Mononitrate [Isosorbide Mononitrate ER] 60 mg PO DAILY 09/07/14 Lisinopril [Zestril] 20 mg PO DAILY 09/07/14 metFORMIN HCl [Glucophage] 1,000 mg PO BIDCM 09/07/14 Atorvastatin Calcium [Lipitor] 80 mg PO QHS 03/19/16 Clopidogrel Bisulfate [Plavix] 75 mg PO DAILY 03/19/16 Pregabalin [Lyrica] 225 mg PO BID 03/19/16 Budesonide/Formoterol 160/4.5 [Symbicort 160/4.5 Mcg Inhaler (SP)] 2 puff INHALATION BID PRN 12/15/17 Carvedilol [Coreg (Beta Adriana)] 6.25 mg PO BID 12/15/17 Furosemide [Lasix] 40 mg PO BID 12/15/17 Oxycodone HCl/Acetaminophen [Oxycodone-Acetaminophen 10-325] 2 tab PO TID 02/27/19 Doxycycline 100 mg PO BID #10 capsule 03/01/19 Following Prescrptions Were Given to Patient: Doxycycline 100 mg PO BID #10 capsule Primary Care Physician: Dale Vivar DO [Primary Care Provider] - Please follow up with your Primary Care Physician in: one week Patient Instructions: Understanding Peripheral Artery Disease, Discharge Instructions for Cellulitis Disposition: Home Minutes spent on discharge:: 40 Patient Condition:: Stable Medical Necessity - Tobacco Use Smoking Status: Heavy Smoker (>10/day) Tobacco Use: Secondhand, Cigarettes Meaningful Use Info Meaningful Use Diagnoses (Choose all that apply): None applicable Code Visit Inpatient E&M: 90816 [facility]
--- NOTE | 2019-03-04 14:30 | CASEMGMT ---
COOKIE COTA Discharge Follow-Up Phone Call. Lacdaisha: Elisa Strata: 3 Discharge Date: 03/01/19 Adm Dx: Sepsis d/t cellulitis. Call to pt to inquire about how she has been doing since being discharged from the hospital. Pt stated, I'm doing good. Pt stated she was able to car pick up driver the Doxycycline. She states when she went to [facility] pharmacy they gave her the Doxycyline and also a prescription for Cephalexin. Pt states she is not able to take Cephalexin d/t it causes N/V and therefore she has not been taking it. Pt states she also noticed on the discharge instructions that only Doxycyline is listed to be taken so she is only taking the Doxycycline as instructed. COOKIE COTA informed pt that was the correct thing to do and instructed her to not take the Cephalexin, as the physician had cancelled it and changed it to Doxycyline. Pt denies having any other questions about the other medications or d/c instructions. Pt states [facility] visiting nurse has contacted her and they will be out to see her on Sunday. She states [facility] has bought out [facility] and that her care will then be under [facility] as of Sunday. Pt states she has appt with her vascular surgeon tomorrow and appt with Dr Vivar on 03/12. She denies having any questions or concerns. COOKIE COTA thanked pt for choosing [facility]. Mana CARR RN, CM
== END 2019-03-01 11:35 | disposition home or self-care (01) | DRG 872 ==
LOC: ED 12:01 → MS3 12:28
PROVIDERS: Admitting Provider Student in an Organized Health Care Education/Training Program; Emergency Provider Emergency Medicine; Family Provider Student in an Organized Health Care Education/Training Program; PCP Student in an Organized Health Care Education/Training Program; Referring Provider Student in an Organized Health Care Education/Training Program; Visit Provider Student in an Organized Health Care Education/Training Program
DX: A41.9 Sepsis, unspecified organism (principal); L03.116 Cellulitis of left lower limb; Z68.42 Body mass index [BMI] 45.0-49.9, adult; J96.11 Chronic respiratory failure with hypoxia; E11.42 Type 2 diabetes mellitus with diabetic polyneuropathy; E11.51 Type 2 diabetes mellitus with diabetic peripheral angiopathy without gangrene; J44.9 Chronic obstructive pulmonary disease, unspecified; I25.10 Atherosclerotic heart disease of native coronary artery without angina pectoris; E66.9 Obesity, unspecified; I10 Essential (primary) hypertension; Z79.82 Long term (current) use of aspirin; Z79.84 Long term (current) use of oral hypoglycemic drugs; Z79.899 Other long term (current) drug therapy; F17.200 Nicotine dependence, unspecified, uncomplicated; Z95.5 Presence of coronary angioplasty implant and graft; Z79.02 Long term (current) use of antithrombotics/antiplatelets; Z99.81 Dependence on supplemental oxygen
CPT/HCPCS: 36415; 71045; 80048; 80053; 82962; 83605; 85025; 85610; 85730; 87040; 93005; 93971; 94640; 97162; 97165; 97530; 97535; 99285; J7030; J7040; J7050; A4216

== ENCOUNTER → 2019-03-18 | Outpatient (CLI) | payer MEDICARE, MEDICAID, SELFPAY ==
[2019-02-27 13:35] VITALS: BMI 46.7
--- NOTE | 2019-03-18 15:24 | CT_ITS ---
STUDY: CTA OF THE ABDOMINAL AORTA AND BILATERAL LOWER EXTREMITIES REASON FOR EXAM: Female, 68 years old. Diminished pulses left foot, nonhealing wounds bilateral feet RADIATION DOSAGE (If Supplied By Facility): CTDIvol = ( 10.27 ) mGy, DLP = ( 1697.37 ) mGycm TECHNIQUE: Axial CT angiography multi-detector data acquisition was obtained from the lower chest to the feet following intravenous administration of 100 IV Isovue 370. Axial images and MIP images were reconstructed from the axial data set. Post-processing of the angiographic images was performed, with multiplanar reformation and 3D reconstruction. Individualized dose optimization techniques were used for this CT. TECHNICAL QUALITY: Good COMPARISON: None. Descriptors of Narrowing: None (0%) Mild (< 50%) Moderate (50-70%) Severe (70-90%) Subtotal/Total Occlusion (90-100%) Non-Evaluable (technically non-diagnostic FINDINGS: Extensive calcified plaques are present throughout the arteries of the abdomen, pelvis, and lower extremities. Otherwise: Abdominal aorta: No demonstrated narrowing. 3.3 cm infrarenal abdominal aortic aneurysm. Heavy calcified plaque is present at the origin of the celiac axis with high-grade stenosis and probable near occlusion. Superior mesenteric artery is patent. Inferior mesenteric artery: No demonstrated narrowing. Right renal artery(arteries): No demonstrated narrowing. Left renal artery(arteries): Heavy calcified plaque at the origin of the left renal artery with underlying near occlusion. Right common iliac artery: No demonstrated narrowing. Right external iliac artery: No demonstrated narrowing. Right internal iliac artery: No demonstrated narrowing. Left common iliac artery: No demonstrated narrowing. Left external iliac artery: No demonstrated narrowing. Left internal iliac artery: No demonstrated narrowing. RIGHT LOWER EXTREMITY Right common femoral artery: No demonstrated narrowing. Right profundus femoris: No demonstrated narrowing. Right superficial femoral: No demonstrated narrowing. Right popliteal artery: No demonstrated narrowing. Right tibioperoneal trunk: No demonstrated narrowing. The trifurcation arteries are patent. LEFT LOWER EXTREMITY Left common femoral artery: No demonstrated narrowing. Left profundus femoris: No demonstrated narrowing. Left superficial femoral: The midportion of the left superficial femoral artery is occluded for a length of 10 cm. Left popliteal artery: Heavy eccentric soft plaque in the popliteal artery with focal near occlusion. Left tibioperoneal trunk: No demonstrated narrowing. Left anterior tibial artery: No demonstrated narrowing. Left posterior tibial artery: No demonstrated narrowing. Left peroneal artery: No demonstrated narrowing. Bilateral subcutaneous lower extremity edema may be cardiogenic in nature, although cellulitis could also have this appearance. Multiple clips on the left. Median sternotomy wires and CABG clips. Distended gallbladder containing sludge and/or stones. Colonic diverticulosis. Clips in the right groin. CT/CTA Abd w/Runoff W/WO Contrast IMPRESSION: High-grade stenosis and probable near occlusion of the origin of the celiac axis. Near occlusion of the origin of the left renal artery. The midportion of the left superficial femoral artery is occluded for a length of 10 cm. Focal near occlusion of the left popliteal artery. Distended gallbladder containing sludge and/or stones. 3.3 cm infrarenal abdominal aortic aneurysm. Electronically Signed: Jose Ham MD at 18:07 EDT Tel , Service support ,
== END | disposition home or self-care (01) ==
LOC: CT 14:52
PROVIDERS: Family Provider Student in an Organized Health Care Education/Training Program; PCP Student in an Organized Health Care Education/Training Program; Referring Provider Surgery Vascular Surgery; Visit Provider Surgery Vascular Surgery
DX: R09.89 Other specified symptoms and signs involving the circulatory and respiratory systems (principal)
CPT/HCPCS: 75635; Q9967

== ENCOUNTER 2019-09-28 01:04 | Inpatient (IN) | payer MEDICARE, MEDICAID, SELFPAY ==
[2019-02-27 13:35] VITALS: BMI 46.7
[2019-09-28] VITALS (25 sets, daily range): BP systolic 76–123; BP diastolic 44–67; PULSE 71–102; RESP 12–24; TEMP 36.3–37.3; O2SAT 93–100; BMI 50.9; BMI 49.1
--- NOTE | 2019-09-28 01:36 | EKG12_ITS ---
Test Reason : Blood Pressure : / mmHG Vent. Rate : 068 BPM Atrial Rate : 300 BPM P-R Int : 000 ms QRS Dur : 100 ms QT Int : 412 ms P-R-T Axes : 000 010 077 degrees QTc Int : 438 ms Atrial fibrillation Abnormal ECG Confirmed by SEMAJ MEEK, TEOFILO ([id number]), video news editor WILMAR VILLARREAL ([id number]) on 10/01/2019 11:40:27 AM Referred By: Adrien Swartz Confirmed By:TEOFILO CHA MD
[2019-09-28 01:45] LABS: Absolute Lymphocyte Count 2.06 X10^3/uL (0.83-4.51); Absolute Neutrophil Count 7.8 X10^3/uL (2.0-7.7); Basophil# 0.07 X10^3/uL; Basophil% 0.6 % (0-1); Eosinophil# 0.27 X10^3/uL; Eosinophils% 2.4 % (0-5); Hematocrit 30.2 % (37-47); Hemoglobin 9.3 g/dL (12.0-15.0); Lymphocyte # 2.06 X10^3/ul (4.0); Lymphocyte % 18.5 % (19-41); Mean Corp Hgb Conc 30.8 g/dL (32-36); Mean Corpuscular Hgb 29.2 pg (27.0-32.0); Mean Corpuscular Volume 94.7 fL (81-99); Mean Platelet Vol. 10.4 fl (6.2-12.0); Monocyte# 0.83 X10^3/uL; Monocyte% 7.5 % (0-10); NRBC Flagged by Analyzer 0 % (0-5); Neutrophil # 7.83 X10^3/uL (2.7-7.7); Neutrophil % 70.4 % (47-70); Platelet Count 236 K/mm3 (150-450); RBC Distribution Width CV 16.5 % (11.6-14.6); RBC Distribution Width SD 56.6 fl (35.1-43.9); Red Blood Count 3.19 M/mm3 (4.2-5.4); White Blood Count 11.1 K/mm3 (4.4-11.0)
--- NOTE | 2019-09-28 01:48 | ED.VIS.DYS ---
History of Present Illness Chief Complaint: Shortness of Breath Informant: Patient, EMS Onset: Days Activity at onset: Exertion Timing: Continuous Quality: Dyspnea on exertion, Wheezing Associated Symptoms: Cough Chest Pain: None Narrative: Patient is a 69-year-old female with history of CHF, coronary artery disease and COPD presenting with increased swelling of her lower extremities and shortness of breath. Patient states that increase swelling of her bilateral legs for the past 4 to 5 days. She knows she has pain in her right lower extremity. She denies any injury. She denies any worsening redness. She notes for the past 2 days she is had increased shortness of breath. She states she is having increased dyspnea on exertion. She does have wheezing. She is been using her breathing treatments with no significant provement. Patient does wear 3 L at baseline but turned it up today because of her symptoms. When EMS arrived patient's O2 saturation on her baseline oxygen was in the 80s. Patient denies associated chest pain, nausea, vomiting, abdominal pain or fever/chills. PE Risk Factors: Negative for: Cancer, OCP + Smoking + > 35, Prior DVT or PE, Recent immobilization, Recent surgery, Recent travel Past Medical History - Allergies and Home Meds Allergies/Adverse Reactions: Allergies diltiazem HCl [From Cardizem] Adverse Reaction (Mild, Verified 02/27/19 09:48) Swelling cephalexin [From Keflex] Adverse Reaction (Verified 02/27/19 11:04) Upset Stomach Past Medical History: - - Peripheral arterial disease, coronary artery disease, hypertension, COPD, diabetic neuropathy, CHF Surgical History: coronary bypass surgery, herniorrhaphy, - - cardiac stent placement, left elbow surgery for nerve entrapment Smoking Status: Current every day smoker - Family History Maternal Family History: Reports: Heart Disease, Hypertension Paternal Family History: Reports: Heart Disease, Hypertension Review of Systems General: Denies: Chills, Fever, Sweats Eyes: Denies: Visual changes - bilaterally, Diplopia ENT: Denies: Rhinorrhea, Sore throat Cardiovascular: Denies: Chest pain, Palpitations Respiratory: Reports: Dyspnea, Cough, Sputum, Dyspnea on exertion Gastrointestinal: Denies: Abdominal pain, Nausea, Vomiting, Diarrhea, Melena, Hematochezia Genitourinary: Denies: Dysuria, Hematuria, Frequency Musculoskeletal: Reports: Swelling, Extremity Pain - right leg . Denies: Back pain Skin: Denies: Rash, Wounds Neurological: Denies: Headache, Weakness, Numbness Physical Exam Vital Signs/Narrative: Vital Signs Temp Pulse Resp BP Pulse Ox 09/28/19 01:39 80/50 L 09/28/19 01:06 98.1 F 72 18 95/54 L 97 Inital Vital Signs reviewed: Yes General: Well nourished, Well developed, No Acute Distress Head: Normocephalic, Atraumatic Eyes: Perrl, EOMI ENT: Moist mucous membranes, No rhinorrhea, TM's clear Neck: Supple, Nontender. Negative for: No JVD Cardiovascular: Regular rate, Regular rhythm, No murmurs Respiratory: No distress, Chest nontender, Wheezing - bilateral , Diminished - left base , Decreased Air Movement Abdomen: Soft, Nontender, Nondistended, Normal bowel sounds Back: Nontender, Normal Inspection Extremities: Tenderness - Right lower leg diffusely, Edema - Pain edema above the knee bilaterally Skin: No rash, - - Skin changes of the bilateral lower extremities however there is more redness of the right lower extremity, anterior streeter. Patient has weeping from her bilateral legs. Neurological: Alert, Oriented x3, Cranial nerves II-XII grossly intact, Normal Strength, Normal Sensation Psychological: Normal affect, Normal Mood Diagnostic/Tx/Re-eval Chest X-Ray - ED: 1 View, Read by ED Physician, Read by Radiologist, - - Pulmonary hypertension Clinical Impression(s) from Imaging Studies Chest X-Ray 09/28/19 02:10 IMPRESSION: There is prominence of the pulmonary hilar arteries without peripheral pulmonary vascular congestion, suggesting pulmonary hypertension. Electronically Signed: Temi Echols, at 4:05 EST Tel , Service support , Chest CTA 09/28/19 03:07 IMPRESSION: No pulmonary embolus detected. Individualized dose optimization techniques were used for this CT. at 0418 Reported and signed by: Mami Vasquez MD Electronically Signed: Mami Vasquez MD at 4:18 EST Tel , Service support , Laboratory Data 09/28/19 09/28/19 09/28/19 01:15 01:15 01:15 WBC 11.1 H RBC 3.19 L Hgb 9.3 L Hct 30.2 L MCV 94.7 MCH 29.2 MCHC 30.8 L RDW Std Deviation 56.6 H RDW Coeff of Akira 16.5 H Plt Count 236 MPV 10.4 Immature Gran % (Auto) 0.600 Neut % (Auto) 70.4 H Lymph % (Auto) 18.5 L [place] % (Auto) 7.5 Eos % (Auto) 2.4 Baso % (Auto) 0.6 Absolute Neuts (auto) 7.8 H Absolute Lymphs (auto) 2.06 Nucleated RBC % 0 Sodium 134 L Potassium 4.8 Chloride 102 Carbon Dioxide 29.0 Anion Gap 3 L BUN 42 H Creatinine 1.26 H Estim Creat Clear Calc 37.41 Est GFR (MDRD) Af Amer 54 L Est GFR (MDRD) Non-Af 45 L BUN/Creatinine Ratio 33.3 H Glucose 111 H Calcium 9.6 Troponin I < 0.015 B-Natriuretic Peptide 607.4 H - Rhythm Strip Rhythm Strip: Sinus arrhythmia Rate: 71 Ectopy: PAC(s) - EKG Initial EKG Interpretation: Sinus Arrythmia, - - Sinus arrhythmia at a rate of 71Normal axisNormal ST segmentsT wave inversion in lead V2No significant change compared to prior EKG on 02/27/2019Of note machine read was of atrial fibrillation however I suspect she has low amplitude and is actually sinus arrhythmia Treatment - Dyspnea: Oxygen, Albuterol - Medical Decision Making Patient is evaluated for worsening dyspnea on exertion and shortness of breath. On arrival she is mildly hypotensive but does have significant lower extremity edema. She does have increased pain of the right lower extremity. Patient has wheezing and diminished breath sounds but do not appreciate any crackles or JVD. She is initially given a 500 cc bolus secondary to her hypotension. Troponin is normal however her proBNP is elevated at 607. Her creatinine is mildly elevated at 1.22. Her baseline seems to be closer to 0.7. Patient is anemic but this is at her baseline.White blood cell count is only minimally elevated 11.1. She does not have an obvious source of infection. She does not have findings consistent with pneumonia or cellulitis. Chest x-ray shows pulmonary hypertension. I did obtain a CTA for concern of PE. This does not show any PE or other acute pathology. Flu swab is negative. Patient's blood pressure improves with a small fluid bolus. She does have peripheral signs of fluid overload however I suspect she is mildly intravascularly depleted. Patient states she does have a history of low blood pressure with a normal systolic of 90-100. As her blood pressures normalized I did start her on Lasix as I suspect her cause of her shortness of breath/dyspnea on exertion is fluid overload. Patient initially tolerated well however when she got up to use the restroom she became hypotensive again. She is symptomatic with shortness of breath and tachypnea. She does not have any change in mentation. Patient's oxygen is turned back up and her blood pressure normalizes again. Patient will be admitted to PCU for further fluid management and respiratory monitoring. As blood pressure continues to stay at 100 systolic I believe she is still stable for PCU. Discussed with hospitalist, Dr. Jurado, who is agreeable with this plan. ED Disposition - Plan for ED Patient: Disposition: Acute Care Hospital [facility] Diagnosis: Acute exacerbation of CHF (congestive heart failure), POWELL (dyspnea on exertion)
[2019-09-28] MEDS: Ipratropium/Albuterol Sulfate 3 ML AMPUL.NEB INHALATION ×5 (01:59→22:01)
[2019-09-28 02:03] LABS: Anion Gap 3 (5-15); BUN 42 mg/dL (7-18); BUN/Creat Ratio 33.3 RATIO (10-20); Calcium,Total 9.6 mg/dL (8.5-10.1); Chloride 102 mmol/L (98-107); Creatinine, Serum 1.26 mg/dL (0.55-1.02); EST Glomerular Filtration Rate 45 mL/min (>60); Est Glom Filt Rate - Afr Amer 54 mL/min (>60); Estimated Creatinine Clearance 37.41 ml/min; Glucose 111 mg/dL (74-106); Potassium 4.8 mmol/L (3.5-5.1); Sodium Level 134 mmol/L (136-145)
--- NOTE | 2019-09-28 02:10 | RAD_ITS ---
STUDY: X-RAY CHEST REASON FOR EXAM: Female, 69 years old. SOB TECHNIQUE: Single AP portable view of the chest. COMPARISON: None. FINDINGS: The lungs are clear and expanded. There is no demonstrated pleural abnormality. Sternal cerclage wires and vascular clips are present from a prior sternotomy and coronary artery bypass graft procedure (CABG). Normal mediastinum and theresa. There is prominence of the pulmonary hilar arteries without peripheral pulmonary vascular congestion, suggesting pulmonary hypertension. Normal visualized aortic arch and descending thoracic aorta. Normal visualized thoracic spine. There is degenerative osteoarthritis of the bilateral shoulders. There is no demonstrated abnormality of the visualized soft tissue structures of the upper abdomen. RAD/Chest 1 View (Portable) IMPRESSION: There is prominence of the pulmonary hilar arteries without peripheral pulmonary vascular congestion, suggesting pulmonary hypertension. Electronically Signed: Temi Echols, at 4:05 EST Tel , Service support ,
[2019-09-28 02:15] LABS: BNP,B-Type NATRIURETIC PEPTIDE 607.4 pg/mL (0-100)
--- NOTE | 2019-09-28 03:07 | CT_ITS ---
HISTORY: SOB. Hx of HTN, COPD, CAD, diabetes-Metformin and heart stents. ADDITIONAL HISTORY: None provided. TECHNIQUE: CT angiogram images of the chest were obtained with 100 mL Isovue-370 IV contrast as per pulmonary angiogram protocol. 3D MIP images used to aid in evaluation for pulmonary embolism. Number of images including paperwork: 1340 A radiation dose optimization technique was used for this scan. COMPARISON: No previous chest CT. FINDINGS: PULMONARY ARTERIES: No pulmonary arterial filling defects. Enlarged central pulmonary arteries. Main pulmonary artery 4.3 cm. AORTA AND GREAT VESSELS: No dissection. Atherosclerotic plaque and vascular tortuosity. HEART/PERICARDIUM: Mildly enlarged heart. Coronary calcifications and CABG changes. MEDIASTINUM: Unremarkable. ADENOPATHY: No pathologic appearing adenopathy. THYROID: Unremarkable visualized portions. LUNG PARENCHYMA: No consolidation or mass. Right hemidiaphragm elevation. Bandlike opacities at the lung bases suggestive of subsegmental atelectasis versus scarring. PLEURAL SPACES: Unremarkable. UPPER ABDOMEN: Small fat-containing hernia in the epigastrium.. OSSEOUS AND SOFT TISSUE STRUCTURES: No acute skeletal findings. Degenerative changes. CT/CTA Chest W/WO Contrast IMPRESSION: No pulmonary embolus detected. Individualized dose optimization techniques were used for this CT. at 0418 Reported and signed by: Mami Vasquez MD Electronically Signed: Mami Vasquez MD at 4:18 EST Tel , Service support ,
--- NOTE | 2019-09-28 04:26 | HP.PCM_ITS ---
Problem List (1) Acute exacerbation of CHF (congestive heart failure) Status: Chronic (2) History of peripheral arterial disease Status: Chronic (3) POWELL (dyspnea on exertion) Status: Acute (4) Coronary artery disease Status: Chronic Comment: Status post stents (5) Hypertension Status: Chronic (6) COPD (chronic obstructive pulmonary disease) Status: Chronic (7) Neuropathy, diabetic Status: Chronic (8) Type 2 diabetes mellitus Status: Chronic History of Present Illness Date of Admission: 09/28/19 Chief Complaint: sob The patient is a 69 year old F with a significant history of peripheral artery disease; tobacco abuse; morbid obesity; COPD; diabetes mellitus with neuropathy who presents at emergency department with progressively worsening shortness of breath that started about 2 days ago. Associated with symptoms is bilateral leg swelling. She reports that she has a history of cellulitis and swelling in left leg and that her right leg is her better leg. However she has noticed increased swelling in her bilateral legs with right worse than left. She reports seepage in the left leg. Associated with her symptoms is orthopnea and proximal nocturnal dyspnea. She is on chronic home oxygen of 3 L. She denies any weight change. Previously she was on BiPAP/CPAP but because she developed nasal congestion and because she was not instructed that the machine could be cleaned she stopped using the BiPAP/CPAP. Past Medical History Past Medical History (Chronic Problems): Chronic Problems History of peripheral arterial disease (Chronic) Acute exacerbation of CHF (congestive heart failure) (Chronic) Coronary artery disease (Chronic) Status post stents Hypertension (Chronic) COPD (chronic obstructive pulmonary disease) (Chronic) Neuropathy, diabetic (Chronic) Type 2 diabetes mellitus (Chronic) Allergies diltiazem HCl [From Cardizem] Adverse Reaction (Mild, Verified 02/27/19 09:48) Swelling cephalexin [From Keflex] Adverse Reaction (Verified 02/27/19 11:04) Upset Stomach Home Medications: Ambulatory Orders Medication Instructions Recorded Aspirin E.C. [Ecotrin] 81 mg PO DAILY 09/07/14 Isosorbide Mononitrate [Isosorbide 60 mg PO DAILY 09/07/14 Mononitrate ER] Lisinopril [Zestril] 20 mg PO DAILY 09/07/14 metFORMIN HCl [Glucophage] 1,000 mg PO BID 09/07/14 Atorvastatin Calcium [Lipitor] 80 mg PO QHS 03/19/16 Clopidogrel Bisulfate [Plavix] 75 mg PO DAILY 03/19/16 Pregabalin [Lyrica] 225 mg PO BID 03/19/16 Budesonide/Formoterol 160/4.5 2 puff INHALATION BID PRN 12/15/17 [Symbicort 160/4.5 Mcg Inhaler (SP)] Carvedilol [Coreg (Beta Adriana)] 12.5 mg PO BID 12/15/17 Furosemide [Lasix] 40 mg PO BID 12/15/17 Oxycodone HCl/Acetaminophen 2 tab PO TID 02/27/19 [Oxycodone-Acetaminophen 10-325] Albuterol Inhaler [Ventolin Hfa] 2 puff IH Q4H PRN PRN 09/28/19 Tiotropium [place] [Spiriva] 18 mcg IH DAILY 09/28/19 Surgical History: coronary bypass surgery, herniorrhaphy, - - cardiac stent placement, left elbow surgery for nerve entrapment Psychiatric History: No pertinent psych hx NIGHT TIME NANNY History: No pertinent NIGHT TIME NANNY history Lives: Spouse/ Significant Other Smoking Status: Current every day smoker Tobacco Use: Cigarettes Drugs: Marijuana - *Family History Maternal History Items: Heart Disease, Hypertension Paternal History Items: Heart Disease, Hypertension Review of Systems Constitutional: Denies: Chills, Fever, Weight Change HEENT: Denies: Head Aches, Sinus Congestion, Sinus Drainage Cardiovascular: Reports: Edema, Orthopnea, Paroxysmal Noc. Dyspnea. Denies: Chest Pain, Palpitations Respiratory: Reports: Shortness of Breath. Denies: Cough Gastrointestinal: Denies: Abdominal Pain, Nausea, Vomiting Genitourinary: Denies: Dysuria Musculoskeletal: Denies: Joint Pain, Joint Tenderness Skin: Reports: Skin Changes - Scabbed area on left leg, chronic. Denies: Rash, Wounds Neurological: Denies: Numbness, Tingling, Focal weakness Psychiatric: Denies: Anxiety, Depression, Homicidal Ideations, Suicidal Ideations Hematologic/ Lymphatic: Denies: Easy Bruising, Easy Bleeding VTE Information - Inpt Only VTE Present on Admission: No VTE Mechan Device Prophylaxis: None VTE Pharm Prophylaxis ordered?: Yes Patient Problems: Active and Suspected Problems POWELL (dyspnea on exertion) (Acute) - Physical Exam Vitals/I&O's: Vital Signs Temp Pulse Resp BP Pulse Ox 98.1 F 72 12 96/46 L 99 01/05/20 01:06 09/28/19 03:47 09/28/19 03:47 09/28/19 03:47 09/28/19 03:47 Oxygen Flow Rate (L/min) 4 Oxygen Delivery Method Nasal Cannula Weight: 134.6 kg Body Mass Index (BMI) 50.9 Intake and Output for Last 24 Hours 09/26/19 09/27/19 09/28/19 23:59 23:59 23:59 Intake Total 500 / 500 Balance 500 / 500 General: Alert, Oriented x3, Cooperative HEENT: Atraumatic, PERRLA, EOMI, Normocephalic Neck: Supple, No JVD, Negative Carotid Bruits Lungs: No rhonchi, No rales, Wheezes Cardiovascular: Regular rate, Normal S1, Normal S2, No murmurs Abdomen: Bowel Sounds Present, Soft, Non Tender Extremities: Capillary Refill Less than 3 Seconds, Edema - Bilateral legs. Right leg worse than left. Clear fluid from left leg. Skin: No rashes, No breakdown, - - Scabbed area on left leg. Musculoskeletal: No Tenderness to Palpation of Joints or Extremities Neurological: Cranial nerves II-XII grossly intact Psych/Mental Status: Anxious Microbiology Past 72 Hours 09/28/19 01:50 Mucosa - Nasopharyngeal Influenza Types A,B Direct FA (RYANNE) - Final Laboratory Results 09/28/19 01:15: WBC 11.1 H, RBC 3.19 L, Hgb 9.3 L, Hct 30.2 L, MCV 94.7, MCH 29.2, MCHC 30.8 L, RDW Std Deviation 56.6 H, RDW Coeff of Akira 16.5 H, Plt Count 236, MPV 10.4, Immature Gran % (Auto) 0.600, Neut % (Auto) 70.4 H, Lymph % (Auto) 18.5 L, [place] % (Auto) 7.5, Eos % (Auto) 2.4, Baso % (Auto) 0.6, Absolute Neuts (auto) 7.8 H, Absolute Lymphs (auto) 2.06, Nucleated RBC % 0 09/28/19 01:15: Sodium 134 L, Potassium 4.8, Chloride 102, Carbon Dioxide 29.0, Anion Gap 3 L, BUN 42 H, Creatinine 1.26 H, Estim Creat Clear Calc 37.41, Est GFR (MDRD) Af Amer 54 L, Est GFR (MDRD) Non-Af 45 L, BUN/Creatinine Ratio 33.3 H , Glucose 111 H, Calcium 9.6, Troponin I < 0.015 09/28/19 01:15: B-Natriuretic Peptide 607.4 H Assessment/Plan All Active Problems POWELL (dyspnea on exertion) (Acute) The patient is a 69 year old F with a significant history of peripheral artery disease; tobacco abuse; morbid obesity; COPD; pulmonary hypertension; diabetes mellitus with neuropathy who presents emergency department with progressively worsening shortness of breath; bilateral leg swelling; orthopnea and proximal nocturnal dyspnea consistent with acute elevation of heart failure and pulmonary hypertension. Acute exacerbation of heart failure and pulmonary hypertension Echocardiogram on 09/07/2014 showed normal LVEF: Mild to moderate aortic stenosis. CXR showed prominence of pulmonary arteries without peripheral pulmonary vascular congestion suggesting pulmonary hypertension. Chest CTA did not show any embolus. Place on monitored bed on PCU Weight on admission to the floor; and then daily Strict I&O's EKG interpreted as a controlled A. fib by machine. Appears to have some P waves. We will repeat EKG. Placed on telemetry. BNP 607.4 Patient had hypotension at the emergency department and received IV fluid bolus. Thereafter patient was given Lasix IV at the ED. Patient reports a history of low blood pressure. Will put on Lasix drip. Monitor electrolytes and renal function Trend blood pressure Titrate diuretics with blood pressure. Kerlix roll and deloris wrap to bilateral lower extremities Fluid restriction of 1500 mls daily 2 g cardiac and carbohydrate controlled diet diet Hold Imdur because of relative hypotension. Decrease dose of lisinopril because of relative hypotension. Cardiology consult Acute kidney injury Creatinine on presentation was 1.26. Baseline creatinine is about 0.9. Likely cardiorenal syndrome. Lasix as above. COPD Patient is on mild wheezes. However her symptoms could be due to heart failure. We will continue home inhalers. Chronic pain Home narcotics continued. Lyrica continued. Morphine IV x1 given for leg pain at the emergency department. Diabetes mellitus type II With complications including diabetic neuropathy Patient with hyperglycemia on presentation, mild. Hold metformin for now. Accu-Chek QA CHS. Lyrica continued Tobacco abuse Counseled Nicotine patch prescribed Marijuana abuse Counseled. DVT Prophylaxis Subcutaneous Lovenox Code Visit Inpatient E&M: 09992 Init Hosp L3
[2019-09-28] MEDS: Furosemide 40 MG/4 ML Vial IV ×2 (04:34→09:15)
--- NOTE | 2019-09-28 04:54 | ED.RN ---
THIS NURSE GOT PATIENT UP TO THE BSC. PATIENT BECAME VERY SHORT OF BREATH WHEN WE GOT HER BACK TO BED. PULSE OX WAS 87-88% ON 4 LITERS. I PUT HER UP TO 5 LITERS AND HAD HER DEEP BREATHE THROUGH HER NOSE. SHE RECOVERED AGAIN AND WAS 100% SO I DECREASED HER BACK DOWN TO 4L. HER MANUAL BP WAS 76/50, RIGHT ARM. DR. STONE MADE AWARE OF THIS BP.
[2019-09-28] MEDS: Morphine 2 MG/ML Syringe IV (06:05)
--- NOTE | 2019-09-28 06:29 | ECHOCS_ITS ---
Reason For Study: SOB Procedure This was a 2D Doppler, Color Flow transthoracic echocardiogram. The study was technically difficult. Exam performed portable in patient room. Left Ventricle Normal LV size. The estimated ejection fraction is 65 %. Left ventricular systolic function is normal. No regional wall motion abnormalities noted. Right Ventricle Normal RV size. Normal systolic function. Atria The left atrium is not well visualized. The right atrium is not well visualized. Mitral Valve Mitral valve not well visualized. Tricuspid Valve The tricuspid valve is not well visualized. Aortic Valve The aortic valve is not well visualized. Great Vessels Normal aortic root. The pulmonary artery is normal size. Normal inferior vena cava. Pericardium/Pleural No pericardial effusion. Medication Diluted definity 4ml given slow IV push to enhance endocardial definition. MMode/2D Measurements & Calculations LVOT diam: 2.1 cm Ao root diam: 3.7 cm LVOT area: 3.4 cm2 Doppler Measurements & Calculations MV E max liam: 98.2 cm/sec Ao V2 max: 381.1 cm/sec LV V1 max: 125.8 cm/sec Ao max P.3 mmHg LV V1 max P.3 mmHg Ao V2 mean: 261.1 cm/sec LV V1 mean P.3 mmHg Ao mean P.2 mmHg LV V1 mean: 85.8 cm/sec Ao V2 VTI: 77.5 cm LV V1 VTI: 24.7 cm LORENA(I,D): 1.1 cm2 LORENA(V,D): 1.1 cm2 SV(LVOT): 84.8 ml Interpretation Summary Normal LV size. The estimated ejection fraction is 65 %. Left ventricular systolic function is normal. Contrast injection was performed. Ordering Physician: Adrien Swartz Referring Physician: Dale Langston Performed By: Iveth Kwok RDCS
--- NOTE | 2019-09-28 06:39 | EKG12_ITS ---
Test Reason : SOB Blood Pressure : / mmHG Vent. Rate : 071 BPM Atrial Rate : 357 BPM P-R Int : 000 ms QRS Dur : 096 ms QT Int : 402 ms P-R-T Axes : 000 -02 039 degrees QTc Int : 436 ms Atrial fibrillation Nonspecific T wave abnormality Abnormal ECG Confirmed by REUBEN MEEK, KATELYNN ([id number]), pictures editor DHIRAJ ARMIJO ([id number]) on 09/30/2019 8:51:41 AM Referred By: Adrien Swartz Confirmed By:KATELYNN ALEXIS MD
[2019-09-28] MEDS: Budesonide Respules 0.5 MG/2 ML AMPUL.NEB. INHALATION ×2 (08:20→17:54)
--- NOTE | 2019-09-28 09:01 | CON.PCM_ITS ---
Reason for Consult Date of Consultation: 09/28/19 Reason for Consultation: Shortness of breath History of Present Illness: The patient is a 69 year old F with a difficult to obtain cardiac history with a history of coronary bypass surgery in the past and possible stenting in the past as well. She also has a history of hypertension, obesity. She presented to the emergency room because she complained of shortness of breath which has been ongoing for the last few days. She denied any chest pain or paroxysmal nocturnal dyspnea or pedal edema. She says that she has been compliant with her medications but has not followed up with any went well. She was admitted to the telemetry care unit and cardiology was consulted for a possible diagnosis of heart failure. [] Past Medical History Allergies/Adverse Reactions: Allergies diltiazem HCl [From Cardizem] Adverse Reaction (Mild, Verified 02/27/19 09:48) Swelling cephalexin [From Keflex] Adverse Reaction (Verified 02/27/19 11:04) Upset Stomach Home Medications: Ambulatory Orders Medication Instructions Recorded Aspirin E.C. [Ecotrin] 81 mg PO DAILY 09/07/14 Isosorbide Mononitrate [Isosorbide 60 mg PO DAILY 09/07/14 Mononitrate ER] Lisinopril [Zestril] 20 mg PO DAILY 09/07/14 metFORMIN HCl [Glucophage] 1,000 mg PO BID 09/07/14 Atorvastatin Calcium [Lipitor] 80 mg PO QHS 03/19/16 Clopidogrel Bisulfate [Plavix] 75 mg PO DAILY 03/19/16 Pregabalin [Lyrica] 225 mg PO BID 03/19/16 Budesonide/Formoterol 160/4.5 2 puff INHALATION BID PRN 12/15/17 [Symbicort 160/4.5 Mcg Inhaler (SP)] Carvedilol [Coreg (Beta Adriana)] 12.5 mg PO BID 12/15/17 Furosemide [Lasix] 40 mg PO BID 12/15/17 Oxycodone HCl/Acetaminophen 2 tab PO TID 02/27/19 [Oxycodone-Acetaminophen 10-325] Albuterol Inhaler [Ventolin Hfa] 2 puff IH Q4H PRN PRN 09/28/19 Tiotropium [place] [Spiriva] 18 mcg IH DAILY 09/28/19 Past Medical History (Chronic Problems): Chronic Problems History of peripheral arterial disease (Chronic) Acute exacerbation of CHF (congestive heart failure) (Chronic) Coronary artery disease (Chronic) Status post stents Hypertension (Chronic) COPD (chronic obstructive pulmonary disease) (Chronic) Neuropathy, diabetic (Chronic) Type 2 diabetes mellitus (Chronic) Surgical History: coronary bypass surgery, herniorrhaphy, - - cardiac stent placement, left elbow surgery for nerve entrapment Psychiatric History: No pertinent psych hx 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 Denies: Chest Discomfort, Orthopnea, PND, Palpitations, Lightheadedness, Dizziness, Near Syncope, Syncope Respiratory: Reports: Cough. Denies: Sputum Production, Hemoptysis Gastrointestinal: Denies: Hematemesis, Hematochezia, Melena Genitourinary: Denies: Dysuria, Hematuria Muscoloskeletal: Denies: Myalgias Skin: Denies: Rash Neurological: Denies: Dizziness Psychiatric: Denies: Anxiety Endocrine: Denies: Heat Intolerance Hematologic/ Lymphatic: Denies: Anemia Subjectve: Middle-aged lady in no distress rather somnolent Objective: Vital Signs Temp Pulse Resp BP Pulse Ox 97.7 F L 77 16 123/67 H 93 09/28/19 07:03 09/28/19 08:20 09/28/19 08:20 09/28/19 07:09 09/28/19 08:20 Oxygen Flow Rate (L/min) 4 Oxygen Delivery Method Nasal Cannula Weight: 285 lb 15.033 oz Body Mass Index (BMI) 49.1 Intake and Output for Last 24 Hours 09/26/19 09/27/19 09/28/19 23:59 23:59 23:59 Intake Total 500 / 500 Balance 500 / 500 General: Alert, Oriented x 3 HEENT: PERRL, EOMI, Sclera Non Icteric Neck: Supple, Good ROM, No Lymph Node Enlargement Chest Wall: Midline Sternotomy Incision Lungs: Rales - Jas Bases Cardiovascular: Irregular Rhythm, Normal S1, Normal S2, No Rubs, No Gallops Murmur Murmur: Grade 2/6, Early Systolic, LLSB Vascular: No Carotid Bruits, Normal Femoral Pulses, Normal Radial Pulses, Normal Dorsalis Pedal Pulse, Normal Posterior Tibial Pulses Abdomen: Bowel Sounds Present, Soft, Non Tender, No HSM, No Organomegaly Extremities: No Cyanosis, No Clubbing, Bilateral Edema +2 Musculoskeletal: No Erythema Skin: No Rashes Lymphatic: No Lymph Node Enlargement Neurological: No Focal Motor or Sensory Deficit Psych/Mental Status: Appropriate 09/28/19 01:15: WBC 11.1 H, RBC 3.19 L, Hgb 9.3 L, Hct 30.2 L, MCV 94.7, MCH 29.2, MCHC 30.8 L, Plt Count 236, MPV 10.4, Immature Gran % (Auto) 0.600, Neut % (Auto) 70.4 H, Lymph % (Auto) 18.5 L, [place] % (Auto) 7.5, Eos % (Auto) 2.4, Baso % (Auto) 0.6, Absolute Neuts (auto) 7.8 H, Nucleated RBC % 0 09/28/19 01:15: Sodium 134 L, Potassium 4.8, Chloride 102, Carbon Dioxide 29.0, Anion Gap 3 L, BUN 42 H, Creatinine 1.26 H, Est GFR (MDRD) Af Amer 54 L, Est GFR (MDRD) Non-Af 45 L, BUN/Creatinine Ratio 33.3 H, Glucose 111 H, Calcium 9.6, Troponin I < 0.015 09/28/19 01:15: B-Natriuretic Peptide 607.4 H 09/28/19 06:52: Troponin I < 0.015 Rhythm: EKG: Atrial fibrillation with a controlled ventricular response rate ECHO: Stress Test: Cardiac Cath: PCI: CT Surgery: Holter monitor: EPS: PPM: CXR: Chest CT Scan: Assessment/Plan 1. Shortness of breath-congestive heart failure with preserved ejection fraction * She presents with progressive shortness of breath and is noted to have bilateral rales, elevated natruretic peptide and pedal edema. * Would recommend diuresis with intravenous Lasix with a bolus and a Lasix drip for 24 hours and then switch to intermittent Lasix and all p.o. Lasix * Obtain echocardiogram to assess her low ventricular function * I suspect the atrial fibrillation is contributing to her loss of atrial kick and heart failure * Would add beta-adriana and SHANICE inhibitor as tolerated * 2. She does have a history of coronary artery disease * With attempt to obtain the bypass history as well as any previous stenting * Continue clopidogrel in the meantime * Continue beta-adriana * 3. Hypertension * Continue current medical therapy * 4. Risk factor modification * Continue aggressive risk factor modification at this time * * Thank you for allowing me to participate in the care of your patient. Please don't hesitate to call if any issues arise
[2019-09-28] MEDS: 0.9% Saline Lock 10 ML Syringe IV (09:11)
[2019-09-28] MEDS: Carvedilol 12.5 MG Tablet PO ×2 (10:09→21:00)
[2019-09-28] MEDS: Aspirin E.C. 81 MG Tablet PO (10:10)
[2019-09-28] MEDS: Clopidogrel Bisulfate 75 MG Tablet PO (10:10)
[2019-09-28] MEDS: APIXABAN 5 MG TABLET PO ×2 (10:21→21:03)
[2019-09-28] MEDS: Pregabalin 75 MG Capsule 225 MG PO ×2 (10:29→21:14)
[2019-09-28] MEDS: oxyCODONE 5 MG Tablet 10 MG PO ×2 (11:42→21:00)
[2019-09-28] MEDS: Atorvastatin Calcium 80 MG Tablet PO (21:03)
[2019-09-29] VITALS (14 sets, daily range): BP systolic 106–138; BP diastolic 36–58; PULSE 74–94; RESP 17–22; TEMP 36.3–37.1; O2SAT 93–97
[2019-09-29] MEDS: oxyCODONE 5 MG Tablet 10 MG PO ×3 (05:56→20:58)
[2019-09-29 06:08] LABS: Absolute Lymphocyte Count 1.82 X10^3/uL (0.83-4.51); Absolute Neutrophil Count 7.2 X10^3/uL (2.0-7.7); Basophil# 0.04 X10^3/uL; Basophil% 0.4 % (0-1); Eosinophil# 0.28 X10^3/uL; Eosinophils% 2.8 % (0-5); Hematocrit 31.4 % (37-47); Hemoglobin 9.7 g/dL (12.0-15.0); Lymphocyte # 1.82 X10^3/ul (4.0); Lymphocyte % 17.9 % (19-41); Mean Corp Hgb Conc 30.9 g/dL (32-36); Mean Corpuscular Hgb 29.1 pg (27.0-32.0); Mean Corpuscular Volume 94.3 fL (81-99); Mean Platelet Vol. 10.4 fl (6.2-12.0); Monocyte# 0.74 X10^3/uL; Monocyte% 7.3 % (0-10); NRBC Flagged by Analyzer 0 % (0-5); Neutrophil # 7.23 X10^3/uL (2.7-7.7); Neutrophil % 71.2 % (47-70); Platelet Count 213 K/mm3 (150-450); RBC Distribution Width CV 16.7 % (11.6-14.6); RBC Distribution Width SD 57.3 fl (35.1-43.9); Red Blood Count 3.33 M/mm3 (4.2-5.4); White Blood Count 10.2 K/mm3 (4.4-11.0)
[2019-09-29 06:38] LABS: Anion Gap 3 (5-15); BUN 34 mg/dL (7-18); BUN/Creat Ratio 31.2 RATIO (10-20); Calcium,Total 8.6 mg/dL (8.5-10.1); Chloride 99 mmol/L (98-107); Creatinine, Serum 1.09 mg/dL (0.55-1.02); EST Glomerular Filtration Rate 53 mL/min (>60); Est Glom Filt Rate - Afr Amer 64 mL/min (>60); Estimated Creatinine Clearance 43.25 ml/min; Glucose 127 mg/dL (74-106); Potassium 4.1 mmol/L (3.5-5.1); Sodium Level 137 mmol/L (136-145)
[2019-09-29] MEDS: Budesonide Respules 0.5 MG/2 ML AMPUL.NEB. INHALATION ×2 (06:47→19:54)
[2019-09-29] MEDS: Ipratropium/Albuterol Sulfate 3 ML AMPUL.NEB INHALATION ×3 (06:49→19:54)
--- NOTE | 2019-09-29 07:06 | PN.CARD_ITS ---
Subjectve: Patient seen and evaluated. Appears to be doing better this morning. Objective: Vital Signs Temp Pulse Resp BP Pulse Ox 97.3 F L 75 18 125/58 H 94 09/29/19 02:20 09/29/19 03:00 09/29/19 02:20 09/29/19 02:20 09/29/19 02:20 Oxygen Flow Rate (L/min) 4 Oxygen Delivery Method Nasal Cannula Weight: 276 lb 7.355 oz Body Mass Index (BMI) 49.1 Intake and Output for Last 24 Hours 09/27/19 09/28/19 09/29/19 23:59 23:59 23:59 Intake Total 1122.78 / 1122.78 200 / 200 Output Total 5050 / 5050 1500 / 1500 Balance -3927.22 / -3927.22 -1300 / -1300 General: Awake, Alert, Oriented x 3 HEENT: PERRL, EOMI, Sclera Non Icteric Neck: Supple, Good ROM, No Lymph Node Enlargement Lungs: Diminished Jas Bases Cardiovascular: Regular Rhythm, Normal S1, Normal S2, No Murmurs, No Rubs, No Gallops Vascular: No Carotid Bruits, Normal Femoral Pulses, Normal Radial Pulses, Normal Dorsalis Pedal Pulse, Normal Posterior Tibial Pulses Abdomen: Bowel Sounds Present, Soft, Non Tender, No HSM, No Organomegaly Extremities: No Cyanosis, No Clubbing, No edema Musculoskeletal: No Erythema Skin: No Rashes Lymphatic: No Lymph Node Enlargement Neurological: No Focal Motor or Sensory Deficit Psych/Mental Status: Appropriate 09/28/19 06:52: Troponin I < 0.015 09/28/19 09:20: Troponin I < 0.015 09/28/19 12:35: Troponin I < 0.015 09/29/19 05:50: Sodium 137, Potassium 4.1, Chloride 99, Carbon Dioxide 35.0 H, Anion Gap 3 L, BUN 34 H, Creatinine 1.09 H, Est GFR (MDRD) Af Amer 64, Est GFR (MDRD) Non-Af 53 L, BUN/Creatinine Ratio 31.2 H, Glucose 127 H, Calcium 8.6 09/29/19 05:50: WBC 10.2, RBC 3.33 L, Hgb 9.7 L, Hct 31.4 L, MCV 94.3, MCH 29.1, MCHC 30.9 L, Plt Count 213, MPV 10.4, Immature Gran % (Auto) 0.400, Neut % (Auto) 71.2 H, Lymph % (Auto) 17.9 L, [place] % (Auto) 7.3, Eos % (Auto) 2.8, Baso % (Auto) 0.4, Absolute Neuts (auto) 7.2, Nucleated RBC % 0 Rhythm: EKG: ECHO: Stress Test: Cardiac Cath: PCI: CT Surgery: Holter monitor: EPS: PPM: CXR: Chest CT Scan: Medical Necessity - Tobacco Use Smoking Status: Current every day smoker Tobacco Use: Cigarettes Assessment/Plan 1. Shortness of breath-congestive heart failure with preserved ejection fracti on * She presents with progressive shortness of breath and is noted to have bilateral rales, elevated natruretic peptide and pedal edema. * Would recommend diuresis with intravenous Lasix with a bolus and a Lasix drip for 24 hours and then switch to intermittent Lasix and all p.o. Lasix * Obtain echocardiogram to assess her ventricular function * I suspect the atrial fibrillation is contributing to her loss of atrial kick and heart failure * Would add beta-kathleen and SHANICE inhibitor as tolerated * 2. She does have a history of coronary artery disease * With attempt to obtain the bypass history as well as any previous stenting * Continue clopidogrel in the meantime * Continue beta-kathleen * 3. Hypertension * Continue current medical therapy * 4. Risk factor modification * Continue aggressive risk factor modification at this time * * Thank you for allowing me to participate in the care of your patient. Please don't hesitate to call if any issues arise
[2019-09-29] MEDS: metFORMIN HCl 1,000 MG Tablet 1000 MG PO (08:30)
[2019-09-29] MEDS: 0.9% Saline Lock 10 ML Syringe IV ×3 (08:30→18:12)
[2019-09-29] MEDS: Carvedilol 12.5 MG Tablet PO ×2 (08:30→20:58)
[2019-09-29] MEDS: Aspirin E.C. 81 MG Tablet PO (08:31)
[2019-09-29] MEDS: APIXABAN 5 MG TABLET PO ×2 (08:31→20:58)
[2019-09-29] MEDS: Clopidogrel Bisulfate 75 MG Tablet PO (08:31)
[2019-09-29] MEDS: Nystatin Powder 15gm Bottle 1 APPLIC TOPICAL ×2 (08:34→20:58)
[2019-09-29] MEDS: Pregabalin 75 MG Capsule 225 MG PO ×2 (08:38→20:59)
--- NOTE | 2019-09-29 09:26 | PCM.PN.HOSP ---
Patient Problems: Active and Suspected Problems POWELL (dyspnea on exertion) (Acute) Subjective: Feeling better and breathing little bit better Vitals/I&O's: Vital Signs Temp Pulse Resp BP Pulse Ox 98.7 F 78 17 138/58 H 94 09/29/19 08:19 09/29/19 08:19 09/29/19 08:19 09/29/19 08:19 09/29/19 08:19 Oxygen Flow Rate (L/min) 3 Oxygen Delivery Method Nasal Cannula Weight: 276 lb 7.355 oz Body Mass Index (BMI) 49.1 Intake and Output for Last 24 Hours 09/27/19 09/28/19 09/29/19 23:59 23:59 23:59 Intake Total 1122.78 / 1122.78 296.75 / 296.75 Output Total 5050 / 5050 1500 / 1500 Balance -3927.22 / -3927.22 -1203.25 / -1203.25 General: Alert, Oriented x3, Cooperative HEENT: Atraumatic, PERRLA, EOMI, Normocephalic Oral: Moist Mucosa Neck: Supple, No JVD Lungs: Clear to auscultation, Normal air movement, No rhonchi, No wheeze, No rales, Diminished Cardiovascular: Regular rate, Regular Rhythm, Normal S1, Normal S2, No murmurs Abdomen: Soft, Non Tender, Non-Distended, No Hepato-splenomegaly, Obese Extremities: Capillary Refill Less than 3 Seconds, Edema - Bilateral lower extremity?improving Skin: No rashes, No breakdown Neurological: Neuro grossly intact, Sensory exam intact to light touch and pain Psych/Mental Status: Normal Affect, Appropriate Microbiology Past 72 Hours 09/28/19 01:50 Mucosa - Nasopharyngeal Influenza Types A,B Direct FA (RYANNE) - Final Laboratory Results 09/28/19 09:20: Troponin I < 0.015 09/28/19 12:35: Troponin I < 0.015 09/29/19 05:50: Sodium 137, Potassium 4.1, Chloride 99, Carbon Dioxide 35.0 H, Anion Gap 3 L, BUN 34 H, Creatinine 1.09 H, Estim Creat Clear Calc 43.25, Est GFR (MDRD) Af Amer 64, Est GFR (MDRD) Non-Af 53 L, BUN/Creatinine Ratio 31.2 H, Glucose 127 H, Calcium 8.6 01/06/20 05:50: WBC 10.2, RBC 3.33 L, Hgb 9.7 L, Hct 31.4 L, MCV 94.3, MCH 29.1, MCHC 30.9 L, RDW Std Deviation 57.3 H, RDW Coeff of [place] 16.7 H, Plt Count 213, MPV 10.4, Immature Gran % (Auto) 0.400, Neut % (Auto) 71.2 H, Lymph % (Auto) 17.9 L, [place] % (Auto) 7.3, Eos % (Auto) 2.8, Baso % (Auto) 0.4, Absolute Neuts (auto) 7.2, Absolute Lymphs (auto) 1.82, Nucleated RBC % 0 Current Medications Acetaminophen (Tylenol) 650 mg PO Q6H PRN PRN PRN Reason: Pain Score 1-10/Temp > 100.7 F Albuterol/Ipratropium (Duoneb) 3 ml INHALATION Q6HWA.RT [facility] Last Admin: 09/29/19 06:49 Dose: 3 ml Documented by: Apixaban (Eliquis) 5 mg PO BID [facility] Last Admin: 09/29/19 08:31 Dose: 5 mg Documented by: Aspirin (Ecotrin) 81 mg PO DAILY [facility] Last Admin: 09/29/19 08:31 Dose: 81 mg Documented by: Atorvastatin Calcium (Lipitor) 80 mg PO QHS [facility] Last Admin: 09/28/19 21:03 Dose: 80 mg Documented by: Budesonide (Pulmicort Aerosol) 0.5 mg INHALATION Q12H.RT [facility] Last Admin: 09/29/19 06:47 Dose: 0.5 mg Documented by: Carvedilol (Coreg) 12.5 mg PO BID [facility] Last Admin: 09/29/19 08:30 Dose: 12.5 mg Documented by: Clopidogrel Bisulfate (Plavix) 75 mg PO DAILY [facility] Last Admin: 09/29/19 08:31 Dose: 75 mg Documented by: Furosemide (Lasix) 40 mg IV BID@1000,1800 [facility] Glucagon () 1 mg IM .X1 PRN PRN Reason: Hypoglycemia Sodium Chloride () 250 mls @ 15 mls/hr IV .[id number] PRN PRN Reason: Saline Flush Last Infusion: 09/29/19 08:49 Dose: 0 mls/hr Documented by: Sodium Chloride () 250 mls @ 15 mls/hr IV .[id number] PRN PRN Reason: Additional IVPB Infusion Dextrose (Dextrose 10%-Water) 250 mls @ 999 mls/hr IV .Q16M PRN; Protocol PRN Reason: HYPOGLYCEMIA [facility] Admin: 09/29/19 08:30 Dose: 1,000 mg Documented by: Nicotine (Nicoderm Cq (Pbkc)) 21 mg TRANSDERM. DAILY [facility] Last Admin: 09/28/19 10:12 Dose: Not Given Documented by: Nystatin (Mycostatin Powder) 1 applic TOPICAL BID [facility]; Protocol Last Admin: 09/29/19 08:34 Dose: 1 applicatio Documented by: Ondansetron HCl (Zofran) 4 mg IV Q8H PRN PRN PRN Reason: NAUSEA/VOMITING Oxycodone HCl (Oxyir) 10 mg PO TID [facility] Last Admin: 09/29/19 05:56 Dose: 10 mg Documented by: Pregabalin (Lyrica) 225 mg PO BID [facility] Last Admin: 09/29/19 08:38 Dose: 225 mg Documented by: Sodium Chloride () 10 - 40 ml IV UD PRN PRN Reason: SALINE FLUSH Last Admin: 09/29/19 08:30 Dose: 10 ml Documented by: Sodium Chloride ([place] Nasal [place]) 2 spray NASAL TID PRN PRN PRN Reason: NASAL DRYNESS STROKE Vital Signs/Narrative: Vital Signs Temp Pulse Resp BP Pulse Ox 09/29/19 08:19 98.7 F 78 17 138/58 H 94 09/29/19 07:26 74 09/29/19 06:47 92 19 H 97 Medical Necessity - Tobacco Use Smoking Status: Current every day smoker Tobacco Use: Cigarettes Assessment/Plan All Active Problems POWELL (dyspnea on exertion) (Acute) 1. Acute on chronic diastolic CHF/CAD status post stent/PAD/HTN/HLD/new onset A. fib -Echo 09/07/2014 showed an normal ejection fraction, repeat echo is pending -She was started on an insulin drip and diuresed about 5 L since yesterday -With Lasix drips the creatinine has improved from 1.26 to 1.09 -Discontinue Lasix drip and transition to twice daily dosing IV -Continue with aspirin and Plavix -C/w with Lipitor -Continue with Coreg, the Imdur was held on admission as was lisinopril -CT of the chest was negative, appreciate cardiology input -Continue with Eliquis, will discuss the role of dual antiplatelet with cardiology in the setting of Eliquis -Will continue to monitor renal function and if continues to improve can restart lisinopril 2. DM 2 with neuropathy/[place]/morbid obesity -We will hold her metformin and start her on sliding scale insulin -Accu-Cheks AC at bedtime, continue with Lyrica -On admission renal function was 1.26, baseline is 0.7 -Bryan lifestyle modifications, BMI is 47 3. COPD -Currently not in exacerbation -Continue with home inhalers DVT: Eliquis Code Visit Inpatient E&M: 08890 Subs Hosp L2
[2019-09-29] MEDS: Albuterol 2.5 MG/3 ML VIAL.NEB. INHALATION (11:05)
[2019-09-29] MEDS: Furosemide 40 MG/4 ML Vial IV ×2 (11:10→18:12)
[2019-09-29 11:25] LABS: Bedside Glucose 195 mg/dL (70-110)
[2019-09-29] MEDS: Insulin Lispro 100 UNIT/ML INSULN.PEN SC (13:47)
--- NOTE | 2019-09-29 14:03 | CASEMGMT ---
Addendum entered by Zarina Khalil 09/29/19 14:43: Call to [facility] and they are now aware that pt is admitted at this time. Contact info, phone [phone], fax [phone]. They state pt's HHC is suspended at this time and that they would like to be notified when pt discharging. [place]en COOKIE COTA Original Note: COOKIE COTA assessment: Face to Face with patient for initial transition planning/care coordination assessment. COOKIE COTA introduced self and role at [facility], pt voices understanding and consents to assessment at this time. Pt is lying in bed in no distress at this time. Pt is A/Ox4 at this time and answers all questions appropriately at this time. Care providers, pharmacy, and demographics verified at this time. Presentation: Pt c/o increased SOB and BLE edema Admitting dx: Acute exacerbation of heart failure PCP: Cb Specialists: Testlyla, pod; Lul, thoracic/vasc surgeon Preferred Pharmacy: [facility] Insurance: 7billionideasinTarvo [facility] Prescription Benefit: [employer] Living Will/HPOA: Pt states does not have LW/HPOA but states would like to complete at this time. Isma ASENCIO aware, voices understanding. LNOK: Stanley Tello, (they are but he has been staying with her to help her out), Ana Paula Cobian, sister Living Arrangements: Pt states lives with [id number] in 1 story home and states has been struggling to care for self at home. Pt states her , who she is from, has been staying at time to help as she has had increased SOB and weakness. Pt states that her [id number] is only able to bring her things at times. Pt states has needed assist with cooking and she has an aide that helps thru [facility]. Transportation: Pt states Stanley drives and states no transportation concerns at this time. DME/HHC: Pt states has a shower chair, w/c, nebulizer x2, and home oxygen 3liters thru [facility]. Pt states no need for any further DME at this time. Pt states is current with [facility] for RN/aide and states no hx of SNF in the past. Resumption of care order placed at this time. Pt states no concerns with going home at time of discharge and declines SNF placement at this time. Pt was only able to ambulate about 5 ft with therapy today d/t SOB. Pt states is retired. Pt states still smokes 1/2-1 pack per day and states does not drink ETOH. Pt states no further concerns/needs at this time. CM to follow for further PT/OT recommendations, increased home oxygen need, and any further discharge planning/needs. Pt Goal: Home Plan: Home, pending PT/OT and increased home oxygen needs. Raffi GARY CM
[2019-09-29 17:15] LABS: Bedside Glucose 144 mg/dL (70-110)
[2019-09-29] MEDS: Atorvastatin Calcium 80 MG Tablet PO (20:58)
[2019-09-29 22:11] LABS: Bedside Glucose 154 mg/dL (70-110)
[2019-09-30] VITALS (12 sets, daily range): BP systolic 117–133; BP diastolic 44–87; PULSE 71–93; RESP 16–24; TEMP 36.6–36.9; O2SAT 87–98
[2019-09-30] MEDS: Ipratropium/Albuterol Sulfate 3 ML AMPUL.NEB INHALATION ×3 (00:33→12:59)
[2019-09-30] MEDS: oxyCODONE 5 MG Tablet 10 MG PO ×2 (06:00→13:29)
[2019-09-30 06:18] LABS: Absolute Lymphocyte Count 2.17 X10^3/uL (0.83-4.51); Absolute Neutrophil Count 6.5 X10^3/uL (2.0-7.7); Basophil# 0.05 X10^3/uL; Basophil% 0.5 % (0-1); Eosinophil# 0.34 X10^3/uL; Eosinophils% 3.4 % (0-5); Hematocrit 29.1 % (37-47); Hemoglobin 8.7 g/dL (12.0-15.0); Lymphocyte # 2.17 X10^3/ul (4.0); Lymphocyte % 21.9 % (19-41); Mean Corp Hgb Conc 29.9 g/dL (32-36); Mean Corpuscular Hgb 28.1 pg (27.0-32.0); Mean Corpuscular Volume 93.9 fL (81-99); Mean Platelet Vol. 10.5 fl (6.2-12.0); Monocyte% 8.1 % (0-10); NRBC Flagged by Analyzer 0 % (0-5); Neutrophil # 6.49 X10^3/uL (2.7-7.7); Neutrophil % 65.7 % (47-70); Platelet Count 215 K/mm3 (150-450); RBC Distribution Width CV 16.8 % (11.6-14.6); RBC Distribution Width SD 56.9 fl (35.1-43.9); White Blood Count 9.9 K/mm3 (4.4-11.0)
[2019-09-30 06:36] LABS: Anion Gap 4 (5-15); BUN 35 mg/dL (7-18); BUN/Creat Ratio 36.2 RATIO (10-20); Calcium,Total 8.7 mg/dL (8.5-10.1); Chloride 98 mmol/L (98-107); Creatinine, Serum 0.97 mg/dL (0.55-1.02); EST Glomerular Filtration Rate 61 mL/min (>60); Est Glom Filt Rate - Afr Amer 74 mL/min (>60); Glucose 138 mg/dL (74-106); Sodium Level 137 mmol/L (136-145)
[2019-09-30 07:00] LABS: Bedside Glucose 142 mg/dL (70-110)
[2019-09-30] MEDS: Budesonide Respules 0.5 MG/2 ML AMPUL.NEB. INHALATION (07:24)
--- NOTE | 2019-09-30 08:19 | CPS ---
Pt decreased to 4lpm. Sat 92% on 4lpm
--- NOTE | 2019-09-30 08:26 | PN.CARD_ITS ---
Subjectve: Patient seen and evaluated and appears to be doing better Objective: Vital Signs Temp Pulse Resp BP Pulse Ox 98.4 F 85 16 117/44 L 97 09/30/19 03:00 09/30/19 07:23 09/30/19 07:23 09/30/19 03:00 09/30/19 07:23 Oxygen Flow Rate (L/min) 6 Oxygen Delivery Method Nasal Cannula Weight: 276 lb 10.882 oz Body Mass Index (BMI) 49.1 Intake and Output for Last 24 Hours 09/28/19 09/29/19 09/30/19 23:59 23:59 23:59 Intake Total 1122.78 / 1122.78 1576.75 / 1816.75 480 / 480 Output Total 5050 / 5050 2900 / 3550 1200 / 1200 Balance -3927.22 / -3927.22 -1323.25 / -1733.25 -720 / -720 General: Awake, Alert, Oriented x 3 HEENT: PERRL, EOMI, Sclera Non Icteric Neck: Supple, Good ROM, No Lymph Node Enlargement Lungs: Clear to auscultation Cardiovascular: Regular Rhythm, Normal S1, Normal S2, No Murmurs, No Rubs, No Gallops Vascular: No Carotid Bruits, Normal Femoral Pulses, Normal Radial Pulses, Normal Dorsalis Pedal Pulse, Normal Posterior Tibial Pulses Abdomen: Bowel Sounds Present, Soft, Non Tender, No HSM, No Organomegaly Extremities: No Cyanosis, No Clubbing, No edema Musculoskeletal: No Erythema Skin: No Rashes Lymphatic: No Lymph Node Enlargement Neurological: No Focal Motor or Sensory Deficit Psych/Mental Status: Appropriate 09/30/19 05:15: WBC 9.9, RBC 3.10 L, Hgb 8.7 L, Hct 29.1 L, MCV 93.9, MCH 28.1, MCHC 29.9 L, Plt Count 215, MPV 10.5, Immature Gran % (Auto) 0.400, Neut % (Auto) 65.7, Lymph % (Auto) 21.9, [place] % (Auto) 8.1, Eos % (Auto) 3.4, Baso % (Auto) 0.5, Absolute Neuts (auto) 6.5, Nucleated RBC % 0 09/30/19 05:15: Sodium 137, Potassium 4.0, Chloride 98, Carbon Dioxide 35.0 H, Anion Gap 4 L, BUN 35 H, Creatinine 0.97, Est GFR (MDRD) Af Amer 74, Est GFR (MDRD) Non-Af 61, BUN/Creatinine Ratio 36.2 H, Glucose 138 H, Calcium 8.7 Rhythm: EKG: ECHO: Stress Test: Cardiac Cath: PCI: CT Surgery: Holter monitor: EPS: PPM: CXR: Chest CT Scan: Medical Necessity - Tobacco Use Smoking Status: Current every day smoker Tobacco Use: Cigarettes Assessment/Plan 1. Shortness of breath-congestive heart failure with preserved ejection fraction * She presents with progressive shortness of breath and is noted to have bilateral rales, elevated natruretic peptide and pedal edema. * Would recommend diuresis with intravenous Lasix with a bolus and a Lasix drip for 24 hours and then switch to intermittent Lasix and all p.o. Lasix * Echocardiogram demonstrates preserved ejection fraction * I suspect the atrial fibrillation is contributing to her loss of atrial kick and heart failure * Would add beta-kathleen and SHANICE inhibitor as tolerated * 2. She does have a history of coronary artery disease * With attempt to obtain the bypass history as well as any previous stenting * Will discontinue clopidogrel especially if history of previous stenting was more than a year. * Continue beta-kathleen * 3. Hypertension * Continue current medical therapy * 4. Risk factor modification * Continue aggressive risk factor modification at this time * * Thank you for allowing me to participate in the care of your patient. Please don't hesitate to call if any issues arise
[2019-09-30] MEDS: Furosemide 40 MG/4 ML Vial IV (09:10)
[2019-09-30] MEDS: APIXABAN 5 MG TABLET PO (09:11)
[2019-09-30] MEDS: Carvedilol 12.5 MG Tablet PO (09:11)
[2019-09-30] MEDS: 0.9% Saline Lock 10 ML Syringe IV ×2 (09:11→09:20)
[2019-09-30] MEDS: Aspirin E.C. 81 MG Tablet PO (09:11)
[2019-09-30] MEDS: Nystatin Powder 15gm Bottle 1 APPLIC TOPICAL (09:12)
[2019-09-30] MEDS: Pregabalin 75 MG Capsule 225 MG PO (09:18)
--- NOTE | 2019-09-30 09:46 | CASEMGMT ---
SW went to check in with patient regarding advance directives. She was sleeping SW will stop by again later. Jessica MIRANDA MSW
--- NOTE | 2019-09-30 09:59 | DCINST_ITS ---
- Discharge Diagnoses Current Active Problems: Current Active and Chronic Problems Acute exacerbation of CHF (congestive heart failure) (Chronic) POWELL (dyspnea on exertion) (Acute) You will use the following diet at home:: Cardiac Your food should be the consistency of: Regular Your liquids should be the consistency of: Regular/Thin Discharge Activity: Return to Normal Activity Call your doctor if you observe: Fever of 101 or Higher, Shortness of breath, Dizziness, Fainting spells, Swelling in the ankles, Chest pain, Increased palpitations (irregular heartbeat) Additional Instructions: Obtain a BMP by your PCP to evaluate your kidney function. Allergies/Adverse Reactions: Allergies diltiazem HCl [From Cardizem] Adverse Reaction (Mild, Verified 02/27/19 09:48) Swelling cephalexin [From Keflex] Adverse Reaction (Verified 02/27/19 11:04) Upset Stomach Medications to take at Discharge Aspirin E.C. [Ecotrin] 81 mg PO DAILY 09/07/14 Isosorbide Mononitrate [Isosorbide Mononitrate ER] 60 mg PO DAILY 09/07/14 Lisinopril [Zestril] 20 mg PO DAILY 09/07/14 metFORMIN HCl [Glucophage] 1,000 mg PO BID 09/07/14 Atorvastatin Calcium [Lipitor] 80 mg PO QHS 03/19/16 Pregabalin [Lyrica] 225 mg PO BID 03/19/16 Budesonide/Formoterol 160/4.5 [Symbicort 160/4.5 Mcg Inhaler (SP)] 2 puff INHALATION BID PRN 12/15/17 Carvedilol [Coreg (Beta Adriana)] 12.5 mg PO BID 12/15/17 Furosemide [Lasix] 40 mg PO BID 12/15/17 Oxycodone HCl/Acetaminophen [Oxycodone-Acetaminophen 10-325] 2 tab PO TID 02/27/19 Albuterol Inhaler [Ventolin Hfa] 2 puff IH Q4H PRN PRN 09/28/19 Tiotropium [place] [Spiriva] 18 mcg IH DAILY 09/28/19 Apixaban [Eliquis] 5 mg PO BID #60 tab 09/30/19 The following prescriptions were given: Apixaban [Eliquis] 5 mg PO BID #60 tab Transmission Status: Pending to [facility] Primary Care Physician: Dale Vivar DO [Primary Care Provider] - Please follow up with your Primary Care Physician in: 3-5 days Test Results: Test results from this visit will be discussed in further detail at your follow- up appointment, if applicable. Please Follow Up With: Piyush Lopez MD When: 2-4 weeks
--- NOTE | 2019-09-30 10:29 | CASEMGMT ---
Per Jeanette, pt's order is for 2lpm continuous at this time. Pt to be tested on 2lpm and new order sent if pt qualifies for increased home oxygen. Anny GARY aware and voices understanding at this time. Raffi GARY CM
--- NOTE | 2019-09-30 10:55 | PHA.DC.MC ---
Pharmacy Service has performed discharge medication reconciliation and counseling for this patient. 1. APIXABAN 5MG PO BID The patient's discharge medication list was reviewed for discrepancies and discrepancies were resolved. Home Medications Aspirin E.C. [Ecotrin] 81 mg PO DAILY 09/07/14 Isosorbide Mononitrate [Isosorbide Mononitrate ER] 60 mg PO DAILY 09/07/14 Lisinopril [Zestril] 20 mg PO DAILY 09/07/14 metFORMIN HCl [Glucophage] 1,000 mg PO BID 09/07/14 Atorvastatin Calcium [Lipitor] 80 mg PO QHS 03/19/16 Pregabalin [Lyrica] 225 mg PO BID 03/19/16 Budesonide/Formoterol 160/4.5 [Symbicort 160/4.5 Mcg Inhaler (SP)] 2 puff INHALATION BID PRN 12/15/17 Carvedilol [Coreg (Beta Adriana)] 12.5 mg PO BID 12/15/17 Furosemide [Lasix] 40 mg PO BID 12/15/17 Oxycodone HCl/Acetaminophen [Oxycodone-Acetaminophen 10-325] 2 tab PO TID 02/27/19 Albuterol Inhaler [Ventolin Hfa] 2 puff IH Q4H PRN PRN 09/28/19 Tiotropium [place] [Spiriva] 18 mcg IH DAILY 09/28/19 Apixaban [Eliquis] 5 mg PO BID #60 tab 09/30/19 The patient was counseled on the following discharge medications and changes in medications for homegoing were reviewed. The Reason for Use, instructions for use, and potential side effects were reviewed for all new medications. The patient's questions regarding all of their medications were answered. The patient was able to verbally demonstrate an understanding of their discharge medications.
--- NOTE | 2019-09-30 11:16 | DS.PCM_ITS ---
Discharge Date and Diagnosis - Problem List Patient Problems: Active and Suspected Problems POWELL (dyspnea on exertion) (Acute) Date of Admission: 09/28/19 Date of Discharge: 09/30/19 - Primary Discharge Diagnosis Active and Suspected Problems POWELL (dyspnea on exertion) (Acute) - Secondary Discharge Diagnosis Chronic Problems History of peripheral arterial disease (Chronic) Acute exacerbation of CHF (congestive heart failure) (Chronic) Coronary artery disease (Chronic) Status post stents Hypertension (Chronic) COPD (chronic obstructive pulmonary disease) (Chronic) Neuropathy, diabetic (Chronic) Type 2 diabetes mellitus (Chronic) Hospital Course and Treatment Imaging Results: CXR: IMPRESSION: There is prominence of the pulmonary hilar arteries without peripheral pulmonary vascular congestion, suggesting pulmonary hypertension. CTA Chest: IMPRESSION: No pulmonary embolus detected. Individualized dose optimization techniques were used for this CT. Echo: Interpretation Summary Normal LV size. The estimated ejection fraction is 65 %. Left ventricular systolic function is normal. Contrast injection was performed. Consults: Cardiology Operations: None Procedures: 2-D Echocardiogram Summary of Care Provided: Per HPI: The patient is a 69 year old F with a significant history of peripheral artery disease; tobacco abuse; morbid obesity; COPD; diabetes mellitus with neuropathy who presents at emergency department with progressively worsening shortness of breath that started about 2 days ago. Associated with symptoms is bilateral leg swelling. She reports that she has a history of cellulitis and swelling in left leg and that her right leg is her better leg. However she has noticed increased swelling in her bilateral legs with right worse than left. She reports seepage in the left leg. Associated with her symptoms is orthopnea and proximal nocturnal dyspnea. She is on chronic home oxygen of 3 L. She denies any weight change. Previously she was on BiPAP/CPAP but because she developed nasal congestion and because she was not instructed that the machine could be cleaned she stopped using the BiPAP/CPAP. Hospital Course: 1. Acute on chronic diastolic CHF/CAD status post stents/PAD/HTN/HLD/new onset A. [id number]old female with history of peripheral artery disease presented with progressively worsening shortness of breath as well as leg swelling. She had a BNP of 607 with normal troponins and therefore she was started on a Lasix drip and she had significant improvement in both her breathing and her leg swelling. She was transitioned to twice daily dosing of IV Lasix yesterday and has done well and her creatinine has continued to improve. She is breathing much better and is back to her baseline of 3 L via nasal cannula. I expressed to her that given her previous history with the BiPAP and CPAP that she needs to clean the machine and that she can follow-up with her data processing clerk to restart BiPAP/CPAP usage. She will need to follow-up with her primary care doctor in 3 to 5 days for a BMP to evaluate her renal function, also because of the new on set of A. fib that is rate controlled with Coreg, she was started on Eliquis. It was found that she has not had a recent stent and therefore the Plavix was discontinued but she was continued on aspirin. She will need to follow-up with cardiology in a few weeks as well for evaluation of her A. fib and management of her CHF. She did have an echo that showed a preserved ejection fraction, and the case was discussed with cardiology who felt that she was stable for discharge at this point. She will resume all of her previous medications except for Plavix. 2. DM 2 with neuropathy/[place]/morbid obesity/chronic normocytic normochromic anemia-on admission her creatinine was 1.26 and her baseline is 0.7. On the day of discharge her creatinine was 0.97. Also recommend she have follow-up CBC as well, her hemoglobin is at baseline however when she presented she was 9.3, and improved to 9.7 and then today was at 8.7 prior to discharge. She denies any bloody stools or hematuria and looking back on her previous lab work she appears to have chronic anemia. Since about December 17, 2017, her baseline hemoglobin has been around 9. 3. Her other medical diagnoses were evaluated and her home medications were continued where appropriate Patient Problems: Active and Suspected Problems POWELL (dyspnea on exertion) (Acute) - Physical Exam Vitals/I&O's: Vital Signs Temp Pulse Resp BP Pulse Ox 97.9 F 71 18 133/67 H 93 09/30/19 08:56 09/30/19 08:56 09/30/19 08:56 09/30/19 08:56 09/30/19 08:56 Oxygen Flow Rate (L/min) 4 Oxygen Delivery Method Nasal Cannula Weight: 276 lb 10.882 oz Body Mass Index (BMI) 49.1 Intake and Output for Last 24 Hours 09/28/19 09/29/19 09/30/19 23:59 23:59 23:59 Intake Total 1122.78 / 1122.78 1576.75 / 1816.75 480 / 480 Output Total 5050 / 5050 2900 / 3550 1200 / 1200 Balance -3927.22 / -3927.22 -1323.25 / -1733.25 -720 / -720 General: Alert, Oriented x3, Cooperative HEENT: Atraumatic, PERRLA, EOMI, Normocephalic Oral: Moist Mucosa Neck: Supple, No JVD Lungs: Clear to auscultation, Normal air movement, No rhonchi, No wheeze, No rales, Diminished Cardiovascular: Regular rate, Regular Rhythm, Normal S1, Normal S2, No murmurs Abdomen: Soft, Non Tender, Non-Distended, No Hepato-splenomegaly, Obese Extremities: Capillary Refill Less than 3 Seconds, Edema - Bilateral lower extremity?improving Skin: No rashes, No breakdown Neurological: Neuro grossly intact, Sensory exam intact to light touch and pain Psych/Mental Status: Normal Affect, Appropriate Microbiology Past 72 Hours 09/28/19 01:50 Mucosa - Nasopharyngeal Influenza Types A,B Direct FA (RYANNE) - Final Laboratory Results 09/29/19 11:16: POC Glucose 195 H 09/29/19 17:02: POC Glucose 144 H 09/29/19 20:56: POC Glucose 154 H 09/30/19 05:15: WBC 9.9, RBC 3.10 L, Hgb 8.7 L, Hct 29.1 L, MCV 93.9, MCH 28.1, MCHC 29.9 L, RDW Std Deviation 56.9 H, RDW Coeff of Akira 16.8 H, Plt Count 215, MPV 10.5, Immature Gran % (Auto) 0.400, Neut % (Auto) 65.7, Lymph % (Auto) 21.9, [place] % (Auto) 8.1, Eos % (Auto) 3.4, Baso % (Auto) 0.5, Absolute Neuts (auto) 6.5, Absolute Lymphs (auto) 2.17, Nucleated RBC % 0 09/30/19 05:15: Sodium 137, Potassium 4.0, Chloride 98, Carbon Dioxide 35.0 H, Anion Gap 4 L, BUN 35 H, Creatinine 0.97, Estim Creat Clear Calc 48.60, Est GFR (MDRD) Af Amer 74, Est GFR (MDRD) Non-Af 61, BUN/Creatinine Ratio 36.2 H, Glucose 138 H, Calcium 8.7 09/30/19 06:53: POC Glucose 142 H Current Medications Acetaminophen (Tylenol) 650 mg PO Q6H PRN PRN PRN Reason: Pain Score 1-10/Temp > 100.7 F Albuterol Sulfate (Ventolin Aerosols) 2.5 mg INHALATION Q2H PRN PRN PRN Reason: SOB &/OR WHEEZING Last Admin: 09/29/19 11:05 Dose: 2.5 mg Documented by: Albuterol/Ipratropium (Duoneb) 3 ml INHALATION Q6HWA.RT [facility] Last Admin: 09/30/19 07:23 Dose: 3 ml Documented by: Apixaban (Eliquis) 5 mg PO BID [facility] Last Admin: 09/30/19 09:11 Dose: 5 mg Documented by: Aspirin (Ecotrin) 81 mg PO DAILY [facility] Last Admin: 09/30/19 09:11 Dose: 81 mg Documented by: Atorvastatin Calcium (Lipitor) 80 mg PO QHS [facility] Last Admin: 09/29/19 20:58 Dose: 80 mg Documented by: Budesonide (Pulmicort Aerosol) 0.5 mg INHALATION Q12H.RT [facility] Last Admin: 09/30/19 07:24 Dose: 0.5 mg Documented by: Carvedilol (Coreg) 12.5 mg PO BID [facility] Last Admin: 09/30/19 09:11 Dose: 12.5 mg Documented by: Furosemide (Lasix) 40 mg IV BID@1000,1800 [facility] Last Admin: 09/30/19 09:10 Dose: 40 mg Documented by: Glucagon () 1 mg IM .X1 PRN PRN Reason: Hypoglycemia Sodium Chloride () 250 mls @ 15 mls/hr IV .[id number] PRN PRN Reason: Saline Flush Last Infusion: 09/29/19 08:49 Dose: 0 mls/hr Documented by: Sodium Chloride () 250 mls @ 15 mls/hr IV .[id number] PRN PRN Reason: Additional IVPB Infusion Dextrose (Dextrose 10%-Water) 250 mls @ 999 mls/hr IV .Q16M PRN; Protocol PRN Reason: HYPOGLYCEMIA Insulin Human Lispro (Humalog Kwikpen (Bkc)) 0 unit SC ACHS [facility]; Protocol Last Admin: 09/30/19 06:53 Dose: Not Given Documented by: Nicotine (Nicoderm Cq (Pbkc)) 21 mg TRANSDERM. DAILY [facility] Last Admin: 09/30/19 09:12 Dose: Not Given Documented by: Nystatin (Mycostatin Powder) 1 applic TOPICAL BID [facility]; Protocol Last Admin: 09/30/19 09:12 Dose: 1 applicatio Documented by: Ondansetron HCl (Zofran) 4 mg IV Q8H PRN PRN PRN Reason: NAUSEA/VOMITING Oxycodone HCl (Oxyir) 10 mg PO TID [facility] Last Admin: 09/30/19 06:00 Dose: 10 mg Documented by: Pregabalin (Lyrica) 225 mg PO BID [facility] Last Admin: 09/30/19 09:18 Dose: 225 mg Documented by: Sodium Chloride () 10 - 40 ml IV UD PRN PRN Reason: SALINE FLUSH Last Admin: 09/30/19 09:20 Dose: 10 ml Documented by: Sodium Chloride ([place] Nasal [place]) 2 spray NASAL TID PRN PRN PRN Reason: NASAL DRYNESS Discharge Activity: Return to Normal Activity Call your doctor if you observe: Fever of 101 or Higher, Shortness of breath, Dizziness, Fainting spells, Swelling in the ankles, Chest pain, Increased palpitations (irregular heartbeat) Home Medications: Medications to take at Discharge Aspirin E.C. [Ecotrin] 81 mg PO DAILY 09/07/14 Isosorbide Mononitrate [Isosorbide Mononitrate ER] 60 mg PO DAILY 09/07/14 Lisinopril [Zestril] 20 mg PO DAILY 09/07/14 metFORMIN HCl [Glucophage] 1,000 mg PO BID 09/07/14 Atorvastatin Calcium [Lipitor] 80 mg PO QHS 03/19/16 Pregabalin [Lyrica] 225 mg PO BID 03/19/16 Budesonide/Formoterol 160/4.5 [Symbicort 160/4.5 Mcg Inhaler (SP)] 2 puff INHALATION BID PRN 12/15/17 Carvedilol [Coreg (Beta Adriana)] 12.5 mg PO BID 12/15/17 Furosemide [Lasix] 40 mg PO BID 12/15/17 Oxycodone HCl/Acetaminophen [Oxycodone-Acetaminophen 10-325] 2 tab PO TID 02/27/19 Albuterol Inhaler [Ventolin Hfa] 2 puff IH Q4H PRN PRN 09/28/19 Tiotropium [place] [Spiriva] 18 mcg IH DAILY 09/28/19 Apixaban [Eliquis] 5 mg PO BID #60 tab 09/30/19 Following Prescrptions Were Given to Patient: Apixaban [Eliquis] 5 mg PO BID #60 tab Transmission Status: Received by [facility] Primary Care Physician: Dale Vivar DO [Primary Care Provider] - Please follow up with your Primary Care Physician in: 3-5 days Please Follow Up With: Piyush Lopez MD When: 2-4 weeks Disposition: Home Minutes spent on discharge:: 35 Patient Condition:: Stable Medical Necessity - Tobacco Use Smoking Status: Current every day smoker Tobacco Use: Cigarettes Meaningful Use Info Meaningful Use Diagnoses (Choose all that apply): CHF - CHF SHANICE/ARB ordered at discharge?: Yes Documented LVEF (%): 65 Code Visit Inpatient E&M: 15523 Disch Hosp
--- NOTE | 2019-09-30 11:34 | CASEMGMT ---
SW completed Healthcare POA and Healthcare LW paperwork with patient. Copies were made and given to patient along with originals. A copy of each was also placed in patient's chart. SW also discussed Palliative Care with patient and she is open to SW making a referral. SW will call Palliative Care with referral and also fax over information. Jessica MIRANDA MSW
[2019-09-30] MEDS: Insulin Lispro 100 UNIT/ML INSULN.PEN SC (11:39)
--- NOTE | 2019-09-30 11:42 | CASEMGMT ---
Palliative Care referral faxed to [facility]. Jessica MIRANDA SNAP ATTACHER
[2019-09-30 11:51] LABS: Bedside Glucose 154 mg/dL (70-110)
--- NOTE | 2019-09-30 11:56 | CASEMGMT ---
Addendum entered by Zarina Khalil 09/30/19 12:31: Pt was also updated on all at this time, voices understanding. Pt states no further questions/concerns/needs at this time. Pt awaiting discharge. Raffi GARY CM Original Note: Per Anny GARY, pt requires 3 liters continous at this time. New order obtained and to be faxed to [facility] [place] once signed. Pt to be sent home on Eliquis and med already e-scribed to [facility] retail pharmacy previously. Per Jonathon in [facility] pharmacy, pt's co-pay for Eliquis is $3.90 and they did apply a 30 day free trial card for the 1st month already. [facility]. Per therapy, pt is capable of moving further but cannot d/t her SOB. [facility] to notify them of pt discharge at this time-voice understanding, and d/c summ/instructions, H&P, and resumption of care order faxed to [facility] at this time. Raffi GARY CM
--- NOTE | 2019-10-01 15:37 | CASEMGMT ---
COOKIE C[place] Discharge F/U Phone Call LACE: 10 Strata: 3 Discharge date: 09/30/19 Call date: 10/01/19 Call time: [id number] Admission dx: Acute exacerbation of HF Pt has been 'doing alright' since discharge. Pt states no questions regarding discharge instructions/medications at this time. Pt states plans to keep f/u appt's. Pt states no suggestions for WC at this time. Pt voices no further questions/concerns/needs at this time. SStaten COOKIE COTA
== END 2019-09-30 13:59 | disposition home or self-care (01) | DRG 292 ==
LOC: ED 02:24 → PCU 05:12
PROVIDERS: Admitting Provider Hospitalist; Emergency Provider Emergency Medicine; Family Provider Student in an Organized Health Care Education/Training Program; PCP Student in an Organized Health Care Education/Training Program; Referring Provider Hospitalist; Visit Provider Family Medicine
DX: I11.0 Hypertensive heart disease with heart failure (principal); N17.9 Acute kidney failure, unspecified; Z68.43 Body mass index [BMI] 50.0-59.9, adult; I50.33 Acute on chronic diastolic (congestive) heart failure; I25.10 Atherosclerotic heart disease of native coronary artery without angina pectoris; Z95.5 Presence of coronary angioplasty implant and graft; I48.91 Unspecified atrial fibrillation; E66.01 Morbid (severe) obesity due to excess calories; E11.40 Type 2 diabetes mellitus with diabetic neuropathy, unspecified; E11.51 Type 2 diabetes mellitus with diabetic peripheral angiopathy without gangrene; D64.9 Anemia, unspecified; J44.9 Chronic obstructive pulmonary disease, unspecified; Z99.81 Dependence on supplemental oxygen; Z79.82 Long term (current) use of aspirin; Z79.84 Long term (current) use of oral hypoglycemic drugs; Z79.02 Long term (current) use of antithrombotics/antiplatelets; Z79.899 Other long term (current) drug therapy; Z79.51 Long term (current) use of inhaled steroids; F17.210 Nicotine dependence, cigarettes, uncomplicated; I27.20 Pulmonary hypertension, unspecified; G89.29 Other chronic pain; Z79.891 Long term (current) use of opiate analgesic; F12.10 Cannabis abuse, uncomplicated; E78.5 Hyperlipidemia, unspecified
CPT/HCPCS: 36415; 71045; 71275; 80048; 82962; 83880; 84484; 85025; 87804; 93005; 93306; 94640; 97162; 97166; 97530; 97535; 97802; 99251; 99285; 99406; J7040; J7050; Q9957; Q9967; A4216; C8929; G0463; J1940

== ENCOUNTER 2019-10-13 11:29 | Inpatient (IN) | payer MEDICARE, MEDICAID, SELFPAY ==
[2019-09-28 06:35] VITALS: BMI 49.1
[2019-10-13] VITALS (12 sets, daily range): BP systolic 98–120; BP diastolic 50–87; PULSE 63–79; RESP 10–20; TEMP 36.4–36.8; O2SAT 95–100; BMI 50.2; BMI 48.6; BMI 48.7
--- NOTE | 2019-10-13 12:47 | VDLE_ITS ---
Reason For Study: Swelling RIGHT GSV is normal. CFV is compressible, spontaneous, phasic, competent and demonstrates normal augmentation. FV is compressible, spontaneous, phasic, competent and demonstrates normal augmentation. POP V is compressible, spontaneous, phasic, competent and demonstrates normal augmentation. T/P Trunk is compressible. PTV is compressible. RT PerV is compressible. Calf veins difficult to visualize due to pt body habitus. Procedure Exam performed portable in ED. A preliminary report was called and/or faxed to ED. Interpretation Summary Deep veins of the right lower extremity are patent and compressible segmentally. There is no evidence of right lower extremity deep vein thrombosis. Valvular competence appears intact within the proximal deep venous system on the right . The right great saphenous vein appears patent and compressible segmentally. Calf veins were difficult to visualize due to the patient's body habitus. Ordering Physician: Caden Gentile Referring Physician: Dale Langston Performed By: Zarina Meng RVT
--- NOTE | 2019-10-13 12:48 | EKG12_ITS ---
Test Reason : SOB Blood Pressure : / mmHG Vent. Rate : 066 BPM Atrial Rate : 326 BPM P-R Int : 000 ms QRS Dur : 098 ms QT Int : 398 ms P-R-T Axes : 000 004 -83 degrees QTc Int : [address] & T wave abnormality, consider anterior ischemia Abnormal ECG Confirmed by SEMAJ MEEK, TEOFILO ([id number]), art editor TARIQ SAUNDERS ([id number]) on 10/15/2019 9:52:05 AM Referred By: ARASELI Confirmed By:TEOFILO CHA MD
--- NOTE | 2019-10-13 12:48 | RAD_ITS ---
STUDY: X-RAY CHEST REASON FOR EXAM: Female, 69 years old. SHORT OF BREATH TECHNIQUE: PA and lateral views of the chest. COMPARISON: Comparison is made with prior study dated September 28, 2019. FINDINGS: EKG electrodes are seen. Mild increased markings at the lung bases suggestive of bibasilar atelectasis. There is no demonstrated pleural abnormality. Sternal cerclage wires and vascular clips are present from a prior sternotomy and coronary artery bypass graft procedure (CABG). Normal mediastinum and theresa. Normal visualized pulmonary arteries. There is atherosclerotic tortuosity of the aortic arch and descending thoracic aorta. There is a dextroscoliosis of the thoracic spine. There is degenerative osteoarthritis of the bilateral shoulders. There is no demonstrated abnormality of the visualized soft tissue structures of the upper abdomen. RAD/Chest PA and Lateral IMPRESSION: Increased markings at the lung bases suggestive of bibasilar atelectasis. Electronically Signed: Colten Spicer, at 13:51 EST , Service support ,
[2019-10-13 13:01] LABS: Absolute Lymphocyte Count 1.69 X10^3/uL (0.83-4.51); Absolute Neutrophil Count 7.9 X10^3/uL (2.0-7.7); Basophil# 0.05 X10^3/uL; Basophil% 0.5 % (0-1); Eosinophil# 0.36 X10^3/uL; Eosinophils% 3.3 % (0-5); Hematocrit 29.9 % (37-47); Hemoglobin 8.6 g/dL (12.0-15.0); Lymphocyte # 1.69 X10^3/ul (4.0); Lymphocyte % 15.5 % (19-41); Mean Corp Hgb Conc 28.8 g/dL (32-36); Mean Corpuscular Hgb 27.6 pg (27.0-32.0); Mean Corpuscular Volume 95.8 fL (81-99); Mean Platelet Vol. 10.4 fl (6.2-12.0); Monocyte# 0.84 X10^3/uL; Monocyte% 7.7 % (0-10); NRBC Flagged by Analyzer 0 % (0-5); Neutrophil # 7.94 X10^3/uL (2.7-7.7); Neutrophil % 72.5 % (47-70); Platelet Count 240 K/mm3 (150-450); RBC Distribution Width CV 17.2 % (11.6-14.6); RBC Distribution Width SD 59.6 fl (35.1-43.9); Red Blood Count 3.12 M/mm3 (4.2-5.4); White Blood Count 10.9 K/mm3 (4.4-11.0)
[2019-10-13] MEDS: Furosemide 40 MG/4 ML Vial IV ×2 (13:09→17:49)
[2019-10-13 13:15] LABS: ALB/GLOB Ratio 0.7 RATIO (0.9-2.4); AST(SGOT) 11 U/L (15-37); Alanine Aminotransfer ALT/SGPT 19 U/L (13-56); Albumin, Serum 2.9 g/dL (3.2-5.0); Alkaline Phosphatase 90 U/L (45-117); Anion Gap 4 (5-15); BUN 32 mg/dL (7-18); BUN/Creat Ratio 28.1 RATIO (10-20); Calcium,Total 8.8 mg/dL (8.5-10.1); Chloride 103 mmol/L (98-107); Creatinine, Serum 1.14 mg/dL (0.55-1.02); EST Glomerular Filtration Rate 51 mL/min (>60); Est Glom Filt Rate - Afr Amer 61 mL/min (>60); Estimated Creatinine Clearance 41.35 ml/min; Glucose 100 mg/dL (74-106); Potassium 4.6 mmol/L (3.5-5.1); Protein, Total 6.9 g/dL (6.4-8.2); Sodium Level 137 mmol/L (136-145)
[2019-10-13 13:31] LABS: BNP,B-Type NATRIURETIC PEPTIDE 427.8 pg/mL (0-100)
--- NOTE | 2019-10-13 14:45 | ED.DCSUM_ITS ---
- ER Visit Summary Date of Service: 10/13/19 Chief Complaint: Shortness of breath History of Present Illness: The patient is a 69 F who presents with shortness of breath and lower extremity edema that is been getting progressively worse over the past week. Patient was recently admitted for congestive heart failure. Patient states that since her discharge she has had a 15 pound weight gain. Patient states she has been taking her Lasix 40 mg daily as prescribed previously. Patient states this was not adjusted while she was in the hospital. Patient states her breathing is worse with any exertion and improves with rest. Patient denies any chest pain. Patient denies any fevers or chills. Patient does admit to some lower extremity edema that is worse on the right. Physical Examination: Vital signs are stable. Patient is afebrile. Patient is in no acute distress. Oral mucosa is pink and moist. Neck is supple. Trachea is midline. There is no JVD. Heart was irregularly irregular. Lungs showed rales in the bases bilaterally. There is adequate respiratory effort. Abdomen is soft. Bowel sounds are normal. There is no tenderness. There is no rebound or guarding noted. Extremities are intact. There is 2-3+ pitting edema of the lower extremities bilaterally, worse on the right. Cranial nerves II through XII are intact. There are no focal motor or sensory deficits noted. Test Results: EKG showed atrial fibrillation with a rate of 66. There is some T wave inversion in the anterior leads. This was unchanged compared to previous EKG dated 09/28/2019. PA and lateral chest x-ray shows bibasilar atelectasis. This was interpreted by the radiologist and myself. CBC shows a mild anemia with a hemoglobin of 8.6. Basic metabolic profile shows slightly elevated creatinine of 1.14. BNP was elevated at 427.8. Troponin was normal. Emergency Department Course and Treatment: Patient was given a dose of Lasix here in the emergency department. Patient felt better after this. Case was discussed with the hospitalist. He will admit the patient to his service. Patient understood and was agreeable with the plan. All questions were answered. Disposition: Admit to hospital Impression: CHF exacerbation This note was generated with [employer] software. It may contain incorrect words, spelling, and punctuation that were not noted in review of the chart prior to signing ED Disposition - Plan for ED Patient: Disposition: Home or Assisted Living Diagnosis: Acute exacerbation of CHF (congestive heart failure) Referrals: Dale Vivar DO [Primary Care Provider] -
--- NOTE | 2019-10-13 15:21 | HP.PCM_ITS ---
<Carey Alfaro - Last Filed: 10/13/19 15:35> Problem List (1) History of peripheral arterial disease Status: Chronic (2) Cellulitis of left leg without foot Status: Resolved (3) Acute exacerbation of CHF (congestive heart failure) Status: Acute (4) Coronary artery disease Status: Chronic Comment: Status post stents (5) Hypertension Status: Chronic (6) COPD (chronic obstructive pulmonary disease) Status: Chronic (7) Neuropathy, diabetic Status: Chronic (8) Type 2 diabetes mellitus Status: Chronic History of Present Illness Date of Admission: 10/13/19 Chief Complaint: Shortness of breath, weight gain, lower extremity swelling. The patient is a 69 year old F who presents emergency room due to increased shortness of breath, lower extremity swelling and weight gain. Patient reports in the past 3 days she has gained approximately 10 pounds. She reports increased shortness of breath and is unable to lie flat to sleep. Patient recently discharged 09/30/2019 following treatment for diastolic CHF. She denies chest pain. Denies cough, fever, chills. Her other past medical history includes CAD with history of stents, diastolic CHF, peripheral arterial disease, COPD with chronic toxic respiratory failure, hypertension, hyperlipidemia, type 2 diabetes mellitus, morbid obesity. Past Medical History Past Medical History (Chronic Problems): Chronic Problems History of peripheral arterial disease (Chronic) Coronary artery disease (Chronic) Status post stents Hypertension (Chronic) COPD (chronic obstructive pulmonary disease) (Chronic) Neuropathy, diabetic (Chronic) Type 2 diabetes mellitus (Chronic) Allergies diltiazem HCl [From Cardizem] Adverse Reaction (Mild, Verified 10/13/19 11:36) Swelling cephalexin [From Keflex] Adverse Reaction (Verified 10/13/19 11:36) Upset Stomach Home Medications: Ambulatory Orders Medication Instructions Recorded Aspirin E.C. [Ecotrin] 81 mg PO DAILY 09/07/14 Lisinopril [Zestril] 5 mg PO DAILY 09/07/14 metFORMIN HCl [Glucophage] 1,000 mg PO BID 09/07/14 Atorvastatin Calcium [Lipitor] 80 mg PO QHS 03/19/16 Pregabalin [Lyrica] 225 mg PO BID 03/19/16 Budesonide/Formoterol 160/4.5 2 puff INHALATION BID PRN 12/15/17 [Symbicort 160/4.5 Mcg Inhaler (SP)] Carvedilol [Coreg (Beta Adriana)] 12.5 mg PO BID 12/15/17 Furosemide [Lasix] 40 mg PO BID 12/15/17 Oxycodone HCl/Acetaminophen 1 - 2 tab PO Q8H PRN PRN 02/27/19 [Oxycodone-Acetaminophen 10-325] Albuterol Inhaler [Ventolin Hfa] 2 puff IH Q4H PRN PRN 09/28/19 Tiotropium [place] [Spiriva] 18 mcg IH DAILY 09/28/19 Apixaban [Eliquis] 5 mg PO BID 10/13/19 Furosemide [Lasix] 20 mg PO PRN PRN 10/13/19 Isosorbide Mononitrate [Isosorbide 60 mg PO DAILY 10/13/19 Mononitrate ER] Vitamin B Complex 1 ea PO QHS 10/13/19 Surgical History: coronary bypass surgery, herniorrhaphy, - - cardiac stent placement, left elbow surgery for nerve entrapment, left heel spur surgery x2, left lower extremity angioplasty Psychiatric History: No pertinent psych hx 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 Denies: Chills, Fever HEENT: Denies: Head Aches, Sinus Congestion, Sinus Drainage Cardiovascular: Reports: Edema - Bilateral lower extremity, right greater than left. Denies: Chest Pain, Light Headedness, Palpitations, Syncope Respiratory: Reports: Shortness of Breath. Denies: Cough, Sputum production, Wheezing Gastrointestinal: Denies: Abdominal Pain, Nausea, Vomiting Genitourinary: Denies: Dysuria Musculoskeletal: Denies: Joint Pain, Joint Tenderness Skin: Denies: Rash, Wounds Neurological: Denies: Numbness, Tingling, Focal weakness Psychiatric: Denies: Anxiety, Depression, Homicidal Ideations, Suicidal Ideations Hematologic/ Lymphatic: Denies: Easy Bruising, Easy Bleeding VTE Information - Inpt Only VTE Present on Admission: No VTE Mechan Device Prophylaxis: None VTE Pharm Prophylaxis ordered?: No Reason prophylaxis not ordered:: Treatment Not Indicated - On Eliquis Patient Problems: Active and Suspected Problems Acute exacerbation of CHF (congestive heart failure) (Acute) - Physical Exam Vitals/I&O's: Vital Signs Temp Pulse Resp BP Pulse Ox 98.1 F 72 10 L 101/80 98 10/13/19 11:34 10/13/19 14:23 10/13/19 14:23 10/13/19 14:23 10/13/19 14:23 Oxygen Flow Rate (L/min) 2 Oxygen Delivery Method Nasal Cannula Weight: 292 lb 8.854 oz Body Mass Index (BMI) 50.2 General: Alert, Oriented x3, Cooperative HEENT: Atraumatic, PERRLA, EOMI, Normocephalic Neck: Supple, No JVD, Negative Carotid Bruits Lungs: Clear to auscultation, Diminished Cardiovascular: Normal S1, Normal S2, - - A. fib, rate controlled Abdomen: Bowel Sounds Present, Soft, Non Tender, Non-Distended, Obese Extremities: No edema - +3 lower extremity edema Skin: No rashes, No breakdown, - - Chronic skin changes bilateral lower extremities, healed ulceration left lateral leg and right medial leg Musculoskeletal: No Tenderness to Palpation of Joints or Extremities Neurological: Cranial nerves II-XII grossly intact, Neuro grossly intact Psych/Mental Status: Normal Affect, Appropriate Laboratory Results 10/13/19 11:50: WBC 10.9, RBC 3.12 L, Hgb 8.6 L, Hct 29.9 L, MCV 95.8, MCH 27.6, MCHC 28.8 L, RDW Std Deviation 59.6 H, RDW Coeff of Akira 17.2 H, Plt Count 240, MPV 10.4, Immature Gran % (Auto) 0.500, Neut % (Auto) 72.5 H, Lymph % (Auto) 15.5 L, [place] % (Auto) 7.7, Eos % (Auto) 3.3, Baso % (Auto) 0.5, Absolute Neuts (auto) 7.9 H, Absolute Lymphs (auto) 1.69, Nucleated RBC % 0 10/13/19 11:50: Sodium 137, Potassium 4.6, Chloride 103, Carbon Dioxide 30.0, Anion Gap 4 L, BUN 32 H, Creatinine 1.14 H, Estim Creat Clear Calc 41.35, Est GFR (MDRD) Af Amer 61, Est GFR (MDRD) Non-Af 51 L, BUN/Creatinine Ratio 28.1 H, Glucose 100, Calcium 8.8, Total Bilirubin 0.30, AST 11 L, ALT 19, Alkaline Phosphatase 90, Troponin I < 0.015, Total Protein 6.9, Albumin 2.9 L, Globulin 4.0, Albumin/Globulin Ratio 0.7 L 10/13/19 11:50: B-Natriuretic Peptide 427.8 H Assessment/Plan All Active Problems Acute exacerbation of CHF (congestive heart failure) (Acute) Cellulitis of left leg without foot (Resolved) 1. Acute on chronic diastolic CHF-BNP 427. Chest x-ray demonstrated atelectasis. Recent echo 09/29/2019 demonstrated an EF of 65%. Patient reports 10 pound weight gain. IV Lasix 40 mg twice daily. Strict I&O. Daily weight. David wraps bilateral lower extremities. 2. CAD with history of stents-continue aspirin, statin, beta-dariana, DAVID inhibitor. 3. Paroxysmal atrial fibrillation-continue beta-adriana, Eliquis regimen. Rate controlled. 4. Peripheral arterial disease-continue aspirin, statin, Eliquis. 5. COPD with chronic hypoxic respiratory failure-on baseline home O2 requirements. Continue supplement oxygen to maintain O2 at or above 90%. Albuterol aerosol as needed. 6. Hypertension-stable, continue carvedilol, lisinopril regimen. 7. Hyperlipidemia-continue statin. 8. Type 2 diabetes mellitus-hold oral regimen. Accu-Cheks with sliding scale insulin. 9. Chronic normocytic anemia-stable, trend CBC. 10. Morbid obesity- encouraged diet and lifestyle modifications. DVT prophylaxis-Eliquis This patient was seen by DEANDRE Calzada under the supervision of Dr. Pardo. <Hussain Pardo F - Last Filed: 10/13/19 19:17> History of Present Illness The patient is a 69 year old F [] Past Medical History Allergies diltiazem HCl [From Cardizem] Adverse Reaction (Mild, Verified 10/13/19 11:36) Swelling cephalexin [From Keflex] Adverse Reaction (Verified 10/13/19 11:36) Upset Stomach - Physical Exam Vitals/I&O's: Vital Signs Temp Pulse Resp BP Pulse Ox 97.6 F L 74 20 H 120/87 H 98 10/13/19 16:22 10/13/19 16:25 10/13/19 16:22 10/13/19 16:22 10/13/19 16:22 Oxygen Flow Rate (L/min) 2 Oxygen Delivery Method Nasal Cannula Weight: 283 lb 12.8 oz Body Mass Index (BMI) 48.6 Laboratory Results 10/13/19 11:50: WBC 10.9, RBC 3.12 L, Hgb 8.6 L, Hct 29.9 L, MCV 95.8, MCH 27.6, MCHC 28.8 L, RDW Std Deviation 59.6 H, RDW Coeff of Akira 17.2 H, Plt Count 240, MPV 10.4, Immature Gran % (Auto) 0.500, Neut % (Auto) 72.5 H, Lymph % (Auto) 15.5 L, [place] % (Auto) 7.7, Eos % (Auto) 3.3, Baso % (Auto) 0.5, Absolute Neuts (auto) 7.9 H, Absolute Lymphs (auto) 1.69, Nucleated RBC % 0 10/13/19 11:50: Sodium 137, Potassium 4.6, Chloride 103, Carbon Dioxide 30.0, Anion Gap 4 L, BUN 32 H, Creatinine 1.14 H, Estim Creat Clear Calc 41.35, Est GFR (MDRD) Af Amer 61, Est GFR (MDRD) Non-Af 51 L, BUN/Creatinine Ratio 28.1 H, Glucose 100, Calcium 8.8, Total Bilirubin 0.30, AST 11 L, ALT 19, Alkaline Phosphatase 90, Troponin I < 0.015, Total Protein 6.9, Albumin 2.9 L, Globulin 4.0, Albumin/Globulin Ratio 0.7 L 10/13/19 11:50: B-Natriuretic Peptide 427.8 H Current Medications Albuterol Sulfate (Ventolin Aerosols) 2.5 mg INHALATION Q2H PRN PRN PRN Reason: SHORTNESS OF BREATH Albuterol/Ipratropium (Duoneb) 3 ml INHALATION Q4HWA.RT PRN PRN Reason: Wheeze Apixaban (Eliquis) 5 mg PO BID JERAMIE Aspirin (Ecotrin) 81 mg PO DAILY JERAMIE Atorvastatin Calcium (Lipitor) 80 mg PO QHS JERAMIE Carvedilol (Coreg) 12.5 mg PO BID [facility] Dextrose (D50w Syringe) 0 gm IV X1 PRN; Protocol PRN Reason: Hypoglycemia Furosemide (Lasix) 40 mg IV BID@1000,1800 JERAMIE Glucagon () 1 mg IM .X1 PRN PRN Reason: Hypoglycemia Insulin Human Lispro (Humalog Kwikpen (Bkc)) 0 unit SC ACHS JERAMIE; Protocol Isosorbide Mononitrate (Imdur) 60 mg PO DAILY JERAMIE Lisinopril (Zestril) 5 mg PO DAILY [facility] Non-Formulary Medication (Budesonide/Formoterol 160/4.5) 2 puff INHALATION BID PRN PRN Reason: BREATHING Oxycodone HCl (Oxyir) 1 - 2 mg PO Q8H PRN PRN PRN Reason: Pain Score 6-10/10 Pregabalin (Lyrica) 225 mg PO BID JERAMIE Sodium Chloride () 10 - 40 ml IV UD PRN PRN Reason: SALINE FLUSH Code Visit Addendum: Dr. Pardo I personally examined the patient and reviewed the chart. I agree with the above. 69-year-old female who was recently admitted for a CHF exacerbation was diuresed with an Lasix drip and discharged home to resume her home Lasix regimen. At that time how to dose her Lasix was discussed that she was also on 20 mg p.o. Lasix as needed, however she says that she is gained 10 pounds in the last 3 days and has been more short of breath as well as significant orthopnea. Her BNP is slightly elevated though not as high as it had been on her previous admission. She is started on IV Lasix 40 mg twice daily and will continue to monitor. She states that her home health care nurse told her not to take the extra Lasix as ordered because she was concerned that it would drop her potassium. I did some more teaching with the patient about needing to check her weight and taking extra Lasix if necessary, can always give her p.o. potassium on the outpatient side if necessary. She is also noting multiple areas of ecchymosis on her left arm that have started since being initiated on Eliquis for her new A. fib on her previous admission. Will likely need to touch base with her neonatal intensive care nurse about continuing both the aspirin and the Eliquis or returning back to aspirin and Plavix given her previous coronary artery disease history and stents. Inpatient E&M: [id number] Init Hosp L2
--- NOTE | 2019-10-13 15:39 | CASEMGMT ---
Patient has a Healthcare Power of Portfolio Manager and a Healthcare Living Will on file at [facility]. Jessica MIRANDA MSW
[2019-10-13] MEDS: oxyCODONE 5 MG Tablet PO (18:15)
[2019-10-13] MEDS: Albuterol 2.5 MG/3 ML VIAL.NEB. INHALATION (18:57)
[2019-10-13] MEDS: Budesonide Respules 0.5 MG/2 ML AMPUL.NEB. INHALATION (18:57)
[2019-10-13 20:35] LABS: Bedside Glucose 139 mg/dL (70-110)
[2019-10-13] MEDS: Atorvastatin Calcium 80 MG Tablet PO (21:33)
[2019-10-13] MEDS: APIXABAN 5 MG TABLET PO (21:33)
[2019-10-13] MEDS: Carvedilol 12.5 MG Tablet PO (21:33)
[2019-10-13] MEDS: Pregabalin 75 MG Capsule 225 MG PO (21:36)
[2019-10-13] MEDS: Ipratropium/Albuterol Sulfate 3 ML AMPUL.NEB INHALATION (23:00)
[2019-10-14] VITALS (15 sets, daily range): BP systolic 92–101; BP diastolic 36–51; PULSE 61–90; RESP 16–20; TEMP 36.7–36.9; O2SAT 95–98
[2019-10-14 06:05] LABS: Absolute Lymphocyte Count 1.63 X10^3/uL (0.83-4.51); Absolute Neutrophil Count 6.4 X10^3/uL (2.0-7.7); Basophil# 0.04 X10^3/uL; Basophil% 0.4 % (0-1); Eosinophil# 0.22 X10^3/uL; Eosinophils% 2.4 % (0-5); Hematocrit 29.8 % (37-47); Hemoglobin 8.6 g/dL (12.0-15.0); Lymphocyte # 1.63 X10^3/ul (4.0); Mean Corp Hgb Conc 28.9 g/dL (32-36); Mean Corpuscular Hgb 27.5 pg (27.0-32.0); Mean Corpuscular Volume 95.2 fL (81-99); Mean Platelet Vol. 10.4 fl (6.2-12.0); Monocyte# 0.68 X10^3/uL; Monocyte% 7.5 % (0-10); NRBC Flagged by Analyzer 0 % (0-5); Neutrophil # 6.44 X10^3/uL (2.7-7.7); Neutrophil % 71.1 % (47-70); Platelet Count 238 K/mm3 (150-450); RBC Distribution Width CV 17.1 % (11.6-14.6); RBC Distribution Width SD 58.4 fl (35.1-43.9); Red Blood Count 3.13 M/mm3 (4.2-5.4); White Blood Count 9.1 K/mm3 (4.4-11.0)
[2019-10-14 06:27] LABS: Anion Gap 0 (5-15); BUN 33 mg/dL (7-18); BUN/Creat Ratio 30.6 RATIO (10-20); Calcium,Total 8.8 mg/dL (8.5-10.1); Chloride 103 mmol/L (98-107); Creatinine, Serum 1.08 mg/dL (0.55-1.02); EST Glomerular Filtration Rate 54 mL/min (>60); Est Glom Filt Rate - Afr Amer 65 mL/min (>60); Estimated Creatinine Clearance 43.65 ml/min; Glucose 115 mg/dL (74-106); Potassium 4.9 mmol/L (3.5-5.1); Sodium Level 137 mmol/L (136-145)
[2019-10-14] MEDS: Albuterol 2.5 MG/3 ML VIAL.NEB. INHALATION (06:42)
[2019-10-14] MEDS: Budesonide Respules 0.5 MG/2 ML AMPUL.NEB. INHALATION ×2 (06:42→21:21)
[2019-10-14 06:46] LABS: Bedside Glucose 124 mg/dL (70-110)
[2019-10-14] MEDS: APIXABAN 5 MG TABLET PO ×2 (09:32→21:09)
[2019-10-14] MEDS: oxyCODONE 5 MG Tablet PO ×2 (09:32→17:54)
[2019-10-14] MEDS: Aspirin E.C. 81 MG Tablet PO (09:33)
[2019-10-14] MEDS: Pregabalin 75 MG Capsule 225 MG PO ×2 (09:33→21:15)
[2019-10-14] MEDS: Lisinopril 5 MG Tablet PO (09:33)
[2019-10-14] MEDS: Isosorbide Mononitrate 60 MG Tablet PO (09:33)
[2019-10-14] MEDS: Carvedilol 12.5 MG Tablet PO ×2 (09:33→21:09)
[2019-10-14] MEDS: Furosemide 40 MG/4 ML Vial IV ×2 (09:36→17:00)
[2019-10-14] MEDS: 0.9% Saline Lock 10 ML Syringe IV (09:36)
--- NOTE | 2019-10-14 09:59 | CASEMGMT ---
Patient has a Healthcare Power of Senior Net Engineer and a Healthcare Living Will on file at [facility]. Jessica MIRANDA MSW
[2019-10-14] MEDS: Ipratropium/Albuterol Sulfate 3 ML AMPUL.NEB INHALATION ×4 (10:55→21:21)
[2019-10-14] MEDS: Insulin Lispro 100 UNIT/ML INSULN.PEN SC ×3 (12:14→21:09)
[2019-10-14 12:36] LABS: Bedside Glucose 164 mg/dL (70-110)
--- NOTE | 2019-10-14 12:50 | CHAPLAIN ---
patient was offered spiritual care and she responded that she is wanting to rest now; a follow up attempt will be welcomed by patient
--- NOTE | 2019-10-14 13:31 | CASEMGMT ---
RN BEATA Readmission Note Previous Admission: 09.28-09.30.2019 Diagnosis: CHF F/U appointments: [facility] was seeing patient on dc. Pt cancelled f/u appoints- states her car does not have a window. COOKIE COTA discussed options for transportation including asking friend or her for a ride. Pt states she could do this for future f/u. [facility] transportation brochure given to patient for hospital appts, but this is not option for physician f/u. DC Disposition: Home with [facility]. FX: Current Admission Presentation: CHF Intro role of CM and purpose of RN CM assessment to patient in room. Demographics, PCP and Pharmacy verified. DPOA is her friend, Ana Paula Cobian. Pt refused therapy today. Per nursing, pt is able to get OOB to ambulate to bathroom but complains of pain due to neuropathy in feet. -Call to [facility] Home Health: Spoke with nurse Emily Faulkner. States pt is home alone in afternoons and relies on family for meals. Nurse is working on meals for patient on dc. Discussed pt difficulty with transportation and nurse is aware. RN BEATA let her know this was addressed with pt in regards to asking friend/family with assist for transportation. nurse will f/u. Pt may benefit from Visiting Physician, however nurse states pt would not be willing to give up Dr. Vivar at this time, but would consider if pt continues to have difficulty getting to office for f/u. Nurse also states they have discussed Passport services for patient, but she has refused because she does not wish to disclose financial information. ELIF has spoken with pt over phone. COOKIE COTA added SW to [facility] order for further involvement on dc. -Palliative Care referral was made last admission. Nurse states she does not think [facility] contacted her yet. ELIF Langford updated re: this. -PT/OT evals pending. If needed, can be added to [facility] orders prior to dc. DC PLAN: Home with [facility]. Serafin CARR RN ACM
--- NOTE | 2019-10-14 14:15 | PCM.PROGNOTE ---
<Carey Alfaro - Last Filed: 10/14/19 14:21> Patient Problems: Active and Suspected Problems Acute exacerbation of CHF (congestive heart failure) (Acute) Subjective: Patient seen and examined. Reports mild improvement in breathing however still increased above her baseline. Lower extremity edema improving. Complains of vaginal irritation. - Physical Exam Vitals/I&O's: Vital Signs Temp Pulse Resp BP Pulse Ox 98.1 F 83 16 101/51 L 96 10/14/19 09:15 10/14/19 11:00 10/14/19 10:54 10/14/19 09:15 10/14/19 09:15 Oxygen Flow Rate (L/min) 3 Oxygen Delivery Method Nasal Cannula Weight: 281 lb 15.539 oz Body Mass Index (BMI) 48.6 Intake and Output for Last 24 Hours 10/12/19 10/13/19 10/14/19 23:59 23:59 23:59 Intake Total 120 / 120 180 / 180 Output Total 700 / 700 1500 / 1500 Balance -580 / -580 -1320 / -1320 General: Alert, Oriented x3, Cooperative HEENT: Atraumatic, PERRLA, EOMI, Normocephalic Neck: Supple, No JVD, Negative Carotid Bruits Lungs: Clear to auscultation, Diminished Cardiovascular: Regular rate, Regular Rhythm, Normal S1, Normal S2, No murmurs Abdomen: Bowel Sounds Present, Soft, Non Tender, Non-Distended, Obese Extremities: No clubbing, No cyanosis, Edema - +2 bilateral lower extremity Skin: - - Scattered ecchymosis bilateral upper extremities. Healed ulcerations bilateral lower extremities. Musculoskeletal: No Tenderness to Palpation of Joints or Extremities Neurological: Cranial nerves II-XII grossly intact, Neuro grossly intact Psych/Mental Status: Normal Affect, Appropriate Laboratory Results 10/13/19 20:29: POC Glucose 139 H 10/14/19 05:50: WBC 9.1, RBC 3.13 L, Hgb 8.6 L, Hct 29.8 L, MCV 95.2, MCH 27.5, MCHC 28.9 L, RDW Std Deviation 58.4 H, RDW Coeff of Akira 17.1 H, Plt Count 238, MPV 10.4, Immature Gran % (Auto) 0.600, Neut % (Auto) 71.1 H, Lymph % (Auto) 18.0 L, Clinch % (Auto) 7.5, Eos % (Auto) 2.4, Baso % (Auto) 0.4, Absolute Neuts (auto) 6.4, Absolute Lymphs (auto) 1.63, Nucleated RBC % 0 10/14/19 05:50: Sodium 137, Potassium 4.9, Chloride 103, Carbon Dioxide 34.0 H, Anion Gap 0 L, BUN 33 H, Creatinine 1.08 H, Estim Creat Clear Calc 43.65, Est GFR (MDRD) Af Amer 65, Est GFR (MDRD) Non-Af 54 L, BUN/Creatinine Ratio 30.6 H, Glucose 115 H, Calcium 8.8 10/14/19 06:32: POC Glucose 124 H 10/14/19 12:10: POC Glucose 164 H Current Medications Albuterol Sulfate (Ventolin Aerosols) 2.5 mg INHALATION Q6HWA.RT [facility] Last Admin: 10/14/19 14:03 Dose: Not Given Documented by: Albuterol/Ipratropium (Duoneb) 3 ml INHALATION Q4H PRN PRN PRN Reason: Wheeze Last Admin: 10/14/19 14:02 Dose: 3 ml Documented by: Apixaban (Eliquis) 5 mg PO BID [facility] Last Admin: 10/14/19 09:32 Dose: 5 mg Documented by: Aspirin (Ecotrin) 81 mg PO DAILY [facility] Last Admin: 10/14/19 09:33 Dose: 81 mg Documented by: Atorvastatin Calcium (Lipitor) 80 mg PO QHS [facility] Last Admin: 10/13/19 21:33 Dose: 80 mg Documented by: Budesonide (Pulmicort Aerosol) 0.5 mg INHALATION Q12H.RT [facility] Last Admin: 10/14/19 06:42 Dose: 0.5 mg Documented by: Carvedilol (Coreg) 12.5 mg PO BID [facility] Last Admin: 10/14/19 09:33 Dose: 12.5 mg Documented by: Dextrose (D50w Syringe) 0 gm IV X1 PRN; Protocol PRN Reason: Hypoglycemia Furosemide (Lasix) 40 mg IV BID@1000,1800 [facility] Last Admin: 10/14/19 09:36 Dose: 40 mg Documented by: Glucagon () 1 mg IM .X1 PRN PRN Reason: Hypoglycemia Insulin Human Lispro (Humalog Kwikpen (Bkc)) 0 unit SC ACHS [facility]; Protocol Last Admin: 10/14/19 12:14 Dose: 1 u Documented by: Isosorbide Mononitrate (Imdur) 60 mg PO DAILY [facility] Last Admin: 10/14/19 09:33 Dose: 60 mg Documented by: Lisinopril (Zestril) 5 mg PO DAILY [facility] Last Admin: 10/14/19 09:33 Dose: 5 mg Documented by: Oxycodone HCl (Oxyir) 5 - 10 mg PO Q8H PRN PRN PRN Reason: Pain Score 6-10/10 Last Admin: 10/14/19 09:32 Dose: 10 mg Documented by: Pregabalin (Lyrica) 225 mg PO BID [facility] Last Admin: 10/14/19 09:33 Dose: 225 mg Documented by: Sodium Chloride () 10 - 40 ml IV UD PRN PRN Reason: SALINE FLUSH Last Admin: 10/14/19 09:36 Dose: 10 ml Documented by: Medical Necessity - Tobacco Use Smoking Status: Current every day smoker Tobacco Use: Cigarettes Assessment/Plan All Active Problems Acute exacerbation of CHF (congestive heart failure) (Acute) Cellulitis of left leg without foot (Resolved) 1. Acute on chronic diastolic CHF-BNP 427. Chest x-ray demonstrated atelectasis. Recent echo 09/29/2019 demonstrated an EF of 65%. Patient reports 10 pound weight gain. IV Lasix 40 mg twice daily. Strict I&O. Daily weight. David wraps bilateral lower extremities. 2. CAD with history of stents-continue aspirin, statin, beta-kathleen, DAVID inhibitor. 3. Paroxysmal atrial fibrillation-continue beta-kathleen, Eliquis regimen. Rate controlled. 4. Peripheral arterial disease-continue aspirin, statin, Eliquis. 5. COPD with chronic hypoxic respiratory failure-on baseline home O2 requirements. Continue supplement oxygen to maintain O2 at or above 90%. Albuterol aerosol as needed. 6. Hypertension-stable, continue carvedilol, lisinopril regimen. 7. Hyperlipidemia-continue statin. 8. Type 2 diabetes mellitus-hold oral regimen. Accu-Cheks with sliding scale insulin. 9. Chronic normocytic anemia-stable, trend CBC. 10. Morbid obesity- encouraged diet and lifestyle modifications. DVT prophylaxis-Eliquis This patient was seen by DEANDRE Calzada under the supervision of Dr. Douglas. <Jody Douglas - Last Filed: 10/14/19 15:51> - Physical Exam Vitals/I&O's: Vital Signs Temp Pulse Resp BP Pulse Ox 98.4 F 68 18 97/44 L 98 10/14/19 15:15 10/14/19 15:15 10/14/19 15:15 10/14/19 15:15 10/14/19 15:15 Oxygen Flow Rate (L/min) 3 Oxygen Delivery Method Nasal Cannula Weight: 127.9 kg Body Mass Index (BMI) 48.6 Intake and Output for Last 24 Hours 10/12/19 10/13/19 10/14/19 23:59 23:59 23:59 Intake Total 120 / 120 180 / 180 Output Total 700 / 700 1500 / 1500 Balance -580 / -580 -1320 / -1320 Laboratory Results 10/13/19 20:29: POC Glucose 139 H 10/14/19 05:50: WBC 9.1, RBC 3.13 L, Hgb 8.6 L, Hct 29.8 L, MCV 95.2, MCH 27.5, MCHC 28.9 L, RDW Std Deviation 58.4 H, RDW Coeff of Akira 17.1 H, Plt Count 238, MPV 10.4, Immature Gran % (Auto) 0.600, Neut % (Auto) 71.1 H, Lymph % (Auto) 18.0 L, Clinch % (Auto) 7.5, Eos % (Auto) 2.4, Baso % (Auto) 0.4, Absolute Neuts (auto) 6.4, Absolute Lymphs (auto) 1.63, Nucleated RBC % 0 10/14/19 05:50: Sodium 137, Potassium 4.9, Chloride 103, Carbon Dioxide 34.0 H, Anion Gap 0 L, BUN 33 H, Creatinine 1.08 H, Estim Creat Clear Calc 43.65, Est GFR (MDRD) Af Amer 65, Est GFR (MDRD) Non-Af 54 L, BUN/Creatinine Ratio 30.6 H, Glucose 115 H, Calcium 8.8 10/14/19 06:32: POC Glucose 124 H 10/14/19 12:10: POC Glucose 164 H Current Medications Albuterol Sulfate (Ventolin Aerosols) 2.5 mg INHALATION Q6HWA.RT [facility] Last Admin: 10/14/19 14:03 Dose: Not Given Documented by: Albuterol/Ipratropium (Duoneb) 3 ml INHALATION Q4H PRN PRN PRN Reason: Wheeze Last Admin: 10/14/19 14:02 Dose: 3 ml Documented by: Apixaban (Eliquis) 5 mg PO BID [facility] Last Admin: 10/14/19 09:32 Dose: 5 mg Documented by: Aspirin (Ecotrin) 81 mg PO DAILY [facility] Last Admin: 10/14/19 09:33 Dose: 81 mg Documented by: Atorvastatin Calcium (Lipitor) 80 mg PO QHS [facility] Last Admin: 10/13/19 21:33 Dose: 80 mg Documented by: Budesonide (Pulmicort Aerosol) 0.5 mg INHALATION Q12H.RT [facility] Last Admin: 10/14/19 06:42 Dose: 0.5 mg Documented by: Carvedilol (Coreg) 12.5 mg PO BID [facility] Last Admin: 10/14/19 09:33 Dose: 12.5 mg Documented by: Dextrose (D50w Syringe) 0 gm IV X1 PRN; Protocol PRN Reason: Hypoglycemia Furosemide (Lasix) 40 mg IV BID@1000,1800 [facility] Last Admin: 10/14/19 09:36 Dose: 40 mg Documented by: Glucagon () 1 mg IM .X1 PRN PRN Reason: Hypoglycemia Insulin Human Lispro (Humalog Kwikpen (Bkc)) 0 unit SC ACHS [facility]; Protocol Last Admin: 10/14/19 12:14 Dose: 1 u Documented by: Isosorbide Mononitrate (Imdur) 60 mg PO DAILY [facility] Last Admin: 10/14/19 09:33 Dose: 60 mg Documented by: Lisinopril (Zestril) 5 mg PO DAILY [facility] Last Admin: 10/14/19 09:33 Dose: 5 mg Documented by: Oxycodone HCl (Oxyir) 5 - 10 mg PO Q8H PRN PRN PRN Reason: Pain Score 6-10/10 Last Admin: 10/14/19 09:32 Dose: 10 mg Documented by: Pregabalin (Lyrica) 225 mg PO BID [facility] Last Admin: 10/14/19 09:33 Dose: 225 mg Documented by: Sodium Chloride () 10 - 40 ml IV UD PRN PRN Reason: SALINE FLUSH Last Admin: 10/14/19 09:36 Dose: 10 ml Documented by: Assessment/Plan This patient was seen in conjunction with Carey Alfaro ELEMENTARY EDUCATION TEACHER. I have independently interviewed and examined the patient and reviewed pertinent historical, laboratory, and other data. Please refer to her note for patient's presentation, findings, and recommendations. Patient was seen and examined. She is feeling a little better. Been diuresing. Denied any chest pain or dizziness or progressive shortness of breath. Vitals were reviewed -stable Physical Exam: Gen: Morbidly obese, comfortable,, not pale, not jaundiced, alert oriented x3 CVS:HS I +II, regular, no murmurs RESP: Diminished at lung bases GI: BS present and normal, nontender, no palpable organs EXT: Bilateral +4 pedal edema, ulcers on the left lower leg and on the foot, mild erythema, no signs of active cellulitis Labs reviewed: ASSESSMENT: 1. Acute on chronic diastolic CHF 2. CAD status post stent 3. Paroxysmal atrial fibrillation 4. PAD 5. COPD with chronic respiratory failure 6. Hyperlipidemia 7. Type II DM 8. Hypertension 9. Morbid obesity Meds reviewed Plan: Continue on CHF protocol, daily weights, fluid restriction Follow-up on renal panel in the morning Code Visit Inpatient E&M: 42815 Subs Hosp L2
[2019-10-14 17:15] LABS: Bedside Glucose 150 mg/dL (70-110)
--- NOTE | 2019-10-14 17:46 | CPS ---
PRN rx given per pt c/o S.O.B
[2019-10-14 20:40] LABS: Bedside Glucose 216 mg/dL (70-110)
[2019-10-14] MEDS: Atorvastatin Calcium 80 MG Tablet PO (21:09)
--- NOTE | 2019-10-14 21:09 | NURSING ---
PT TOLD THIS NURSE SHE ONLY TAKES HER ELIQUIS DAILY AND WHY IS IT ORDERED TWICE HERE. THIS RN LOOK BACK ON HER HOME MEDS AND THAT IS HOW IT IS ORDERED. PT KEPT SAYING NO THE BOTTLE ONLY SAID ONCE A DAY. THIS RN ASKED IF IT WAS CHANGED FROM LAST TIME SHE WAS D/C FROM HERE. SHE DENIED ANY CHANGE. THIS RN WAS ABLE TO SHOW HER ON HER LAST D/C INSTRUCTIONS SHE WAS TAKING IT TWICE A DAY.
[2019-10-15] VITALS (10 sets, daily range): BP systolic 93–98; BP diastolic 51–53; PULSE 58–78; RESP 16–20; TEMP 36.6–36.7; O2SAT 96–97
[2019-10-15] MEDS: Ipratropium/Albuterol Sulfate 3 ML AMPUL.NEB INHALATION ×3 (00:56→07:18)
[2019-10-15] MEDS: oxyCODONE 5 MG Tablet PO ×2 (01:54→11:00)
[2019-10-15 06:40] LABS: Anion Gap 2 (5-15); BUN 37 mg/dL (7-18); BUN/Creat Ratio 30.3 RATIO (10-20); Calcium,Total 8.5 mg/dL (8.5-10.1); Chloride 102 mmol/L (98-107); Creatinine, Serum 1.22 mg/dL (0.55-1.02); EST Glomerular Filtration Rate 47 mL/min (>60); Est Glom Filt Rate - Afr Amer 57 mL/min (>60); Estimated Creatinine Clearance 38.64 ml/min; Glucose 113 mg/dL (74-106); Potassium 4.7 mmol/L (3.5-5.1); Sodium Level 137 mmol/L (136-145)
[2019-10-15 06:55] LABS: Bedside Glucose 111 mg/dL (70-110)
[2019-10-15] MEDS: Budesonide Respules 0.5 MG/2 ML AMPUL.NEB. INHALATION (07:18)
[2019-10-15] MEDS: Carvedilol 12.5 MG Tablet PO (09:30)
[2019-10-15] MEDS: Aspirin E.C. 81 MG Tablet PO (09:30)
[2019-10-15] MEDS: Isosorbide Mononitrate 60 MG Tablet PO (09:30)
[2019-10-15] MEDS: APIXABAN 5 MG TABLET PO (09:30)
[2019-10-15] MEDS: Pregabalin 75 MG Capsule 225 MG PO (09:31)
--- NOTE | 2019-10-15 10:22 | DCINST_ITS ---
- Discharge Diagnoses Current Active Problems: Current Active and Chronic Problems Acute exacerbation of CHF (congestive heart failure) (Acute) You will use the following diet at home:: Calorie/Carbohydrate Controlled (specify 1200, 1400, etc), Cardiac, Other - 1500 fluid restriction, 2G sodium restriction Discharge Activity: Return to Normal Activity Call your doctor if you observe: Shortness of breath, Dizziness, Fainting spells, Chest pain, - - Report greater than 2lb weight gain to physician Allergies/Adverse Reactions: Allergies diltiazem HCl [From Cardizem] Adverse Reaction (Mild, Verified 10/13/19 11:36) Swelling cephalexin [From Keflex] Adverse Reaction (Verified 10/13/19 11:36) Upset Stomach Medications to take at Discharge Aspirin E.C. [Ecotrin] 81 mg PO DAILY 09/07/14 Lisinopril [Zestril] 5 mg PO DAILY 09/07/14 metFORMIN HCl [Glucophage] 1,000 mg PO BID 09/07/14 Atorvastatin Calcium [Lipitor] 80 mg PO QHS 03/19/16 Pregabalin [Lyrica] 225 mg PO BID 03/19/16 Budesonide/Formoterol 160/4.5 [Symbicort 160/4.5 Mcg Inhaler (SP)] 2 puff INHALATION BID PRN 12/15/17 Carvedilol [Coreg (Beta Adriana)] 12.5 mg PO BID 12/15/17 Furosemide [Lasix] 40 mg PO BID 12/15/17 Oxycodone HCl/Acetaminophen [Oxycodone-Acetaminophen 10-325] 1 - 2 tab PO Q8H PRN PRN 02/27/19 Albuterol Inhaler [Ventolin Hfa] 2 puff IH Q4H PRN PRN 09/28/19 Tiotropium [place] [Spiriva] 18 mcg IH DAILY 09/28/19 Apixaban [Eliquis] 5 mg PO BID 10/13/19 Furosemide [Lasix] 20 mg PO PRN PRN 10/13/19 Isosorbide Mononitrate [Isosorbide Mononitrate ER] 60 mg PO DAILY 10/13/19 Vitamin B Complex 1 ea PO QHS 10/13/19 Primary Care Physician: Dale Vivar DO [Primary Care Provider] - Please follow up with your Primary Care Physician in: 3-5 Days Test Results: Test results from this visit will be discussed in further detail at your follow- up appointment, if applicable. Please Follow Up With: Piyush Lopez MD When: As scheduled, 10/31/19 Proposed Discharge Date: 10/15/19
--- NOTE | 2019-10-15 10:24 | PCM.DC.SUM ---
<Carey Alfaro - Last Filed: 10/15/19 10:29> Discharge Date and Diagnosis Date of Admission: 10/13/19 Date of Discharge: 10/15/19 - Primary Discharge Diagnosis Active and Suspected Problems 1. Acute on chronic diastolic CHF 2. CAD with history of stents 3. Paroxysmal atrial fibrillation 4. Peripheral arterial disease 5. COPD with chronic hypoxic respiratory failure 6. Hypertension 7. Hyperlipidemia 8. Type 2 diabetes mellitus 9. Chronic normocytic anemia 10. Morbid obesity - Secondary Discharge Diagnosis Chronic Problems History of peripheral arterial disease (Chronic) Coronary artery disease (Chronic) Status post stents Hypertension (Chronic) COPD (chronic obstructive pulmonary disease) (Chronic) Neuropathy, diabetic (Chronic) Type 2 diabetes mellitus (Chronic) Hospital Course and Treatment Imaging Results: Diagnostic Data Chest X-Ray 10/13/19 12:48 IMPRESSION: Increased markings at the lung bases suggestive of bibasilar atelectasis. Electronically Signed: Colten Nayan, at 13:51 EST , Service support , Operations: None Procedures: None Summary of Care Provided: The patient is a 69 year old F admitted 10/13/2019 due to shortness of breath, weight gain and lower extremity swelling. 1. Acute on chronic diastolic CHF-BNP 427. Chest x-ray demonstrated atelectasis. Recent echo 09/29/2019 demonstrated an EF of 65%. Patient reports 10 pound weight gain. IV Lasix 40 mg twice daily during admission. Resume Lasix 40 mg p.o. twice daily at discharge with an additional 20 mg of Lasix as needed for increased swelling or greater than 2 pound weight gain. Recommend continued David wraps lower extremities. Sodium and fluid restriction reinforced. Patient has follow-up with cardiology 10/31/2019. 2. CAD with history of stents-continue aspirin, statin, beta-adriana, DAVID inhibitor. 3. Paroxysmal atrial fibrillation-continue beta-adriana, Eliquis regimen. Rate controlled. 4. Peripheral arterial disease-continue aspirin, statin, Eliquis. 5. COPD with chronic hypoxic respiratory failure-on baseline home O2 requirements. Continue supplement oxygen to maintain O2 at or above 90%. Albuterol aerosol as needed. 6. Hypertension-stable, continue carvedilol, lisinopril regimen. 7. Hyperlipidemia-continue statin. 8. Type 2 diabetes mellitus-hold oral regimen. Accu-Cheks with sliding scale insulin. 9. Chronic normocytic anemia-stable, trend CBC. 10. Morbid obesity- encouraged diet and lifestyle modifications. General: Alert, Oriented x3, Cooperative HEENT: Atraumatic, PERRLA, EOMI, Normocephalic Neck: Supple, No JVD, Negative Carotid Bruits Lungs: Clear to auscultation, Diminished Cardiovascular: Regular rate, Regular Rhythm, Normal S1, Normal S2, No murmurs Abdomen: Bowel Sounds Present, Soft, Non Tender, Non-Distended, Obese Extremities: No clubbing, No cyanosis, Edema - +2 bilateral lower extremity Skin: - - Scattered ecchymosis bilateral upper extremities. Healed ulcerations bilateral lower extremities. Musculoskeletal: No Tenderness to Palpation of Joints or Extremities Neurological: Cranial nerves II-XII grossly intact, Neuro grossly intact Psych/Mental Status: Normal Affect, Appropriate Patient seen and examined prior to discharge. Physical assessment as noted above. Patient is stable for discharge with follow up recommendations as noted above. This patient was seen by DEANDRE Calzada under the supervision of Dr. Douglas. - Physical Exam Vitals/I&O's: Vital Signs Temp Pulse Resp BP Pulse Ox 97.9 F 58 L 20 H 93/53 L 96 10/15/19 07:35 10/15/19 07:35 10/15/19 07:35 10/15/19 07:35 10/15/19 08:01 Oxygen Flow Rate (L/min) 3 Oxygen Delivery Method Nasal Cannula Weight: 279 lb 15.793 oz Body Mass Index (BMI) 48.6 Intake and Output for Last 24 Hours 10/13/19 10/14/19 10/15/19 23:59 23:59 23:59 Intake Total 120 / 120 480 / 480 120 / 120 Output Total 700 / 700 2500 / 2500 100 / 100 Balance -580 / -580 -2019 / -2019 Laboratory Results 10/14/19 12:10: POC Glucose 164 H 10/14/19 16:50: POC Glucose 150 H 10/14/19 20:29: POC Glucose 216 H 10/15/19 05:10: Sodium 137, Potassium 4.7, Chloride 102, Carbon Dioxide 33.0 H, Anion Gap 2 L, BUN 37 H, Creatinine 1.22 H, Estim Creat Clear Calc 38.64, Est GFR (MDRD) Af Amer 57 L, Est GFR (MDRD) Non-Af 47 L, BUN/Creatinine Ratio 30.3 H, Glucose 113 H, Calcium 8.5 10/15/19 06:49: POC Glucose 111 H Current Medications Albuterol Sulfate (Ventolin Aerosols) 2.5 mg INHALATION Q6HWA.RT [facility] Last Admin: 10/14/19 19:00 Dose: Not Given Documented by: Albuterol/Ipratropium (Duoneb) 3 ml INHALATION Q4H PRN PRN PRN Reason: Wheeze Last Admin: 10/15/19 07:18 Dose: 3 ml Documented by: Apixaban (Eliquis) 5 mg PO BID [facility] Last Admin: 10/15/19 09:30 Dose: 5 mg Documented by: Aspirin (Ecotrin) 81 mg PO DAILY [facility] Last Admin: 10/15/19 09:30 Dose: 81 mg Documented by: Atorvastatin Calcium (Lipitor) 80 mg PO QHS [facility] Last Admin: 10/14/19 21:09 Dose: 80 mg Documented by: Budesonide (Pulmicort Aerosol) 0.5 mg INHALATION Q12H.RT [facility] Last Admin: 10/15/19 07:18 Dose: 0.5 mg Documented by: Carvedilol (Coreg) 12.5 mg PO BID [facility] Last Admin: 10/15/19 09:30 Dose: 12.5 mg Documented by: Dextrose (D50w Syringe) 0 gm IV X1 PRN; Protocol PRN Reason: Hypoglycemia Furosemide (Lasix) 40 mg PO X1 ONE Stop: 10/15/19 10:06 Glucagon () 1 mg IM .X1 PRN PRN Reason: Hypoglycemia Insulin Human Lispro (Humalog Kwikpen (Bkc)) 0 unit SC ACHS [facility]; Protocol Last Admin: 10/15/19 06:53 Dose: Not Given Documented by: Isosorbide Mononitrate (Imdur) 60 mg PO DAILY [facility] Last Admin: 10/15/19 09:30 Dose: 60 mg Documented by: Lisinopril (Zestril) 5 mg PO DAILY [facility] Last Admin: 10/15/19 10:16 Dose: Not Given Documented by: Oxycodone HCl (Oxyir) 5 - 10 mg PO Q8H PRN PRN PRN Reason: Pain Score 6-10/10 Last Admin: 10/15/19 01:54 Dose: 10 mg Documented by: Pregabalin (Lyrica) 225 mg PO BID [facility] Last Admin: 10/15/19 09:31 Dose: 225 mg Documented by: Sodium Chloride () 10 - 40 ml IV UD PRN PRN Reason: SALINE FLUSH Last Admin: 10/14/19 09:36 Dose: 10 ml Documented by: Discharge Diet: Low fat/ Low Cholesterol, 8 Cup Fluid Restriciton, 2000 mg Sodium Diet, Carb Control Diet Discharge Activity: Return to Normal Activity Call your doctor if you observe: Shortness of breath, Dizziness, Fainting spells, Chest pain, - - Report greater than 2lb weight gain to physician Home Medications: Medications to take at Discharge Aspirin E.C. [Ecotrin] 81 mg PO DAILY 09/07/14 Lisinopril [Zestril] 5 mg PO DAILY 09/07/14 metFORMIN HCl [Glucophage] 1,000 mg PO BID 09/07/14 Atorvastatin Calcium [Lipitor] 80 mg PO QHS 03/19/16 Pregabalin [Lyrica] 225 mg PO BID 03/19/16 Budesonide/Formoterol 160/4.5 [Symbicort 160/4.5 Mcg Inhaler (SP)] 2 puff INHALATION BID PRN 12/15/17 Carvedilol [Coreg (Beta Adriana)] 12.5 mg PO BID 12/15/17 Furosemide [Lasix] 40 mg PO BID 12/15/17 Oxycodone HCl/Acetaminophen [Oxycodone-Acetaminophen 10-325] 1 - 2 tab PO Q8H PRN PRN 02/27/19 Albuterol Inhaler [Ventolin Hfa] 2 puff IH Q4H PRN PRN 09/28/19 Tiotropium [place] [Spiriva] 18 mcg IH DAILY 09/28/19 Apixaban [Eliquis] 5 mg PO BID 10/13/19 Furosemide [Lasix] 20 mg PO PRN PRN 10/13/19 Isosorbide Mononitrate [Isosorbide Mononitrate ER] 60 mg PO DAILY 10/13/19 Vitamin B Complex 1 ea PO QHS 10/13/19 Primary Care Physician: Dale Vivar DO [Primary Care Provider] - Please follow up with your Primary Care Physician in: 3-5 Days Please Follow Up With: Piyush Lopez MD When: As scheduled, 10/31/19 Please Follow Up With: Dale Vivar DO Disposition: Home with Home Health Minutes spent on discharge:: 35 Patient Condition:: Stable Medical Necessity - Tobacco Use Smoking Status: Current every day smoker Tobacco Use: Cigarettes Meaningful Use Info Meaningful Use Diagnoses (Choose all that apply): CHF - CHF DAVID/ARB ordered at discharge?: Yes Documented LVEF (%): 65 <[place] - Last Filed: 10/15/19 14:10> Discharge Date and Diagnosis - Secondary Discharge Diagnosis Chronic Problems History of peripheral arterial disease (Chronic) Coronary artery disease (Chronic) Status post stents Hypertension (Chronic) COPD (chronic obstructive pulmonary disease) (Chronic) Neuropathy, diabetic (Chronic) Type 2 diabetes mellitus (Chronic) Hospital Course and Treatment Summary of Care Provided: This patient was seen in conjunction with Carey Alfaro NP. I have independently interviewed and examined the patient and reviewed pertinent historical, laboratory, and other data. Please refer to her note for patient's presentation, findings, and recommendations. 69-year-old with past medical history of chronic diastolic CHF who comes in with progressive shortness of breath, weight gain and lower extremity swelling. Patient was recently discharged on 09/30/19. Patient's admitting BNPep was 427. She was managed on IV Lasix with significant improvement in her weights and symptoms. Patient is chronically on 3 L of oxygen. She was discharged with reeducation on CHF management with daily weights, low-salt diet, fluid restriction. Physical Exam: Gen: Morbidly obese, comfortable,, not pale, not jaundiced, alert oriented x3 CVS:HS I +II, regular, no murmurs RESP: Diminished at lung bases GI: BS present and normal, nontender, no palpable organs EXT: Bilateral +4 pedal edema, ulcers on the left lower leg and on the foot, mild erythema, no signs of active cellulitis - Physical Exam Vitals/I&O's: Vital Signs Temp Pulse Resp BP Pulse Ox 97.9 F 71 19 H 97/53 L 96 10/15/19 07:35 10/15/19 10:20 10/15/19 10:20 10/15/19 11:00 10/15/19 08:01 Oxygen Flow Rate (L/min) 3 Oxygen Delivery Method Nasal Cannula Weight: 127 kg Body Mass Index (BMI) 48.6 Intake and Output for Last 24 Hours 10/13/19 10/14/19 10/15/19 23:59 23:59 23:59 Intake Total 120 / 120 480 / 480 120 / 120 Output Total 700 / 700 2500 / 2500 100 / 100 Balance -580 / -580 -2019 / -2019 Laboratory Results 10/14/19 16:50: POC Glucose 150 H 10/14/19 20:29: POC Glucose 216 H 10/15/19 05:10: Sodium 137, Potassium 4.7, Chloride 102, Carbon Dioxide 33.0 H, Anion Gap 2 L, BUN 37 H, Creatinine 1.22 H, Estim Creat Clear Calc 38.64, Est GFR (MDRD) Af Amer 57 L, Est GFR (MDRD) Non-Af 47 L, BUN/Creatinine Ratio 30.3 H, Glucose 113 H, Calcium 8.5 10/15/19 06:49: POC Glucose 111 H Code Visit Inpatient E&M: 59641 Disch Hosp
[2019-10-15] MEDS: Furosemide 40 MG Tablet PO (10:41)
[2019-10-15] MEDS: Albuterol 2.5 MG/3 ML VIAL.NEB. INHALATION (10:58)
--- NOTE | 2019-10-15 11:11 | CASEMGMT ---
Addendum entered by Zarina Khalil 10/15/19 12:01: D/C summ/instructions faxed to [facility] at this time with resumption of care for SN, aide-add PT/OT, SW. Call to [facility] to notify of pt discharge at this time, voice understanding of discharge and PT/OT, SW added at this time. CC requests no further info at this time. Raffi GARY CM Original Note: Referral to [facility] for pt at this time and call to [facility] to notify that pt has [facility] set up with [facility] currently, voices understanding. PT/OT added to [facility] resumption of care at this time. Pt updated on all at this time, voices understanding. Pt voices no further questions/concerns/needs at this time. Raffi GARY CM
--- NOTE | 2019-10-16 13:29 | CASEMGMT ---
COOKIE COTA DC PHONE CALL DC DATE: 10/15/2019 DC Disposition: Home with [facility]. Diagnosis on Discharge: CHF, Afib LACE/STRATA: 07/27 Intro role of CM to patient via phone. Pt states she is feeling better, however still tired. No questions re: instructions or prescriptions. Pt states she has heard from nurse, and she will be coming to her home today. No care improvement suggestions given at this time. COOKIE COTA thanked her for using [facility]. Serafin SEBASTIANN RN ACM
--- NOTE | 2019-10-20 11:07 | CCN.REFER ---
S/W patient's . States patient already receives a home visit from a nurse (Emily Bravo RN from [facility]) 1-2 times a week. [facility] Emily has been coming for over a year. Also states patient gets a INDEPENDENT FILM [employer]KER 2 times a week. does not feel patient would benefit from CCN at this time. CM made aware via email.
== END 2019-10-15 11:25 | disposition home or self-care (01) | DRG 292 ==
LOC: ED 14:53 → PCU 15:11
PROVIDERS: Nurse Practitioner Family; Admitting Provider Family Medicine; Emergency Provider Emergency Medicine; PCP Student in an Organized Health Care Education/Training Program; Visit Provider Internal Medicine
DX: I11.0 Hypertensive heart disease with heart failure (principal); J96.11 Chronic respiratory failure with hypoxia; Z68.42 Body mass index [BMI] 45.0-49.9, adult; I50.33 Acute on chronic diastolic (congestive) heart failure; I25.10 Atherosclerotic heart disease of native coronary artery without angina pectoris; Z95.5 Presence of coronary angioplasty implant and graft; I48.0 Paroxysmal atrial fibrillation; E11.40 Type 2 diabetes mellitus with diabetic neuropathy, unspecified; E11.51 Type 2 diabetes mellitus with diabetic peripheral angiopathy without gangrene; J44.9 Chronic obstructive pulmonary disease, unspecified; E78.5 Hyperlipidemia, unspecified; D64.9 Anemia, unspecified; E66.01 Morbid (severe) obesity due to excess calories; Z79.82 Long term (current) use of aspirin; Z79.84 Long term (current) use of oral hypoglycemic drugs; Z79.899 Other long term (current) drug therapy; Z79.51 Long term (current) use of inhaled steroids; Z79.02 Long term (current) use of antithrombotics/antiplatelets; F17.210 Nicotine dependence, cigarettes, uncomplicated; Z99.81 Dependence on supplemental oxygen
CPT/HCPCS: 36415; 71046; 80048; 80053; 82962; 83880; 84484; 85025; 93005; 93971; 94640; 97802; 99285; 99406; A4216; J1940

== ENCOUNTER 2019-10-28 13:07 | Emergency (ER) | payer MEDICARE, MEDICAID, SELFPAY ==
[2019-10-13 16:21] VITALS: BMI 48.6
[2019-10-28 13:09] VITALS: BP 92/60; PULSE 67; RESP 14; TEMP 36.5; BMI 51.1
--- NOTE | 2019-10-28 13:22 | CT_ITS ---
STUDY: CT CERVICAL SPINE WITHOUT CONTRAST REASON FOR EXAM: Female, 69 years old. FALL HITTING HEAD-ON ELIQUIS, LAC TO RT SIDE OF HEAD, HTN, COPD, HEART STENTS X 3, CAD, A-FIB, CHF, CABG RADIATION DOSAGE (If Supplied By Facility): CTDIvol = ( 35.38 ) mGy, DLP = ( 735.58 ) mGycm TECHNIQUE: High resolution transaxial imaging was performed without contrast material. Sagittal and coronal images were reconstructed. Individualized dose optimization techniques were used for this CT. COMPARISON: None FINDINGS: Normal craniovertebral junction. There are degenerative changes of the anterior atlantoaxial articulation. Normal odontoid process. Normal cervical lordosis. Posterior fusion defect of the C1 vertebra which is normal variant. C2-3: Normal endplates. Normal disc height and morphology. Normal central canal and intervertebral neuroforamina. C3-4: Normal endplates. Normal disc height and morphology. Normal central canal and intervertebral neuroforamina. C4-5: Focal ossification of the posterior longitudinal ligament produces mild spinal stenosis. No neural foraminal stenosis. C5-6: Normal endplates. Normal disc height and morphology. Normal central canal and intervertebral neuroforamina. C6-7: Moderate broad disc osteophyte complex produces moderate spinal stenosis. No neural foraminal stenosis. C7-T1: Normal endplates. Normal disc height and morphology. Normal central canal and intervertebral neuroforamina. Normal visualized soft tissue structures. CT/Spine Cervical without Contras IMPRESSION: No acute fracture or subluxation. Electronically Signed: Osmar Owens MD at 14:43 EST Tel , Service support ,
--- NOTE | 2019-10-28 13:22 | CT_ITS ---
STUDY: CT BRAIN WITHOUT CONTRAST REASON FOR EXAM: Female, 69 years old. FALL HITTING HEAD-ON ELIQUIS, LAC TO RT SIDE OF HEAD, HTN, COPD, HEART STENTS X 3, CAD, A-FIB, CHF, CABG RADIATION DOSAGE (If Supplied By Facility): CTDIvol = ( 44.99 ) mGy, DLP = ( 779.24 ) mGycm TECHNIQUE: Transaxial CT imaging of the brain was performed without administration of intravenous contrast material. Individualized dose optimization techniques were used for this CT. COMPARISON: No relevant priors. FINDINGS: Normal soft tissue structures. Normal calvarium. Normal size ventricles and extra-axial spaces for the patient''s age. Normal white matter tracts of the cerebral hemispheres. Normal basal ganglia and thalami. Normal brainstem. Normal cerebellum. There is no intracranial hemorrhage. There are no findings of an acute ischemic infarction. Normal visualized paranasal sinuses. CT/Brain/Head without Contrast IMPRESSION: Normal unenhanced CT scan of the brain. Electronically Signed: Osamr Owens MD at 14:32 EST Tel , Service support ,
--- NOTE | 2019-10-28 13:35 | ED.VIS.GEN ---
History of Present Illness Chief Complaint: Fall Informant: Patient Onset: Today Context: Sudden Onset Timing: Continuous Current Severity: Moderate Maximum Severity: Moderate Narrative: The patient is an obese 69-year-old female with history of chronic respiratory failure secondary to COPD and CHF who is in hospice that presents after a fall with head injury. Patient just was returning from her primary care office. She states she was trying to get up her stairs and her legs gave out. She fell and struck her head. She had immediate bleeding. She does not think she lost consciousness. She denies headache or visual change. She denies any weakness. She was brought in by squad. She has been compliant with all of her medications. Prior similar symptoms: No Recent Illness/Hospitalization: No Past Medical History - Allergies and Home Meds Allergies/Adverse Reactions: Allergies diltiazem HCl [From Cardizem] Adverse Reaction (Mild, Verified 10/28/19 13:09) Swelling cephalexin [From Keflex] Adverse Reaction (Verified 10/28/19 13:09) Upset Stomach Primary Care Physician: Dale Vivar DO [Primary Care Provider] - Prior records reviewed: Yes Past Medical History: - - CHF, COPD, hospice Surgical History: coronary bypass surgery, herniorrhaphy, - - cardiac stent placement, left elbow surgery for nerve entrapment, left heel spur surgery x2, left lower extremity angioplasty Smoking Status: Current every day smoker - Family History Maternal Family History: Reports: Heart Disease, Hypertension Paternal Family History: Reports: Heart Disease, Hypertension Review of Systems General: Denies: Chills, Fever, Sweats Eyes: Denies: Visual changes - bilaterally, Diplopia ENT: Denies: Rhinorrhea, Sore throat Cardiovascular: Denies: Chest pain, Palpitations Respiratory: Denies: Dyspnea, Cough, Dyspnea on exertion Gastrointestinal: Denies: Abdominal pain, Nausea, Vomiting, Diarrhea, Melena, Hematochezia Genitourinary: Denies: Dysuria, Hematuria, Frequency Musculoskeletal: Denies: Back pain, Extremity Pain Skin: Denies: Rash, Wounds Neurological: Denies: Headache, Weakness, Numbness Physical Exam Vital Signs/Narrative: Vital Signs Temp Pulse Resp BP 10/28/19 13:09 97.7 F L 67 14 92/60 Inital Vital Signs reviewed: Yes General: Well nourished, Well developed, No Acute Distress Head: Normocephalic, Trauma - Patient has a 3 cm laceration over the right temporal area with no active bleeding. Eyes: Perrl, EOMI ENT: Moist mucous membranes, No rhinorrhea Neck: Supple, Nontender Cardiovascular: Regular rate, Regular rhythm, No murmurs Respiratory: No distress, CTA bilaterally, Chest nontender Abdomen: Soft, Nontender, Nondistended, Normal bowel sounds Back: Nontender, Normal Inspection Extremities: Nontender, No edema Skin: Normal color, No rash Neurological: Alert, Oriented x3, Cranial nerves II-XII grossly intact, Normal Strength, Normal Sensation Psychological: Normal affect, Normal Mood Diagnostic/Tx/Re-eval Clinical Impression(s) from Imaging Studies Brain CT 10/28/19 13:22 IMPRESSION: Normal unenhanced CT scan of the brain. Electronically Signed: Osmar Owens MD at 14:32 EST Tel , Service support , Cervical Spine CT 10/28/19 13:22 IMPRESSION: No acute fracture or subluxation. Electronically Signed: Osmar Owens MD at 14:43 EST Tel , Service support , - Medical Decision Making The patient presents with mechanical fall with laceration to her scalp. She does take Eliquis. However, the patient is on hospice. Area was immediately addressed. The wound was anesthetized with lidocaine without epinephrine. A total of 3 cc was used. It was copiously irrigated. It was closed with 4 simple interrupted suture without active bleeding. The patient tolerated this without issue. Head CT and CT C-spine were obtained and were negative for acute process. The patient is resting comfortably. At this point, given the fact that she is in hospice and has no further complaints I do feel that she is safe for discharge. She is comfortable with this plan of care. 1. Mechanical fall 2. 3 cm scalp laceration with repair ED Disposition - Plan for ED Patient: Instructions: LACERATION, Scalp Referrals: Dale Vivar DO [Primary Care Provider] - 10 Day for suture removal
[2019-10-28 15:23] VITALS: RESP 16
[2019-10-28 15:47] VITALS: BP 93/62; RESP 20; O2SAT 96
== END 2019-10-28 15:53 | disposition home or self-care (01) ==
LOC: ED 13:48
PROVIDERS: Emergency Provider Emergency Medicine; PCP Student in an Organized Health Care Education/Training Program
DX: S01.01XA Laceration without foreign body of scalp, initial encounter (principal); I50.9 Heart failure, unspecified; J96.10 Chronic respiratory failure, unspecified whether with hypoxia or hypercapnia; J44.9 Chronic obstructive pulmonary disease, unspecified; F17.200 Nicotine dependence, unspecified, uncomplicated; Z79.02 Long term (current) use of antithrombotics/antiplatelets; W10.9XXA Fall (on) (from) unspecified stairs and steps, initial encounter; Y93.01 Activity, walking, marching and hiking; Y92.009 Unspecified place in unspecified non-institutional (private) residence as the place of occurrence of the external cause; Y99.8 Other external cause status
CPT/HCPCS: 12002; 70450; 72125; 99284

== ENCOUNTER 2019-11-08 17:38 | Emergency (ER) | payer SELFPAY ==
[2019-11-08 17:40] VITALS: PULSE 73; RESP 24; TEMP 35.9; O2SAT 99; BMI 52.4
[2019-11-08 17:49] VITALS: PULSE 64; RESP 16; O2SAT 100
[2019-11-08 18:07] VITALS: BP 68/45; PULSE 62; RESP 12; O2SAT 99
--- NOTE | 2019-11-08 18:14 | EKG12_ITS ---
Test Reason : CP Blood Pressure : / mmHG Vent. Rate : 072 BPM Atrial Rate : 100 BPM P-R Int : 000 ms QRS Dur : 138 ms QT Int : 430 ms P-R-T Axes : 000 006 -75 degrees QTc Int : 470 ms Atrial fibrillation Right bundle branch block T wave abnormality, consider inferior ischemia Abnormal ECG Confirmed by SEMAJ MEEK, TEOFILO ([id number]), mapping editor DHIRAJ ARMIJO ([id number]) on 11/12/2019 8:52:37 AM Referred By: DOUG Confirmed By:TEOFILO CHA MD
--- NOTE | 2019-11-08 18:16 | ED.VIS.GEN ---
History of Present Illness Chief Complaint: Chest Pain Informant: Patient Narrative: Patient presents with generalized malaise, chest pain some shortness of breath and lower extremity edema as well as decreased urinary output through her Snow catheter over the past 24 hours. She has no fever or chills, she has no cough or upper respiratory symptoms she has a chronic Snow catheter and is noticed increased burning in her groin region. Past Medical History - Allergies and Home Meds Allergies/Adverse Reactions: Allergies diltiazem HCl [From Cardizem] Adverse Reaction (Mild, Verified 10/28/19 13:09) Swelling cephalexin [From Keflex] Adverse Reaction (Verified 10/28/19 13:09) Upset Stomach Primary Care Physician: Dale Vivar DO [Primary Care Provider] - Past Medical History: - - Hypertension, hypercholesterolemia, diabetes, generalized weakness and immobility, chronic Snow catheter Surgical History: coronary bypass surgery, herniorrhaphy, - - cardiac stent placement, left elbow surgery for nerve entrapment, left heel spur surgery x2, left lower extremity angioplasty Smoking Status: Current every day smoker - Family History Maternal Family History: Reports: Heart Disease, Hypertension Paternal Family History: Reports: Heart Disease, Hypertension Review of Systems All systems negative except as indicated General: Denies: Fever Eyes: Denies: Visual changes - bilaterally ENT: Denies: Rhinorrhea, Sore throat Cardiovascular: Denies: Chest pain Respiratory: Reports: Dyspnea. Denies: Cough Gastrointestinal: Denies: Abdominal pain, Nausea, Vomiting, Diarrhea Genitourinary: Reports: - - Increased pain in her groin region. Denies: Dysuria Musculoskeletal: Denies: Myalgias, Arthralgias Skin: Reports: - - Worsening groin rash Neurological: Reports: - - Dentalized weakness but no focal weakness Endocrine: Denies: Polyuria Hematologic: Reports: Easy bruising - She is anticoagulated on Eliquis Physical Exam Vital Signs/Narrative: Vital Signs Temp Pulse Resp BP Pulse Ox 11/08/19 18:07 62 12 68/45 L 99 11/08/19 17:49 64 16 100 11/08/19 17:40 96.7 F L 73 24 H 99 General: Obese, - - Patient appears chronically ill Head: Normocephalic Eyes: Perrl ENT: - - Slightly dry mucous membranes Neck: Supple Cardiovascular: Regular rate, Regular rhythm, - - No murmurs but auscultation is quite difficult secondary to body habitus, loud emergency department Respiratory: - - Coarse bilateral breath sounds Abdomen: Soft, Nontender Rectal: - - Light brown stool : - - There is Nicole around her genitalia and under her pannus. Snow is intact Back: - - Some lumbar tenderness which is chronic for her no CVA tenderness Extremities: - - Chronic symmetric lower extremity edema without any erythema or calor or any other signs of cellulitis. No crepitus. Neurological: Alert, Oriented x3, Normal Strength, Normal Sensation Diagnostic/Tx/Re-eval Chest X-Ray - ED: 1 View, Read by ED Physician, Normal, Heart, Lungs, Mediastinum Second x-ray shows the endotracheal tube 3 to 4 cm above the samuel, this was readjusted. There is now quite a bit of pulmonary edema - Rhythm Strip Rhythm Strip: A-fib Rate: 72 Ectopy: None - EKG Initial EKG Interpretation: - - Atrial fibrillation with a rate of 72. Right bundle branch pattern. Nonspecific ST and T wave changes. Interpreted by emergency doctor - Medical Decision Making She likely has decompensated heart failure, she came in with hypotension, IV fluids were started however she continued to deteriorate and went bradycardic and then lost her pulse. CPR was initiated immediately I had talked to the family was at bedside especially that patient was in hospice but they had just revoked their hospice and wanted to proceed with CPR. ACLS protocol was maintained patient underwent multiple rounds of epinephrine and atropine and bicarbonate, she was also intubated, I did attempt a right femoral line however she had no pulse and I could not thread the guidewire. At that time the Levophed was running through peripheral line just temporarily. However after about 15 minutes of CPR patient became asystolic and we could not resuscitate her. Patient was pronounced. Family at the bedside. I talked to the son who told me that they were expecting this since she has been quite ill recently. - Critical Care Time Critical care time (excluding procedures): 30-74 minutes, Discussing w/Patient &/or Family/[employer] Systems [employer] Equipment Repairer, Discussing w/Consultants, Arranging Admission or Transfer, Performing Direct Patient Care at Bedside Procedures Procedure(s): Endotracheal intubation: This was an emergent situation, no medications were used I used a 4 oh Mac and 7.5 endotracheal tube. There was color change and bilateral breath sounds afterwards. ED Disposition - Plan for ED Patient: Disposition: Diagnosis: Decompensated heart failure, Cardiac arrest Referrals: Dale Vivar DO [Primary Care Provider] -
--- NOTE | 2019-11-08 18:18 | RAD_ITS ---
STUDY: X-RAY CHEST REASON FOR EXAM: Female, 69 years old. chest pain, best images possible, patient would not allow us to straighten her hips she said if we tried that she would smack us TECHNIQUE: Single AP portable view of the chest. COMPARISON: 10/13/2019 FINDINGS: Lungs are mildly hypoinflated. No acute airspace disease. Calcified left and right hilar granulomas. There is no demonstrated pleural abnormality. Sternal cerclage wires are present from a prior sternotomy. Mild cardiomegaly. Normal mediastinum and theresa. Normal visualized pulmonary arteries. Normal visualized aortic arch and descending thoracic aorta. Normal visualized thoracic spine. Normal visualized ribs, clavicles, and shoulders. There is no demonstrated abnormality of the visualized soft tissue structures of the upper abdomen. RAD/Chest 1 View (Portable) IMPRESSION: No acute finding Electronically Signed: Mingo Almonte DO at 18:58 EST Tel , Service support ,
[2019-11-08 18:30] LABS: Absolute Neutrophil Count 8.8 X10^3/uL (2.0-7.7); Basophil# 0.02 X10^3/uL; Basophil% 0.2 % (0-1); Eosinophil# 0.14 X10^3/uL; Eosinophils% 1.1 % (0-5); Hematocrit 20.5 % (37-47); Hemoglobin 6.3 g/dL (12.0-15.0); Lymphocyte % 16.3 % (19-41); Mean Corp Hgb Conc 30.7 g/dL (32-36); Mean Corpuscular Hgb 28.6 pg (27.0-32.0); Mean Corpuscular Volume 93.2 fL (81-99); Mean Platelet Vol. 10.7 fl (6.2-12.0); Monocyte# 1.16 X10^3/uL; Monocyte% 9.5 % (0-10); NRBC Flagged by Analyzer 0.2 % (0-5); Neutrophil % 71.8 % (47-70); Platelet Count 218 K/mm3 (150-450); RBC Distribution Width CV 18.4 % (11.6-14.6); RBC Distribution Width SD 60.8 fl (35.1-43.9); White Blood Count 12.3 K/mm3 (4.4-11.0)
[2019-11-08 18:46] VITALS: BP 110/44; BP 118/96; BP 93/45; PULSE 47; PULSE 73; PULSE 74; PULSE 79; PULSE 85; PULSE 98; RESP 12; RESP 19; RESP 20; RESP 24; O2SAT 100; O2SAT 97; O2SAT 99
--- NOTE | 2019-11-08 18:56 | EKG12_ITS ---
Test Reason : CODE BLUE/POST-CPR Blood Pressure : / mmHG Vent. Rate : 077 BPM Atrial Rate : 101 BPM P-R Int : 000 ms QRS Dur : 134 ms QT Int : 396 ms P-R-T Axes : 000 -42 085 degrees QTc Int : 448 ms Atrial fibrillation Left axis deviation Non-specific intra-ventricular conduction block Abnormal ECG Confirmed by SEMAJ MEEK, TEOFILO ([id number]), social media editor WILMAR VILLARREAL ([id number]) on 11/12/2019 11:07:28 AM Referred By: FLACA Confirmed By:TEOFILO CHA MD
[2019-11-08 19:04] LABS: ALB/GLOB Ratio 0.7 RATIO (0.9-2.4); AST(SGOT) 251 U/L (15-37); Alanine Aminotransfer ALT/SGPT 161 U/L (13-56); Albumin, Serum 2.4 g/dL (3.2-5.0); Alkaline Phosphatase 121 U/L (45-117); Anion Gap 6 (5-15); BUN 64 mg/dL (7-18); BUN/Creat Ratio 21.6 RATIO (10-20); Calcium,Total 8.3 mg/dL (8.5-10.1); Chloride 93 mmol/L (98-107); Creatinine, Serum 2.96 mg/dL (0.55-1.02); EST Glomerular Filtration Rate 17 mL/min (>60); Est Glom Filt Rate - Afr Amer 20 mL/min (>60); Estimated Creatinine Clearance 15.93 ml/min; Globulin 3.6 g/dL (2.2-4.2); Glucose 108 mg/dL (74-106); Potassium 6.7 mmol/L (3.5-5.1); Sodium Level 123 mmol/L (136-145)
[2019-11-08 19:05] LABS: BNP,B-Type NATRIURETIC PEPTIDE 671.5 pg/mL (0-100)
--- NOTE | 2019-11-08 19:10 | RAD_ITS ---
STUDY: X-RAY CHEST REASON FOR EXAM: Female, 69 years old. ETT PLACEMENT, image was viewed by ordering doctor at patient''s bed side TECHNIQUE: Single AP portable view of the chest. COMPARISON: Chest x-ray earlier FINDINGS: ET tube has been placed roughly 10.2 cm from the samuel. Recommend advancing by roughly 4 cm for more appropriate positioning. Enteric tube is noted however, side-port and tip are not clearly evaluated however, below the left hemidiaphragm. As compared to the chest x-ray from earlier, there is been development of patchy airspace disease bilaterally suggesting pulmonary edema. Remainder is unchanged RAD/Chest 1 View (Portable) IMPRESSION: 1. High riding ET tube as above, recommend advancing 2. Nonvisualized tip of the enteric tube however, below the left hemidiaphragm 3. Development of diffuse pulmonary edema, new from prior x-ray Electronically Signed: Mingo Almonte DO at 19:32 EST Tel , Service support ,
--- NOTE | 2019-11-08 19:17 | CM.ED ---
SOCIAL WORK RESPONDED TO CODE BLUE. EMOTIONAL SUPPORT PROVIDED TO PATIENT'S AND FRIEND. THIS WORKER TO REMAIN AVAILABLE FOR NEEDS. Isaiah VELARDE, HOTEL OPERATIONS MANAGER, COMMERCIAL RETOUCHER.
[2019-11-08 19:21] LABS: Lactic Acid 3.6 mmol/L (0.4-1.9)
[2019-11-08] MEDS: TITRATION PARAMETER CHANGE 1 EACH IV ×2 (19:21→19:26)
[2019-11-08] MEDS: Norepinephrine 8 mg/250 mL 0.9% NS 18.8 MG CONT INF (19:21)
--- NOTE | 2019-11-08 19:26 | ED.RN ---
AT THE TIME LEVOPHED WAS INCREASED TO 20MCG/MIN PER DR. SILVERMAN
--- NOTE | 2019-11-08 19:35 | ED.RN ---
PT HAD A TOTAL OF 2,000ML OF NORMAL SALINE AND 800ML OF BLOOD.
[2019-11-08 22:41] LABS: Reflex Lactate? Y
== END 2019-11-08 19:35 ==
PROVIDERS: Emergency Provider Emergency Medicine; PCP Student in an Organized Health Care Education/Training Program
DX: I46.9 Cardiac arrest, cause unspecified (principal); I11.0 Hypertensive heart disease with heart failure; I50.9 Heart failure, unspecified; E11.9 Type 2 diabetes mellitus without complications; F17.200 Nicotine dependence, unspecified, uncomplicated; E66.9 Obesity, unspecified; Z79.899 Other long term (current) drug therapy
CPT/HCPCS: 31500; 36430; 71045; 80053; 83605; 83880; 84484; 85025; 86850; 86900; 86901; 87040; 92950; 93005; 99285; J7030; J7050; P9016; A4216